=== PATIENT | female | born 1935 | race Caucasian/White ===

== ENCOUNTER → 2023-04-29 | Emergency (ER) | payer OTHER ==
[~2023-04-29] MED LIST: AMOX/K CLAV 875 MG TAB ONE; CEFTRIAXONE 1000 MG/VIAL ONE; HYDROCODONE/APAP 5/325 MG TAB ONE; MOXIFLOXACIN HCL 0.5% 3ML OPTH OPTH SCH
[2023-04-29 08:26] LABS: Absolute Lymphocytes (CBC) 1.2 K/uL (0.7-4.9); Hematocrit 37.4 % (36.0-45.0); Lymphocytes % 9.4 % (15.3-44.8); MCV 97.6 fL (80-100); Platelets 283 thou/uL (152-406); RBC Red Blood Cell Count 3.83 M/uL (3.86-4.86)
--- NOTE | 2023-04-29 08:45 | RAD REPORT ---
EXAM DESCRIPTION: CT - Head Brain Wo Cont - 04/29/2023 8:25 am CLINICAL HISTORY: Headache COMPARISON: None TECHNIQUE: Computed axial tomography of the head was obtained. IV contrast was not requested. All CT scans are performed using dose optimization technique as appropriate and may include automated exposure control or mA/KV adjustment according to patient size. FINDINGS: An intracranial bleed is not seen The ventricles are normal in caliber No extra-axial fluid collection is noted. Prominent cerebral atrophy Mild moderate low-density areas within periventricular, deep and subcortical white matter likely repr esent ischemic changes secondary to small vessel disease. Mild to moderate ethmoid sphenoid and frontal sinusitis. Small amount of fluid within the mastoids IMPRESSION: No acute intracranial abnormality is seen Mild to moderate ethmoid sphenoid and frontal sinusitis If patient's symptoms persist MRI of the brain would be recommended
[2023-04-29 08:48] LABS: Albumin 3.3 g/dL (3.4-5.0); Bilirubin Total 0.6 mg/dL (0.2-1.0); Potassium 3.8 mEq/L (3.5-5.1); Protein, Total 6.8 g/dL (6.4-8.2)
--- NOTE | 2023-04-29 08:53 | ER ---
Nurse's Notes [facility] Name: Rosita Mills Age: 87 yrs Sex: Female : 1935 Arrival Date: 04/29/2023 Time: 07:20 Bed 20 Private MD: Diagnosis: Acute serous otitis media, left ear;Other infective otitis externa, left ear;Acute sphenoidal sinusitis;Acute ethmoidal sinusitis;Elevated white blood cell count Presentation: 04/29 07:55 Chief complaint: Patient's son or daughter states: pt woke up in the middle of the kc6 night with severe sharp left ear pain. daughter states pt hit her head yesterday, denies LOC. Coronavirus screen: At this time, the client does not indicate any symptoms associated with coronavirus-19. Ebola Screen: No symptoms or risks identified at this time. Initial Sepsis Screen: Does the patient meet any 2 criteria? No. Patient's initial sepsis screen is negative. Does the patient have a suspected source of infection? No. Patient's initial sepsis screen is negative. Risk Assessment: Do you want to hurt yourself or someone else? Patient reports no desire to harm self or others. Onset of symptoms was April 29, 2023. 07:55 Method Of Arrival: Ambulatory [facility] 07:55 Acuity: SID 3 kc6 Triage Assessment: 07:56 General: Appears in no apparent distress. uncomfortable, well groomed, well developed, kc6 Behavior is calm, cooperative, appropriate for age. Pain: Complains of pain in left ear. EENT: Reports decreased hearing in right ear pain in left ear. Neuro: Level of Consciousness is awake, alert, obeys commands, Oriented to person, place, time, situation, Appropriate for age. Cardiovascular: Capillary refill < 3 seconds. Respiratory: Airway is patent Trachea midline Respiratory effort is even, unlabored, Respiratory pattern is regular, symmetrical. GI: No signs and/or symptoms were reported involving the gastrointestinal system. : No signs and/or symptoms were reported regarding the genitourinary system. Derm: No signs and/or symptoms reported regarding the dermatologic system. Skin is intact, is healthy with good turgor, Skin is pink, warm \T\ dry. Musculoskeletal: No signs and/or symptoms reported regarding the musculoskeletal system. Circulation, motion, and sensation intact. Capillary refill < 3 seconds, Range of motion: intact in all extremities. 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 - Social history:: Smoking status: Patient denies any tobacco usage or history of. Screenin:58 [facility] ED Fall Risk Assessment (Adult) History of falling in the last 3 months, kc6 including since admission Yes- single mechanical fall (1 pt) Confusion or Disorientation No (0 pts) Intoxicated or Sedated No (0 pts) Impaired Gait No (0 pts) Mobility Assist Device Used No (0 pt) Altered Elimination No (0 pt) Score/Fall Risk Level 0 - 2 = Low Risk. Abuse screen: Denies threats or abuse. Denies injuries from another. Nutritional screening: No deficits noted. Tuberculosis screening: No symptoms or risk factors identified. Assessment: 07:59 Reassessment: please see triage assessment. kc6 Vital Signs: 07:55 BP 147 / 91; Pulse 62; Resp 16 S; Temp 98(O); Pulse Ox 100% on R/A; Weight 45.36 kg kc6 (R); Height 4 ft. 8 in. (R); 07:55 Body Mass Index 22.42 (45.36 kg, 142.24 cm) kc6 [place] Coma Score: 08:04 Eye Response: spontaneous(4). Motor Response: obeys commands(6). Verbal Response: casandra oriented(5). Total: 15. ED Course: 07:25 Patient arrived in ED. ts1 07:26 Neftaly Moreira MD is Attending Physician. casandra 07:42 Syeda Rodríguez RN is Primary Nurse. kc6 07:56 Triage completed. kc6 07:56 Arm band placed on. kc6 07:58 Patient maintains SpO2 saturation greater than 95% on room air. kc6 07:59 Patient has correct armband on for positive identification. Bed in low position. Call [facility] light in reach. Side rails up X2. Adult w/ patient. Client placed on continuous cardiac and pulse oximetry monitoring. NIBP monitoring applied. 08:20 Inserted saline lock: 20 gauge in right antecubital area, using aseptic technique. kc6 Blood collected. 08:27 CT Head Brain wo Cont In Process Unspecified. EDWI 08:51 Amy Womack MD is Referral Physician. [facility] 09:04 No provider procedures requiring assistance completed. IV discontinued, intact, kc6 bleeding controlled, No redness/swelling at site. Pressure dressing applied. Administered Medications: 08:20 Drug: HYDROcodone-acetaminophen PO 5 mg-325 mg 1 tabs PO once Route: PO; kc6 09:04 Follow up: Response: No adverse reaction; Pain is decreased; RASS: Alert and Calm (0) kc6 08:20 Drug: Rocephin IV 1 grams IV at per protocol once; Given slow IV push per pharmacy kc6 instructions Route: IV; Rate: per protocol; Site: right antecubital; 09:04 Follow up: Response: No adverse reaction; IV Status: Completed infusion kc6 08:20 Drug: Amoxicillin-Clavulanate PO 875 mg PO once Route: PO; kc6 09:04 Follow up: Response: No adverse reaction [facility] 08:48 Drug: moxifloxacin Drops 0.5 % (Moxeza) 4 drops Ophthalmic once; to left ear {Note: kc6 left ear.} Route: Ophthalmic; Site: left eye; 09:04 Follow up: Response: No adverse reaction kc6 Medication: 09:04 VIS not applicable for this client. kc6 Outcome: 08:53 Discharge ordered by . [facility] 09:04 Discharged to home ambulatory, with family, kc6 09:04 Condition: improved 09:04 Discharge instructions given to patient, family, Instructed on discharge instructions, follow up and referral plans. medication usage, Demonstrated understanding of instructions, follow-up care, medications, Prescriptions given X 4, 09:05 Patient left the ED. kc6 Signatures: Dispatcher [employer] EDMS Neftaly Moreira MD MD cha Campbell, Kaitlyn, RN RN [id number] Jessica Archuleta PAS PAS ts1
--- NOTE | 2023-04-29 08:53 | EDPHYS ---
Physician Documentation [facility] Name: Rosita Mills Age: 87 yrs Sex: Female : 1935 Arrival Date: 04/29/2023 Time: 07:20 Bed 20 Private MD: MARCELINA Physician Neftaly Moreira HPI: 04/29 08:02 This 87 yrs old Female presents to ER via Ambulatory with complaints of Ear casandra Pain. 08:02 The patient presents with drainage, pain. The complaints affect the left ear. Onset: casandra The symptoms/episode began/occurred 2 day(s) ago. Modifying factors: The symptoms are alleviated by nothing, the symptoms are aggravated by nothing. Associated signs and symptoms: The patient has no apparent associated signs or symptoms. Severity of symptoms: At their worst the symptoms were moderate in the emergency department the symptoms are unchanged. The patient has not experienced similar symptoms in the past. 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 - Social history:: Smoking status: Patient denies any tobacco usage or history of. ROS: 08:03 Constitutional: Negative for fever, chills, and weight loss, Eyes: Negative for injury, casandra pain, redness, and discharge, Neck: Negative for injury, pain, and swelling, Cardiovascular: Negative for chest pain, palpitations, and edema, Respiratory: Negative for shortness of breath, cough, wheezing, and pleuritic chest pain, Abdomen/GI: Negative for abdominal pain, nausea, vomiting, diarrhea, and constipation, Back: Negative for injury and pain, : Negative for injury, bleeding, discharge, and swelling, MS/Extremity: Negative for injury and deformity, Skin: Negative for injury, rash, and discoloration, Neuro: Negative for headache, weakness, numbness, tingling, and seizure, Psych: Negative for depression, anxiety, suicide ideation, homicidal ideation, and hallucinations, Allergy/Immunology: Negative for hives, rash, and allergies, Endocrine: Negative for neck swelling, polydipsia, polyuria, polyphagia, and marked weight changes, Hematologic/Lymphatic: Negative for swollen nodes, abnormal bleeding, and unusual bruising, 08:03 ENT: Positive for ear pain, Exam: 08:03 Constitutional: This is a well developed, well nourished patient who is awake, alert, casandra and in no acute distress. Head/Face: Normocephalic, atraumatic. Eyes: Pupils equal round and reactive to light, extra-ocular motions intact. Lids and lashes normal. Conjunctiva and sclera are non-icteric and not injected. Cornea within normal limits. Periorbital areas with no swelling, redness, or edema. Neck: Trachea midline, no thyromegaly or masses palpated, and no cervical lymphadenopathy. Supple, full range of motion without nuchal rigidity, or vertebral point tenderness. No Meningismus. Chest/axilla: Normal chest wall appearance and motion. Nontender with no deformity. No lesions are appreciated. Cardiovascular: Regular rate and rhythm with a normal S1 and S2. No gallops, murmurs, or rubs. Normal PMI, no JVD. No pulse deficits. Respiratory: Lungs have equal breath sounds bilaterally, clear to auscultation and percussion. No rales, rhonchi or wheezes noted. No increased work of breathing, no retractions or nasal flaring. Abdomen/GI: Soft, non-tender, with normal bowel sounds. No distension or tympany. No guarding or rebound. No evidence of tenderness throughout. Back: No spinal tenderness. No costovertebral tenderness. Full range of motion. Female : Normal external genitalia. Skin: Warm, dry with normal turgor. Normal color with no rashes, no lesions, and no evidence of cellulitis. MS/ Extremity: Pulses equal, no cyanosis. Neurovascular intact. Full, normal range of motion. Neuro: Awake and alert, GCS 15, oriented to person, place, time, and situation. Cranial nerves II-XII grossly intact. Motor strength 5/5 in all extremities. Sensory grossly intact. Cerebellar exam normal. Normal gait. Psych: Awake, alert, with orientation to person, place and time. Behavior, mood, and affect are within normal limits. 08:03 ENT: Ear canal(s): erythema, that is minimal, of the left canal, TM's: dullness, Mouth: is normal, no acute changes, Posterior pharynx: is normal, no acute changes, Vital Signs: 07:55 BP 147 / 91; Pulse 62; Resp 16 S; Temp 98(O); Pulse Ox 100% on R/A; Weight 45.36 kg kc6 (R); Height 4 ft. 8 in. (R); 07:55 Body Mass Index 22.42 (45.36 kg, 142.24 cm) kc6 [place] Coma Score: 08:04 Eye Response: spontaneous(4). Motor Response: obeys commands(6). Verbal Response: casandra oriented(5). Total: 15. MDM: 07:26 Patient medically screened. [facility] 08:04 Differential diagnosis: otitis media, otitis externa, acute otalgia, cerumen impaction. [facility] Data reviewed: vital signs, nurses notes, lab test result(s), radiologic studies, CT scan. Consideration of Admission/Observation Escalation of care including admission/observation considered. I considered the following discharge prescriptions or medication management in the emergency department Medications were administered in the Emergency Department. See MAR. Test considered but Not performed: MRI: no mri brain. Care significantly affected by the following chronic conditions: deaf, cataract, carpal tunnel. 04/29 08:02 Order name: CBC with Diff; Complete Time: 08:36 [facility] 04/29 08:02 Order name: Comprehensive Metabolic Panel; Complete Time: 08:51 [facility] 04/29 08:02 Order name: CT Head Brain wo Cont; Complete Time: 08:51 [facility] 04/29 08:02 Order name: IV Start; Complete Time: 08:19 [facility] Administered Medications: 08:20 Drug: HYDROcodone-acetaminophen PO 5 mg-325 mg 1 tabs PO once Route: PO; 6 09:04 Follow up: Response: No adverse reaction; Pain is decreased; RASS: Alert and Calm (0) 6 08:20 Drug: Rocephin IV 1 grams IV at per protocol once; Given slow IV push per pharmacy kc6 instructions Route: IV; Rate: per protocol; Site: right antecubital; 09:04 Follow up: Response: No adverse reaction; IV Status: Completed infusion kc6 08:20 Drug: Amoxicillin-Clavulanate PO 875 mg PO once Route: PO; kc6 09:04 Follow up: Response: No adverse reaction [facility] 08:48 Drug: moxifloxacin Drops 0.5 % (Moxeza) 4 drops Ophthalmic once; to left ear {Note: kc6 left ear.} Route: Ophthalmic; Site: left eye; 09:04 Follow up: Response: No adverse reaction kc6 Disposition Summary: 04/29/23 08:53 Discharge Ordered Notes: Location: Home [facility] Problem: new casandra Symptoms: have improved casandra Condition: Stable casandra Diagnosis - Acute serous otitis media, left ear casandra - Other infective otitis externa, left ear casandra - Acute sphenoidal sinusitis casandra - Acute ethmoidal sinusitis casandra - Elevated white blood cell count casandra Followup: casandra - With: Private Physician - When: 2 - 3 days - Reason: Recheck today's complaints, Continuance of care, Re-evaluation by your physician Followup: casandra - With: Amy Womack MD - When: 2 - 3 days - Reason: Recheck today's complaints, Re-evaluation by your physician Discharge Instructions: - Discharge Summary Sheet casandra - Otitis Media, Adult casandra - Otitis Externa casandra - Sinusitis, Adult casandra - Otitis Externa, [id number] casandra - Sinusitis, Adult, [id number] casandra - Ear Drops, Adult, [id number] [facility] Forms: - Medication Reconciliation Form [facility] - Thank You Letter [facility] - Antibiotic Education [facility] - Prescription Opioid Use [facility] - Patient Portal Instructions [facility] - Leadership Thank You Letter [facility] Prescriptions: - acetaminophen-codeine 300-30 mg Oral tablet - take 1 tablet ORAL route every 6 hours; 20 tablet; Refills: 0, Product [facility] Selection Permitted - Augmentin 500-125 mg Oral Tablet - take 1 tablet ORAL route every 8 hours for 10 days; 30 tablet; Refills: 0, [facility] Product Selection Permitted - Ciprodex 0.3-0.1 % Otic drops, suspension - instill 4 drops OTIC route every 12 hours for 7 days , for ears ONLY; 10 casandra milliliter; Refills: 0, Product Selection Permitted Signatures: Dispatcher [employer] Neftaly Trujillo MD MD cha Campbell, Kaitlyn RN RN kc6
[2023-04-29 11:09] VITALS: BP 147/91; TEMP 98; O2SAT 100
== END ==
LOC: ER 07:20
DX: H65.02 Acute serous otitis media, left ear (principal); H60.392 Other infective otitis externa, left ear; J01.30 Acute sphenoidal sinusitis, unspecified; J01.20 Acute ethmoidal sinusitis, unspecified; D72.829 Elevated white blood cell count, unspecified
CPT/HCPCS: 96365; 85025; 36415; 80053; 70450; 99285; J0696

== ENCOUNTER → 2023-06-07 | Emergency (ER) | payer OTHER ==
[~2023-06-07] MED LIST changes: -AMOX/K CLAV 875 MG TAB ONE; -CEFTRIAXONE 1000 MG/VIAL ONE; +FENTANYL CITR 100 MCG/2 ML ONE; -HYDROCODONE/APAP 5/325 MG TAB ONE; -MOXIFLOXACIN HCL 0.5% 3ML OPTH OPTH SCH; +NA CHLORIDE 0.9% 500 ML ONE; +ONDANSETRON 4 MG/2 ML VIAL ONE; +propofoL 200 MG/20 ML VIAL IV ONE
--- NOTE | 2023-06-07 16:24 | RAD REPORT ---
EXAM DESCRIPTION: RAD - Forearm Right - 06/07/2023 3:45 pm CLINICAL HISTORY: PAIN COMPARISON: No comparisons TECHNIQUE: Right forearm, 2 views. FINDINGS: Mildly comminuted distal radial metaphyseal fracture with some posteriorly and laterally d isplaced distal fragments. Volar subluxation of the proximal aspect of the radius relative to the car pal bones, although the radiocarpal articulation appears grossly preserved. There is evidence periost eal reaction. No foreign body. Soft tissue swelling about the wrist. IMPRESSION: Mildly comminuted distal radial metaphyseal fracture with some posteriorly and laterally displaced distal fragments. Volar subluxation of the proximal aspect of the radius relative to the c arpal bones.
--- NOTE | 2023-06-07 16:33 | RAD REPORT ---
EXAM DESCRIPTION: RAD - Hand Right 3 View - 06/07/2023 3:45 pm CLINICAL HISTORY: PAIN COMPARISON: No comparisons TECHNIQUE: Right hand, 3 views. FINDINGS: Distal radius fracture better evaluated on the forearm radiographs. Volar subluxation of t he second and third metacarpophalangeal articulations. Scattered moderate to advanced degenerative changes There is no dislocation or periosteal reaction noted. No foreign body or other soft tissue abnormalit y. IMPRESSION: Distal radius fracture better evaluated on the forearm radiographs. Volar subluxation of the second and third metacarpophalangeal articulations.
--- NOTE | 2023-06-07 19:29 | EDPHYS ---
Physician Documentation [facility] Name: Rosita Mills Age: 87 yrs Sex: Female : 1935 Arrival Date: 06/07/2023 Time: 14:41 Bed 14 Private MD: ED Physician Dontae Cisse HPI: 06/07 15:30 This 87 yrs old Female presents to ER via Wheelchair with complaints of Wrist Injury, cp Wrist Pain, Fall Injury. 15:30 The patient or guardian reports decreased range of motion, deformity, injury, pain. The cp complaints affect the right wrist diffusely. Context: resulted from a fall, on an outstretched hand. Onset: The symptoms/episode began/occurred just prior to arrival. Associated signs and symptoms: The patient has no apparent associated signs or symptoms. Historical: - Allergies: 14:57 No Known Allergies; tl4 - Home Meds: 17:44 escitalopram oxalate 5 mg oral tablet 1 tab daily for anxiety with depression [Active]; tl4 pregabalin 100 mg Oral capsule 1 cap daily [Active]; donepezil 5 mg oral tablet 1 tab daily [Active]; Singulair 10 mg Oral tablet 1 tab daily [Active]; omeprazole 40 mg Oral capsule,delayed release (e.c.) 1 cap daily for gastroesophageal reflux disease [Active]; trazodone 100 mg Oral tablet 1 tab every day at bedtime [Active]; oxybutynin chloride 5 mg Oral tablet 1 tab 2 times per day [Active]; simvastatin 10 mg Oral tablet 1 tab daily [Active]; - PMHx: 14:57 carpal tunnel; Cataract; Deaf in right ear; tl4 - PSHx: 14:57 Craniotomy; Tonsillectomy; tl4 17:44 CATARACT; CARPAL TUNNEL; ROTATOR CUFF; tl4 - Immunization history:: Adult Immunizations unknown. - Social history:: Smoking status: Patient denies any tobacco usage or history of. ROS: 15:35 MS/extremity: Positive for injury or acute deformity, decreased range of motion, pain, cp swelling, tenderness, of the right wrist, Negative for paresthesias, 15:35 Eyes: Negative for injury, pain, redness, and discharge, cp 15:35 Constitutional: Negative for body aches, chills, fever, poor PO intake, 15:35 Neck: Negative for pain with movement, pain at rest, stiffness, tenderness, bony tenderness, 15:35 Cardiovascular: Negative for chest pain, 15:35 Respiratory: Negative for cough, shortness of breath, wheezing, 15:35 Back: Negative for pain at rest, pain with movement, 15:35 Neuro: Negative for altered mental status, dizziness, headache, loss of consciousness, numbness, syncope, weakness, 15:35 All other systems are negative, Exam: 15:45 Constitutional: The patient appears in no acute distress, alert, awake, cp non-diaphoretic, non-toxic, well developed, well nourished, obviously ill, uncomfortable, 15:45 Head/Face: Normocephalic, atraumatic. cp 15:45 Eyes: Periorbital structures: appear normal, Pupils: equal, round, and reactive to light and accomodation, Extraocular movements: intact throughout, Conjunctiva: normal, no exudate, no injection, Sclera: no appreciated abnormality, Lids and lashes: appear normal, 15:45 ENT: External ear(s): are unremarkable, Nose: is normal, Mouth: Lips: moist, Oral mucosa: pink and intact, moist, Posterior pharynx: Airway: no evidence of obstruction, patent, 15:45 Neck: C-spine: vertebral tenderness, is not appreciated, crepitus, is not appreciated, ROM/movement: pain, is not appreciated, limited range of motion, is not appreciated, 15:45 Chest/axilla: Inspection: normal, Palpation: crepitus, is not appreciated, tenderness, is not appreciated, 15:45 Cardiovascular: Rate: bradycardic, Rhythm: regular, Edema: is not appreciated, JVD: is not appreciated, 15:45 Respiratory: the patient does not display signs of respiratory distress, Respirations: normal, no use of accessory muscles, no retractions, labored breathing, is not present, Breath sounds: are clear throughout, no decreased breath sounds, no stridor, no wheezing, 15:45 Abdomen/GI: Inspection: abdomen appears normal, Palpation: abdomen is soft and non-tender, in all quadrants, 15:45 Musculoskeletal/extremity: Extremities: grossly normal except: noted in the right wrist: decreased ROM, deformity, pain, swelling, tenderness, ROM: limited active range of motion, in the right wrist, limited passive range of motion due to pain, in the right wrist, Pulses: noted to be 2+ in the right radial artery, the right wrist Severe pain noted. 15:45 Skin: skin tear noted dorsal side of right wrisyt. 15:45 Neuro: Orientation: no acute changes, per family, Mentation: no acute changes, per family, Vital Signs: 14:55 BP 160 / 78; Pulse 58; Resp 20; Temp 98.3(O); Pulse Ox 100% on R/A; Weight 45.36 kg; tl4 Height 4 ft. 8 in. ; Pain 10/10; 19:00 BP 167 / 84; Pulse 60; Resp 17 S; Pulse Ox 96% on R/A; ha1 20:04 BP 176 / 76; Pulse 56; Resp 17 S; Pulse Ox 98% on R/A; ha1 14:55 Body Mass Index 22.42 (45.36 kg, 142.24 cm) tl4 14:55 Pain Scale: Adult tl4 Procedures: 18:59 Reduction: of the right wrist, using traction, manipulation, Immobilized with wrist ec2 splint, Patient tolerated well. Post reduction film - reveals normal alignment. Joint Treatment: Moderate sedation: Pre-procedure assessment: ASA physical classification: I - healthy, no underlying organic disease, Airway assessment: able to hyperextend neck, able to maintain airway, can open mouth without difficulty, Mallampati classification of tongue size: I - faucial pillars, soft palate, and uvula can be fully visualized, Monitoring during procedure: furnace converter, continuous pulse oximetry, nurse at bedside at all times, Medications employed: Propofol, Post-procedure assessment: the patient is mildly sedated. MDM: 15:06 Patient medically screened. cp 06/07 15:13 Order name: XRAY Hand RIGHT 3 View; Complete Time: 19:30 cp 06/07 15:13 Order name: XRAY Forearm RIGHT; Complete Time: 19:30 cp 06/07 18:25 Order name: Forearm Right XRAY; Complete Time: 19:39 ec2 06/07 15:13 Order name: IV; Complete Time: 16:39 cp 06/07 16:37 Order name: Conscious Sedation; Complete Time: 19:15 cp 06/07 16:39 Order name: Splint - Sugar Tong - Forearm; Complete Time: 19:15 cp 06/07 19:50 Order name: Jason; Complete Time: 19:59 cp Administered Medications: 18:03 Drug: fentaNYL (PF) IVP 25 mcg IVP once Route: IVP; Site: left forearm; tl4 18:40 Follow up: Response: No adverse reaction; Pain is decreased nj1 18:03 Drug: NS 0.9% IV 500 ml IV at 75 ml/hr continuous Route: IV; Rate: 75 ml/hr; Site: left tl4 forearm; Delivery: Dial-a-flow; 20:06 Follow up: Response: No adverse reaction; IV Status: Completed infusion; IV Intake: ha1 500ml 18:40 Drug: Ondansetron IVP 4 mg IVP once; over 2 minutes Route: IVP; Site: left forearm; nj1 19:20 Follow up: Response: No adverse reaction nj1 18:54 Drug: Propofol IVP 20 mg IVP once; Document RASS score. {Note: Given in two doses by Dr day Cisse. 40 mg at 1845 and 20 mg at 1854.1854.} Route: IVP; Site: left forearm; 19:20 Follow up: Response: RASS: Drowsy (-1) nj1 19:18 Not Given (Duplicate Order): mg IVP once; Document RASS score. nj1 Disposition: 19:00 I agree with the assessment and plan of care. I reviewed the patient's care provided by 2 Advanced Practice Provider \T\ agree w/ the diagnosis \T\ care plan. I personally saw the pt \T\ performed a substantive portion of the visit, incldng all aspects of the (History/Exam/Medical Decision Making). I saw the patient with PA, patient with a displaced wrist fracture. I assisted with the procedural sedation and risk reduction. Repeat x-ray independently reviewed and interpreted by me, shows interval reduction of the distal bony fragment. Will have the patient follow-up outpatient with orthopedic surgery and with pain medications as needed.. Disposition Summary: 06/07/23 19:29 Discharge Ordered Notes: Location: Home ec2 Condition: Stable ec2 Diagnosis - Wrist Fracture ec2 Followup: ec2 - With: Benito Luna MD - When: - Reason: Recheck today's complaints Discharge Instructions: - Discharge Summary Sheet ec2 - Wrist Fracture Treated With Immobilization, [id number] ec2 Forms: - Medication Reconciliation Form ec2 - Thank You Letter ec2 - Antibiotic Education ec2 - Prescription Opioid Use ec2 - Patient Portal Instructions ec2 - Leadership Thank You Letter ec2 Prescriptions: - acetaminophen-codeine 300-15 mg Oral tablet - take 1 tablet ORAL route 2 times per day; 15 tablet; Refills: 0, Product ec2 Selection Permitted Addendum: 06/11/2023 00:59 I agree with the assessment and plan of care. e c2 Signatures: Dispatcher [employer] EDMT Neftaly Petersen PA PA cp Ina Shen, RN RN nj1 Dontae Cisse MD MD ec2 Arben Dailey RN RN tl4 Shana Mathis RN ha1
--- NOTE | 2023-06-07 19:29 | ER ---
Nurse's Notes [facility] Name: Rosita Mills Age: 87 yrs Sex: Female : 1935 Arrival Date: 06/07/2023 Time: 14:41 Bed 14 Private MD: Diagnosis: Wrist Fracture Presentation: 06/07 14:55 Chief complaint: Patient states: Pt fell onto her right arm on outstretched palm approx tl4 45 min ago. Pt has swelling and pain in the right wrist. +sensation. Coronavirus screen: At this time, the client does not indicate any symptoms associated with coronavirus-19. Ebola Screen: No symptoms or risks identified at this time. Initial Sepsis Screen: Does the patient meet any 2 criteria? No. Patient's initial sepsis screen is negative. Does the patient have a suspected source of infection? No. Patient's initial sepsis screen is negative. Risk Assessment: Do you want to hurt yourself or someone else? Patient reports no desire to harm self or others. Onset of symptoms was June 07, 2023 at 14:15. 14:55 Method Of Arrival: Wheelchair tl4 14:55 Acuity: SID 3 tl4 Triage Assessment: 14:57 General: Appears uncomfortable, Behavior is calm, cooperative. Pain: Complains of pain tl4 in right arm. EENT: No deficits noted. No signs and/or symptoms were reported regarding the EENT system. Neuro: No deficits noted. Cardiovascular: No deficits noted. Respiratory: No deficits noted. GI: No deficits noted. No signs and/or symptoms were reported involving the gastrointestinal system. : No deficits noted. No signs and/or symptoms were reported regarding the genitourinary system. Derm: No deficits noted. No signs and/or symptoms reported regarding the dermatologic system. Musculoskeletal: Reports pain in right arm swelling in right wrist. 19:00 Injury Description: Deformity sustained to right wrist and right arm is dislocated. ha1 Historical: - Allergies: 14:57 No Known Allergies; tl4 - Home Meds: 17:44 escitalopram oxalate 5 mg oral tablet 1 tab daily for anxiety with depression [Active]; tl4 pregabalin 100 mg Oral capsule 1 cap daily [Active]; donepezil 5 mg oral tablet 1 tab daily [Active]; Singulair 10 mg Oral tablet 1 tab daily [Active]; omeprazole 40 mg Oral capsule,delayed release (e.c.) 1 cap daily for gastroesophageal reflux disease [Active]; trazodone 100 mg Oral tablet 1 tab every day at bedtime [Active]; oxybutynin chloride 5 mg Oral tablet 1 tab 2 times per day [Active]; simvastatin 10 mg Oral tablet 1 tab daily [Active]; - PMHx: 14:57 carpal tunnel; Cataract; Deaf in right ear; tl4 - PSHx: 14:57 Craniotomy; Tonsillectomy; tl4 17:44 CATARACT; CARPAL TUNNEL; ROTATOR CUFF; tl4 - Immunization history:: Adult Immunizations unknown. - Social history:: Smoking status: Patient denies any tobacco usage or history of. Screenin:00 [facility] ED Fall Risk Assessment (Adult) History of falling in the last 3 months, ha1 including since admission Yes- single mechanical fall (1 pt) Confusion or Disorientation No (0 pts) Intoxicated or Sedated No (0 pts) Impaired Gait No (0 pts) Mobility Assist Device Used No (0 pt) Altered Elimination No (0 pt) Score/Fall Risk Level 3 or more points = High Risk Oriented to surroundings, Maintained a safe environment, Hourly rounding (assess needs \T\ fall precautionary measures) done. Abuse screen: Denies threats or abuse. Denies injuries from another. Nutritional screening: No deficits noted. Tuberculosis screening: No symptoms or risk factors identified. Assessment: 18:30 General: Appears in no apparent distress. uncomfortable, Behavior is calm, cooperative, nj1 appropriate for age. 18:30 Pain: Complains of pain in right wrist. Neuro: Level of Consciousness is awake, alert, nj1 obeys commands, Oriented to person, place, situation. Cardiovascular: Patient's skin is warm and dry. Cardiovascular: Patient's skin is warm and dry. Respiratory: Airway is patent Respiratory effort is even, unlabored. Musculoskeletal: Bony deformity noted of right wrist Reports pain in right wrist. 18:30 Reassessment: Patient states feeling better. nj1 19:00 General: Appears uncomfortable, Behavior is calm, cooperative. Pain: Complains of pain ha1 in right arm Pain does not radiate. Pain currently is 3 out of 10 on a pain scale. Neuro: Level of Consciousness is awake, alert, pt. is under medication of conscious sedation. Nurse ina in the room with patient . Cardiovascular: Capillary refill < 3 seconds Patient's skin is warm and dry. Respiratory: Airway is patent Respiratory effort is even, unlabored, Respiratory pattern is regular, symmetrical. Musculoskeletal: Circulation, motion, and sensation intact. Bony deformity noted of right arm Reports pain in right arm. 20:02 Reassessment: Patient and/or family updated on plan of care and expected duration. Pain ha1 level reassessed. Patient is alert, oriented x 3, equal unlabored respirations, skin warm/dry/pink. Patient states feeling better. Patient states symptoms have improved. Vital Signs: 14:55 BP 160 / 78; Pulse 58; Resp 20; Temp 98.3(O); Pulse Ox 100% on R/A; Weight 45.36 kg; tl4 Height 4 ft. 8 in. ; Pain 10/10; 19:00 BP 167 / 84; Pulse 60; Resp 17 S; Pulse Ox 96% on R/A; ha1 20:04 BP 176 / 76; Pulse 56; Resp 17 S; Pulse Ox 98% on R/A; ha1 14:55 Body Mass Index 22.42 (45.36 kg, 142.24 cm) tl4 14:55 Pain Scale: Adult tl4 ED Course: 14:45 Patient arrived in ED. kj1 14:57 Triage completed. tl4 14:58 Arm band placed on left wrist. tl4 15:04 Neftaly Petersen PA is PHCP. cp 15:04 Vance Marsh MD is Attending Physician. cp 15:46 XRAY Hand RIGHT 3 View In Process Unspecified. EDMS 15:46 XRAY Forearm RIGHT In Process Unspecified. EDMS 16:39 Missed attempt(s): 22 gauge in left antecubital area. bc6 16:39 Inserted saline lock: 24 gauge in left forearm, using aseptic technique. bc6 17:57 Dontae Cisse MD is Attending Physician. cp 18:17 Ina Shen, RN is Primary Nurse. nj1 18:45 Assist provider with reduction of right wrist using manipulation, Set up for procedure. nj1 Performed by Neftaly Cisse at bedside performing conscious sedation. 19:00 Patient has correct armband on for positive identification. Placed in gown. Bed in low ha1 position. Call light in reach. Side rails up X 1. Adult w/ patient. 19:03 Forearm Right XRAY In Process Unspecified. EDMS 19:29 Benito Luna MD is Referral Physician. ec2 20:01 Provided Education on: follow up with orthopedic . ha1 20:01 IV discontinued, intact, bleeding controlled, No redness/swelling at site. Pressure ha1 dressing applied. Administered Medications: 18:03 Drug: fentaNYL (PF) IVP 25 mcg IVP once Route: IVP; Site: left forearm; tl4 18:40 Follow up: Response: No adverse reaction; Pain is decreased nj1 18:03 Drug: NS 0.9% IV 500 ml IV at 75 ml/hr continuous Route: IV; Rate: 75 ml/hr; Site: left tl4 forearm; Delivery: Dial-a-flow; 20:06 Follow up: Response: No adverse reaction; IV Status: Completed infusion; IV Intake: ha1 500ml 18:40 Drug: Ondansetron IVP 4 mg IVP once; over 2 minutes Route: IVP; Site: left forearm; nj1 19:20 Follow up: Response: No adverse reaction nj1 18:54 Drug: Propofol IVP 20 mg IVP once; Document RASS score. {Note: Given in two doses by Dr day Cisse. 40 mg at 1845 and 20 mg at 1854.1854.} Route: IVP; Site: left forearm; 19:20 Follow up: Response: RASS: Drowsy (-1) nj1 19:18 Not Given (Duplicate Order): [id number] mg IVP once; Document RASS score. nj1 Medication: 20:01 VIS not applicable for this client. ha1 Intake: 20:06 IV: 500ml; Total: 500ml. ha1 Outcome: 19:29 Discharge ordered by . ec2 20:00 Discharged to home ambulatory, with family, ha1 20:00 Condition: stable 20:00 Discharge instructions given to patient, family, Instructed on discharge instructions, follow up and referral plans. medication usage, Demonstrated understanding of instructions, follow-up care, medications, Prescriptions given X 1, 20:07 Patient left the ED. ha1 Signatures: Dispatcher [employer] EDTX Neftaly Petersen PA PA cp Jackson, Kandis kj1 Shana Mathis RN RN ha1 Teresa Chery 6 Ina Shen RN RN nj1 Dontae Cisse MD MD ec2 Arben Dailey RN RN tl4 Corrections: (The following items were deleted from the chart) 19:24 18:45 Assist provider with reduction of right wrist using manipulation, Set up for nj1 procedure. Performed by Dontae Cisse MD nj1
--- NOTE | 2023-06-07 19:34 | RAD REPORT ---
EXAM DESCRIPTION: RAD - Forearm Right - 06/07/2023 7:01 pm CLINICAL HISTORY: post reduction COMPARISON: Forearm Right dated 06/07/2023 TECHNIQUE: Right forearm, 2 views. FINDINGS: Improved alignment of the radiocarpal articulation following closed reduction of the dista l radius fracture fragments. A degree of negative ulnar variance appears to be present. Fiberglass sp lint in place, obscuring fine bony and soft-tissue detail. There is no dislocation or periosteal reac tion noted. No foreign body or other soft tissue abnormality. IMPRESSION: Improved alignment of distal radius fractures following closed reduction.
[2023-06-07 20:33] VITALS: BP 176/76; TEMP 98.3; O2SAT 98
== END ==
LOC: ER 14:41
DX: S52.501A Unspecified fracture of the lower end of right radius, initial encounter for closed fracture (principal); W18.30XA Fall on same level, unspecified, initial encounter
CPT/HCPCS: 73130; 73090 ×2; 25605; J2704; J3010; J2405; J7040

== ENCOUNTER 2023-08-22 20:34 | Emergency (ER) | payer OTHER ==
--- NOTE | 2023-08-22 22:10 | RAD REPORT ---
EXAM DESCRIPTION: RAD - Chest Single View - 08/22/2023 10:03 pm CLINICAL HISTORY: CHEST PAIN Chest pain. COMPARISON: Thorax Wo Con dated 05/16/2023; Ct Skull/Thigh dated 05/31/2023 FINDINGS: Portable technique limits examination quality. Chronic elevation right hemidiaphragm is noted. The lungs are emphysematous. The heart is moderately enlarged in size. Calcified right chest wall lesion. IMPRESSION: No acute intrathoracic process suspected.
[2023-08-22] MEDS ORDERED: cloNIDine HCL 0.1 MG TAB ONE (22:23)
[2023-08-22] MEDS ORDERED: LOSARTAN POTASSIUM 50 MG TABLET ONE (22:23)
[2023-08-22 22:46] LABS: Absolute Basophils 0.1 K/uL (0-0.5); Absolute Eosinophils 0.3 K/uL (0-0.5); Absolute Lymphocytes (CBC) 2.1 K/uL (0.7-4.9); Absolute Monocytes 0.7 K/uL (0.1-1.3); Absolute Neutrophil 2.9 K/uL (1.8-8.0); Basophils % 1.2 % (0-1.3); Eosinophils % 4.5 % (0-4.4); Hematocrit 34.8 % (36.0-45.0); Hemoglobin 11.4 g/dL (12.0-15.0); Lymphocytes % 34.4 % (15.3-44.8); MCHC 32.8 g/dL (32.0-36.0); MCV 97.6 fL (80-100); Monocytes % 12.3 % (3.3-12.3); Neutrophils % 47.6 % (41.7-73.7); Nucleated Red Blood Cells % 0.1 % (0-0); PT Prothrombin Time 11.6 SECONDS (9.5-12.5); Platelets 199 thou/uL (152-406); Protime INR 1.06; RBC Red Blood Cell Count 3.56 M/uL (3.86-4.86); Red Cell Distribution Width 14.4 % (12.1-15.2)
[2023-08-22 23:01] LABS: ALT/SGPT 16 U/L (13-56); AST/SGOT 18 U/L (15-37); Albumin 3.4 g/dL (3.4-5.0); Alkaline Phosphatase 83 U/L (45-117); Anion Gap 8.9 mEq/L (5.0-15.0); BUN Blood Urea Nitrogen 21 mg/dL (7-18); Bicarbonate 28 mEq/L (21-32); Bilirubin Total 0.3 mg/dL (0.2-1.0); Globulin 3.5 g/dL (2.3-3.5); Glomerular Filtration Rate 51 ml/min (=/>90); Glucose Level 86 mg/dL (74-106); NT PRO-BNP 205 pg/mL (<450); Potassium 3.9 mEq/L (3.5-5.1); Protein, Total 6.9 g/dL (6.4-8.2); Sodium Level 139 mEq/L (136-145); Troponin High Sensitivity 15.2 pg/mL (<58.9)
[2023-08-22 23:08] LABS: Bilirubin Direct < 0.2 mg/dL (0-0.2); Bilirubin Indirect, Calculated 0.1 mg/dL (0.2-0.8)
--- NOTE | 2023-08-22 23:56 | EDPHYS ---
Physician Documentation [facility] Name: Rosita Mills Age: 88 yrs Sex: Female : 1935 Arrival Date: 08/22/2023 Time: 20:34 Bed 20 Private MD: Robyn Chan ED Physician Eliecer Aguilar HPI: 08/21 20:42 This 88 yrs old Female presents to ER via Unassigned with complaints of High sp4 Blood Pressure. 08/22 03:37 Very pleasant 88-year-old female presents with elevated blood pressure which was 209/96 sp4 at home. Denied any symptoms. 03:37 Patient's medications at home include escitalopram, Lyrica, donepezil, Singulair, sp4 omeprazole, calcium and D3, trazodone, Centrum Silver, Myrbetriq, tumeric, vitamin D, melatonin, vitamin C, probiotic, Motrin as needed, simvastatin. Also Zyrtec. Patient has history of Alzheimer's type dementia, depression, neuropathy, allergies, gastric reflux, osteoporosis, insomnia, overactive bladder, and GERD. Surgeries include tonsillectomy, carpal tunnel surgery, cataracts, rotator cuff repair, craniotomy, herniated disc, left foot, retina, RSD treatment.. Historical: - Allergies: 08/21 21:10 No Known Allergies; tl4 - PMHx: 21:10 carpal tunnel; Cataract; Deaf in right ear; tl4 - PSHx: 21:10 carpal tunnel; cataract; Craniotomy; rotator cuff; Tonsillectomy; tl4 - Immunization history:: Adult Immunizations unknown. - Infectious Disease History:: Denies. - Social history:: Smoking status: Patient/guardian denies using tobacco, the patient reports quitting approximately 40 years ago. - Family history:: not pertinent. ROS: 08/22 03:37 Constitutional: Negative for fever, chills, and weight loss, sp4 All other systems are negative, Exam: 03:37 Constitutional: This is a well developed, well nourished patient who is awake, alert, sp4 and in no acute distress. Head/Face: Normocephalic, atraumatic. Eyes: Pupils equal round and reactive to light, extra-ocular motions intact. Lids and lashes normal. Conjunctiva and sclera are not injected. Cornea within normal limits. Periorbital areas with no swelling, redness, or edema. ENT: Nares patent. No nasal discharge, no septal abnormalities noted. Tympanic membranes are normal and external auditory canals are clear. Oropharynx with no redness, swelling, or masses, exudates, or evidence of obstruction, uvula midline. Mucous membranes moist. Neck: Trachea midline, no thyromegaly or masses palpated, and no cervical lymphadenopathy. Supple, full range of motion without nuchal rigidity, or vertebral point tenderness. Chest/axilla: Normal chest wall appearance and motion. Nontender with no deformity. No lesions are appreciated. Cardiovascular: Regular rate and rhythm with a normal S1 and S2. No gallops, murmurs, or rubs. Normal PMI, no JVD. No pulse deficits. Respiratory: Lungs have equal breath sounds bilaterally, clear to auscultation and percussion. No rales, rhonchi or wheezes noted. No increased work of breathing, no retractions or nasal flaring. Abdomen/GI: Soft, with normal bowel sounds. No distension or tympany. No guarding or rebound. No evidence of tenderness throughout. Back: No spinal tenderness. No costovertebral tenderness. Skin: Warm, dry with normal turgor. Normal color with no rashes, no lesions, and no evidence of cellulitis. MS/ Extremity: Pulses equal, no cyanosis. Neurovascular intact. Full, normal range of motion. Neuro: Awake and alert, GCS 15, oriented to person, place, time, and situation. Cranial nerves II-XII grossly intact. Motor strength 5/5 in all extremities. Sensory grossly intact. Psych: Awake, alert, with orientation to person, place and time. Behavior, mood, and affect are within normal limits 03:37 ECG was reviewed by the Attending Physician. 2159 includes sinus rhythm with sinus arrhythmia, rate 66. Premature atrial contractions Vital Signs: 08/21 21:08 BP 199 / 85; Pulse 75; Resp 20; Temp 98.2(O); Pulse Ox 99% on R/A; Weight 47.63 kg; tl4 Height 4 ft. 8 in. ; Pain 0/10; 21:45 BP 191 / 77; Pulse 66; Resp 17 S; Pulse Ox 98% on R/A; ha1 22:15 BP 192 / 89; Pulse 68; Resp 16 S; Pulse Ox 97% on R/A; ha1 22:45 BP 163 / 76; Pulse 66; Resp 17 S; Pulse Ox 96% on R/A; ha1 23:10 BP 153 / 65; Pulse 61; Resp 16 S; Pulse Ox 96% on R/A; ha1 23:44 BP 130 / 56; Pulse 65; Resp 16 S; Pulse Ox 96% on R/A; ha1 21:08 Body Mass Index 23.54 (47.63 kg, 142.24 cm) tl4 21:08 Pain Scale: Adult tl4 MDM: 20:42 Patient medically screened. sp4 23:50 ED course: EXAM DESCRIPTION: RAD - Chest Single View - 08/22/2023 10:03 pm CLINICAL sp4 HISTORY: CHEST PAIN Chest pain. COMPARISON: Thorax Wo Con dated 05/16/2023; Ct Skull/Thigh dated 05/31/2023 FINDINGS: Portable technique limits examination quality. Chronic elevation right hemidiaphragm is noted. The lungs are emphysematous. The heart is moderately enlarged in size. Calcified right chest wall lesion. IMPRESSION: No acute intrathoracic process suspected.. 08/22 03:41 Differential diagnosis: hypertensive crisis, Malignant HTN, intracerebral hemorrhage. sp4 Data reviewed: vital signs, nurses notes, lab test result(s), EKG, radiologic studies, plain films. ED course: Patient's blood pressure has improved. We will start her on low-dose losartan 25 mg daily. Will advise follow-up with director of primary care for blood pressure control. . 08/21 20:42 Order name: Basic Metabolic Panel; Complete Time: 23:48 4 08/21 20:42 Order name: CBC with Diff; Complete Time: 23:48 sp4 08/21 20:42 Order name: LFT's; Complete Time: 23:48 4 08/21 20:42 Order name: Magnesium; Complete Time: 23:48 4 08/21 20:42 Order name: NT PRO-BNP; Complete Time: 23:48 4 08/21 20:42 Order name: PT-INR; Complete Time: 23:48 4 08/21 20:42 Order name: Troponin HS; Complete Time: 23:48 4 08/21 20:42 Order name: XRAY Chest (1 view); Complete Time: 23:48 sp4 08/21 20:42 Order name: Cardiac monitoring; Complete Time: 21:49 sp4 08/21 20:42 Order name: EKG - Nurse/Tech; Complete Time: 22:07 sp4 08/21 20:42 Order name: IV Saline Lock; Complete Time: 21:55 sp4 08/21 20:42 Order name: Labs collected and sent; Complete Time: 21:55 sp4 08/21 20:42 Order name: O2 Per Protocol; Complete Time: 21:49 sp4 08/21 20:42 Order name: O2 Sat Monitoring; Complete Time: 21:49 sp4 EC:37 Rate is 66 beats/min. Rhythm is regular, Sinus Rhythm with PACs. QRS [place] is Normal. SC sp4 interval is normal. QRS interval is normal. QT interval is normal. No Q waves. T waves are Normal. No ST changes noted. Clinical impression: No evidence of ischemia. Interpreted by me. Reviewed by me. Administered Medications: 08/21 22:29 Drug: cloNIDine PO 0.1 mg PO once Route: PO; ha1 22:45 Follow up: Response: No adverse reaction; Marked relief of symptoms; Blood pressure is ha1 lowered 22:29 Drug: Losartan PO 50 mg PO once Route: PO; ha1 22:45 Follow up: Response: No adverse reaction; Marked relief of symptoms; Blood pressure is ha1 lowered Disposition Summary: 08/22/23 23:56 Discharge Ordered Notes: Location: Home sp4 Problem: new sp4 Symptoms: have improved sp4 Condition: Stable sp4 Diagnosis - Essential (primary) hypertension sp4 - Hypertensive Urgency sp4 Followup: sp4 - With: Robyn Chan DO - When: 7 - 10 days - Reason: Recheck today's complaints Discharge Instructions: - Discharge Summary Sheet sp4 - Hypertension, Adult sp4 Forms: - Patient Portal Instructions sp4 Prescriptions: - losartan 25 mg Oral tablet - take 1 tablet ORAL route At bedtime for 30 days; 30 tablet; Refills: 0, Product sp4 Selection Permitted Signatures: Dispatcher [employer] Shana Thomson RN RN ha1 Eliecer Aguilar MD MD sp4 Logda, TARA Theodore RN tl4 Corrections: (The following items were deleted from the chart) 20:42 20:42 BASIC METABOLIC PANEL+C.LAB.BRZ ordered. EDMS EDMS 20:42 20:42 CBC+H.LAB.BRZ ordered. EDMS EDMS 20:42 20:42 HEPATIC FUNCTION+C.LAB.BRZ ordered. EDMS EDMS 20:42 20:42 MAGNESIUM+C.LAB.BRZ ordered. EDMS EDMS 20:42 20:42 PROBNP+C.LAB.BRZ ordered. EDMS EDMS 20:42 20:42 PROTIME (+INR)+COAG.LAB.BRZ ordered. EDMS EDMS 20:42 20:42 Troponin High Sensitivity+C.LAB.BRZ ordered. EDMS EDMS 20:42 20:42 Chest Single View+RAD.RAD.BRZ ordered. EDMS EDMS
--- NOTE | 2023-08-22 23:56 | ER ---
Nurse's Notes [facility] Name: Rosita Mills Age: 88 yrs Sex: Female : 1935 Arrival Date: 08/22/2023 Time: 20:34 Bed 20 Private MD: Robyn Chan Diagnosis: Essential (primary) hypertension;Hypertensive Urgency Presentation: 08/21 21:08 Chief complaint: Patient states: Pt states her BP at home was 203/92 per a home tl4 monitoring sxs that notified patient of event. Pt was advised her to be evaluated. Pt denies any [place], dizziness, or any other sxs. Coronavirus screen: At this time, the client does not indicate any symptoms associated with coronavirus-19. Ebola Screen: No symptoms or risks identified at this time. Initial Sepsis Screen: Does the patient meet any 2 criteria? No. Patient's initial sepsis screen is negative. Does the patient have a suspected source of infection? No. Patient's initial sepsis screen is negative. Risk Assessment: Do you want to hurt yourself or someone else? Patient reports no desire to harm self or others. Onset of symptoms was August 22, 2023. 21:08 Method Of Arrival: Ambulatory tl4 21:08 Acuity: SID 3 tl4 Triage Assessment: 21:11 General: Appears in no apparent distress. Behavior is calm, cooperative. Pain: Denies tl4 pain. EENT: No signs and/or symptoms were reported regarding the EENT system. Neuro: Level of Consciousness is awake, alert, obeys commands, Oriented to person, place, time, situation, Moves all extremities. Full function Gait is steady. Cardiovascular: Capillary refill < 3 seconds Patient's skin is warm and dry. Respiratory: Airway is patent Respiratory effort is even, unlabored, Respiratory pattern is regular, symmetrical. GI: No signs and/or symptoms were reported involving the gastrointestinal system. : No signs and/or symptoms were reported regarding the genitourinary system. Derm: No signs and/or symptoms reported regarding the dermatologic system. Musculoskeletal: No signs and/or symptoms reported regarding the musculoskeletal system. Historical: - Allergies: 21:10 No Known Allergies; tl4 - PMHx: 21:10 carpal tunnel; Cataract; Deaf in right ear; tl4 - PSHx: 21:10 carpal tunnel; cataract; Craniotomy; rotator cuff; Tonsillectomy; tl4 - Immunization history:: Adult Immunizations unknown. - Infectious Disease History:: Denies. - Social history:: Smoking status: Patient/guardian denies using tobacco, the patient reports quitting approximately 40 years ago. - Family history:: not pertinent. Screenin/09 00:07 [facility] ED Fall Risk Assessment (Adult) History of falling in the last 3 months, ha1 including since admission No falls in past 3 months (0 pts) Confusion or Disorientation No (0 pts) Intoxicated or Sedated No (0 pts) Impaired Gait No (0 pts) Mobility Assist Device Used No (0 pt) Altered Elimination No (0 pt) Score/Fall Risk Level 0 - 2 = Low Risk Oriented to surroundings, Maintained a safe environment, Educated pt \T\ family on fall prevention, incl call for assistance when getting out of bed, Hourly rounding (assess needs \T\ fall precautionary measures) done. Abuse screen: Denies threats or abuse. Denies injuries from another. Nutritional screening: No deficits noted. Tuberculosis screening: No symptoms or risk factors identified. Assessment: 08/21 21:12 General: Appears comfortable, Behavior is calm, cooperative. Pain: Denies pain. Neuro: ha1 Level of Consciousness is awake, alert, obeys commands, Oriented to person, place, time, situation. Neuro: Reports elevated blood pressure . Cardiovascular: Denies chest pain, Heart tones S1 S2 present Capillary refill < 3 seconds Patient's skin is warm and dry. Respiratory: Airway is patent Respiratory effort is even, unlabored, Respiratory pattern is regular, symmetrical. GI: No signs and/or symptoms were reported involving the gastrointestinal system. EENT: hard hearing . Derm: Skin is pink, warm \T\ dry. Musculoskeletal: Circulation, motion, and sensation intact. Range of motion: intact in all extremities. 22:10 Reassessment: Patient and/or family updated on plan of care and expected duration. Pain ha1 level reassessed. Patient is alert, oriented x 3, equal unlabored respirations, skin warm/dry/pink. Patient denies pain at this time. 23:00 Reassessment: Patient and/or family updated on plan of care and expected duration. Pain ha1 level reassessed. Patient is alert, oriented x 3, equal unlabored respirations, skin warm/dry/pink. Patient denies pain at this time. 23:45 Reassessment: Patient and/or family updated on plan of care and expected duration. Pain ha1 level reassessed. Patient is alert, oriented x 3, equal unlabored respirations, skin warm/dry/pink. Patient denies pain at this time. Vital Signs: 21:08 BP 199 / 85; Pulse 75; Resp 20; Temp 98.2(O); Pulse Ox 99% on R/A; Weight 47.63 kg; tl4 Height 4 ft. 8 in. ; Pain 0/10; 21:45 BP 191 / 77; Pulse 66; Resp 17 S; Pulse Ox 98% on R/A; ha1 22:15 BP 192 / 89; Pulse 68; Resp 16 S; Pulse Ox 97% on R/A; ha1 22:45 BP 163 / 76; Pulse 66; Resp 17 S; Pulse Ox 96% on R/A; ha1 23:10 BP 153 / 65; Pulse 61; Resp 16 S; Pulse Ox 96% on R/A; ha1 23:44 BP 130 / 56; Pulse 65; Resp 16 S; Pulse Ox 96% on R/A; ha1 21:08 Body Mass Index 23.54 (47.63 kg, 142.24 cm) tl4 21:08 Pain Scale: Adult tl4 ED Course: 20:37 Patient arrived in ED. mr 20:37 Robyn Chan DO is Private Physician. mr 20:42 Eliecer Aguilar MD is Attending Physician. sp4 21:10 Triage completed. tl4 21:12 Arm band placed on right wrist. tl4 21:12 Patient has correct armband on for positive identification. Placed in gown. Bed in low ha1 position. Call light in reach. Side rails up X 1. Adult w/ patient. 21:20 Missed attempt(s): 22 gauge in left antecubital area. Bleeding controlled, band aid ha1 applied, catheter tip intact. 21:40 Missed attempt(s): 22 gauge in right antecubital area. Bleeding controlled, band aid ha1 applied, catheter tip intact. 21:55 Shana Mathis RN is Primary Nurse. ha1 21:55 Basic Metabolic Panel Sent. ha1 21:55 CBC with Diff Sent. ha1 21:55 LFT's Sent. ha1 21:55 Magnesium Sent. ha1 21:55 NT PRO-BNP Sent. ha1 21:55 PT-INR Sent. ha1 21:55 Troponin HS Sent. ha1 21:55 No provider procedures requiring assistance completed. Inserted saline lock: 20 gauge ha1 in right antecubital area, using aseptic technique. insertion with ultrasound. 22:05 XRAY Chest (1 view) In Process Unspecified. EDMI 23:55 Robny Chan DO is Referral Physician. sp4 08/22 00:09 IV discontinued, intact, bleeding controlled, No redness/swelling at site. Pressure ha1 dressing applied. 00:10 Provided Education on: blood pressure management and medication administration . ha1 Administered Medications: 08/21 22:29 Drug: cloNIDine PO 0.1 mg PO once Route: PO; ha1 22:45 Follow up: Response: No adverse reaction; Marked relief of symptoms; Blood pressure is ha1 lowered 22:29 Drug: Losartan PO 50 mg PO once Route: PO; ha1 22:45 Follow up: Response: No adverse reaction; Marked relief of symptoms; Blood pressure is ha1 lowered Medication: 08/22 00:07 VIS not applicable for this client. ha1 Outcome: 08/21 23:56 Discharge ordered by . sp4 08/22 00:09 Discharged to home ambulatory, with family, [facility] Condition: stable Discharge instructions given to patient, family, Instructed on discharge instructions, follow up and referral plans. medication usage, Demonstrated understanding of instructions, follow-up care, medications, Prescriptions given X 1, 00:12 Patient left the ED. ha1 Signatures: Dispatcher [employer] [facility] BretMeena, Reg Reg mr Shana Mathis, RN RN ha1 Eliecer Aguilar MD MD sp4 Arben Dailey RN RN tl4
[2023-08-23 01:22] VITALS: BP 130/56; TEMP 98.2; O2SAT 96
--- NOTE | 2023-08-23 14:00 | EKG ---
Test Date: 2023-08-22 Test Time: 21:59:57 Soil Analyst: AMANDA MEASUREMENT RESULTS: Intervals: Rate: 66 [place]: 144 QRSD: 96 QT: 418 QTc: 438 [place]: P: 56 IL: 144 QRS: 37 T: 41 INTERPRETIVE STATEMENTS: Sinus rhythm with marked sinus arrhythmia Otherwise normal ECG No previous ECG available for comparison Electronically Signed On 08-23-23 13:59:10 CDT by Otto Welsh
== END 2023-08-23 00:12 | disposition home or self-care (01) ==
LOC: ER 20:34
DX: I16.0 Hypertensive urgency (principal); G30.9 Alzheimer's disease, unspecified; F02.80 Dementia in other diseases classified elsewhere, unspecified severity, without behavioral disturbance, psychotic disturbance, mood disturbance, and anxiety
CPT/HCPCS: 36415; 71045; 80048; 80076; 83735; 83880; 84484; 85025; 85610; 93005; 99284

== ENCOUNTER 2024-06-30 12:21 | Emergency (ER) | payer OTHER ==
--- NOTE | 2024-06-30 13:14 | RAD REPORT ---
EXAMINATION: ONE VIEW CHEST XR CLINICAL INDICATION: PAIN TECHNIQUE: Frontal chest projection is submitted. Examination is limited by patient positioning and t echnique. 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 Elevated right hemidiaphragm is present. The heart is upper limit of normal in size. Right-sided calcified chest wall lesion unchanged. No displaced fractures are present. IMPRESSION: No acute intrathoracic abnormalities.
--- NOTE | 2024-06-30 13:26 | RAD REPORT ---
EXAM: CT brain without contrast HISTORY: Pain;Trauma COMPARISON: None TECHNIQUE: Multiple contiguous axial images were obtained and a CT of the brain without contrast. Sag ittal and coronal reformats were performed. One or more of the following dose reduction techniques were used: Automated exposure control, adjust ment of the mA and/or kV according to patient size, and/or iterative reconstruction. FINDINGS: No evidence of hydrocephalus, intracranial hemorrhage, or extra-axial fluid collection. Mild brain atrophy with mild periventricular and deep white matter chronic microvascular ischemic ch anges present. No evidence of midline shift or areas of brain edema. The calvarium is intact. The visualized paranasal sinuses and mastoid air cells are essentially clear . IMPRESSION: No evidence of acute intracranial abnormality. EXAM: CT of the cervical spine without contrast HISTORY: Neck pain, injury Pain;Trauma TECHNIQUE: Multiple contiguous axial images were obtained in a CT of the cervical spine without contr ast. Sagittal and coronal reformats were performed. FINDINGS: Advanced osteopenia. There is a fracture somewhat obliquely oriented to the body of C2. Marsha dence of prior fusion C3-5.. Mild multilevel degenerative changes. [id number] prevertebral soft tissue swelling. The lung apices are unremarkable. IMPRESSION: Obliquely oriented minimally displaced fracture involving the C2 body. The findings were communicated with Dr. Mujica at 06/30/2024 1:23 PM by telephone.
[2024-06-30 13:57] LABS: Absolute Lymphocytes (CBC) 0.6 K/uL (0.7-4.9); Absolute Monocytes 0.4 K/uL (0.1-1.3); Basophils % 0.3 % (0-1.3); Eosinophils % 0.1 % (0-4.4); Hematocrit 34.9 % (36.0-45.0); Hemoglobin 11.7 g/dL (12.0-15.0); Lymphocytes % 4.4 % (15.3-44.8); MCH 32.1 pg (27.0-35.0); MCHC 33.5 g/dL (32.0-36.0); MCV 95.9 fL (80-100); MPV 8.7 fL (7.6-11.3); Monocytes % 3.3 % (3.3-12.3); Neutrophils % 91.9 % (41.7-73.7); Nucleated Red Blood Cells % 0.1 % (0-0); Platelets 195 thou/uL (152-406); RBC Red Blood Cell Count 3.65 M/uL (3.86-4.86); Red Cell Distribution Width 13.5 % (12.1-15.2)
[2024-06-30 14:13] LABS: Specific Gravity 1.016 (1.005-1.030); Sqamous Epithelial <5 /HPF (None Seen); Urine Bacteria None Seen /HPF (<20); Urine Bilirubin NEGATIVE (Negative); Urine Blood Trace (Negative); Urine Clarity Clear (Clear); Urine Color Light-Yellow (Yellow); Urine Culture Reflex Order NOT NEEDED; Urine Glucose NEGATIVE (Negative); Urine Ketones NEGATIVE (Negative); Urine Microscopic Reflex YN ORDER UMIC; Urine Mucus Slight /HPF (None Seen); Urine Nitrite NEGATIVE (Negative); Urine Protein TRACE (Negative); Urine RBC <5 /HPF (None Seen); Urine Urobilinogen Normal (Normal); Urine WBC <5 /HPF (<5); Urine pH 5.5 (5.0-7.0)
[2024-06-30 14:15] LABS: Anion Gap 11.4 mEq/L (5.0-15.0); Potassium 4.4 mEq/L (3.5-5.1); Troponin High Sensitivity 24.6 pg/mL (<58.9)
[2024-06-30 15:18] LABS: Blood Morphology Comment NOT SEEN (NOT SEEN); Platelet Estimate ADEQ; White Blood Cell Scan OK (OK)
--- NOTE | 2024-06-30 17:10 | EDPHYS ---
Physician Documentation [facility] Name: Rosita Mills Age: 89 yrs Sex: Female : 1935 Arrival Date: 06/30/2024 Time: 12:21 Bed 14 Private MD: ED Physician Ha Arvizu HPI: 06/30 16:17 This 89 yrs old Female presents to ER via Wheelchair with complaints of Fall dr5 Injury. 16:17 Details of fall: The patient fell from a height. Patient is an 89-year-old female with dr5 history of CHF, carpal tunnel and cataracts coming in with a fall that occurred last night at unknown time. Patient reports that she did not lose consciousness and has not had any nausea or vomiting. Patient reports that she was stepping up on a stool to get back in bed, slipped, and hit the back of her head.. Historical: - Allergies: 12:47 No Known Allergies; ll1 - PMHx: 12:47 carpal tunnel; Deaf in right ear; Cataract; ll1 - PSHx: 12:47 carpal tunnel; cataract; Craniotomy; rotator cuff; Tonsillectomy; ll1 - Immunization history:: Adult Immunizations up to date. - Infectious Disease History:: Denies. - Social history:: Smoking status: Patient/guardian denies using tobacco. ROS: 16:22 Constitutional: as per hpi dr5 Exam: 16:22 Constitutional: This is a well developed, well nourished patient who is awake, alert, dr5 and in no acute distress. 16:22 Eyes: Pupils equal round and reactive to light, extra-ocular motions intact. Lids and lashes normal. Conjunctiva and sclera are non-icteric and not injected. Cornea within normal limits. Periorbital areas with no swelling, redness, or edema. ENT: Nares patent. No nasal discharge, no septal abnormalities noted. Tympanic membranes are normal and external auditory canals are clear. Oropharynx with no redness, swelling, or masses, exudates, or evidence of obstruction, uvula midline. Mucous membranes moist. Neck: Trachea midline, no thyromegaly or masses palpated, and no cervical lymphadenopathy. Supple, full range of motion without nuchal rigidity, or vertebral point tenderness. No Meningismus. Chest/axilla: Normal chest wall appearance and motion. Nontender with no deformity. No lesions are appreciated. Respiratory: Lungs have equal breath sounds bilaterally, clear to auscultation. No rales, rhonchi or wheezes noted. No increased work of breathing, no retractions or nasal flaring. Back: No spinal tenderness. No costovertebral tenderness. Full range of motion. Skin: Warm, dry with normal turgor. Normal color with no rashes, no lesions, and no evidence of cellulitis. Neuro: Awake and alert, GCS 15, oriented to person, place, time, and situation. Cranial nerves II-XII grossly intact. Motor strength 5/5 in all extremities. Sensory grossly intact. Cerebellar exam normal. Normal gait. 16:22 Head/face: Noted is swelling, tenderness, that is mild, of the right occipital area, Vital Signs: 12:46 BP 127 / 94; Pulse 80; Resp 17; Temp 97.4; Pulse Ox 95% ; Weight 47.63 kg; Height 4 ft. ll1 8 in. ; Pain 6/10; 14:00 BP 136 / 62; Pulse 84; Resp 18; Pulse Ox 93% ; me1 15:00 BP 122 / 64; Pulse 77; Resp 18; Pulse Ox 93% on R/A; me1 16:00 BP 120 / 90; Pulse 78; Resp 19; Pulse Ox 92% ; me1 17:00 BP 138 / 63; Pulse 86; Resp 19; Pulse Ox 92% ; me1 18:00 BP 137 / 69; Pulse 81; Resp 21; Pulse Ox 94% ; me1 19:00 BP 117 / 67; Pulse 83; Resp 20; Pulse Ox 92% ; me1 19:42 Pain 3/10; me1 20:00 BP 118 / 58; Pulse 76; Resp 17; Temp 98.4; Pulse Ox 99% ; me1 12:46 Body Mass Index 23.54 (47.63 kg, 142.24 cm) ll1 12:46 Pain Scale: Adult ll1 19:42 Pain Scale: Adult me1 MDM: 12:26 Medical Screening Exam initiated dr5 16:22 Differential diagnosis: abrasion, closed head injury, contusion, fracture. Data dr5 reviewed: vital signs, nurses notes. Consideration of Admission/Observation Patient was admitted/placed on observation. Historians other than the Patient: Daughter in law. Care significantly affected by the following chronic conditions: Congestive Heart Failure. Care significantly affected by the following Social Determinants of Health: Poor access to healthcare and/or lack of insurance, Poor access to transportation, Problems related to employment. Counseling: I had a detailed discussion with the patient and/or guardian regarding the historical points, exam findings, and any diagnostic results supporting the discharge/admit diagnosis, the presence of at least one elevated blood pressure reading (>120/80) during this emergency department visit, radiology results, the need to transfer to another facility, for higher level of care, [facility] does not immediately have the required specialist, Trauma. 17:10 ED course: Patient placed in c-collar. Report given to [facility] and Dr. Beth excepted dr5 patient for transfer.. 06/30 12:51 Order name: Basic Metabolic Panel; Complete Time: 14:16 dr5 06/30 12:51 Order name: CBC with Diff; Complete Time: 15:51 [facility] 06/30 12:51 Order name: NT PRO-BNP; Complete Time: 14:16 06/30 12:51 Order name: Troponin HS; Complete Time: 14:16 dr5 06/30 12:51 Order name: Urinalysis w/ reflexes; Complete Time: 14:15 06/30 15:18 Order name: CBC Smear Scan; Complete Time: 15:51 [facility] 06/30 12:51 Order name: XRAY Chest (1 view); Complete Time: 13:16 dr5 06/30 12:51 Order name: CT Head C Spine; Complete Time: 13:34 dr5 06/30 12:51 Order name: Cardiac monitoring; Complete Time: 17:06 06/30 12:51 Order name: EKG - Nurse/Tech; Complete Time: 17:06 dr5 06/30 12:51 Order name: IV Saline Lock; Complete Time: 13:43 dr5 06/30 12:51 Order name: Labs collected and sent; Complete Time: 13:43 06/30 12:51 Order name: O2 Per Protocol; Complete Time: 13:43 [facility] 06/30 12:51 Order name: O2 Sat Monitoring; Complete Time: 13:43 [facility] 06/30 14:10 Order name: C-Collar; Complete Time: 17:06 dr5 EC:13 Rate is 81 beats/min. Rhythm is regular. QRS [place] is Normal. [place] interval is normal at dr5 156 msec. QRS interval is normal at 90 msec. QT interval is normal at 396 msec. Administered Medications: 19:12 Drug: Ondansetron IVP 4 mg IVP once; over 2 minutes Route: IVP; Site: left antecubital; me1 19:42 Follow up: Response: No adverse reaction; Nausea is decreased me1 19:12 Drug: morphine IVP or IV 2 mg IVP once over 4 mins Route: IVP; Infused Over: 4 mins; me1 Site: left antecubital; 19:42 Follow up: Pain 3/10 Adult; Response: No adverse reaction; Pain is decreased me1 Disposition: 17:35 I was immediately available on-site in the Emergency Department for consultation in the ms3 care of the patient. Disposition Summary: 06/30/24 17:09 Transfer Ordered Notes: Transfer Location: [facility] dr5 Reason: Higher level of care dr5 Condition: Stable dr5 Problem: new dr5 Symptoms: are unchanged dr5 Accepting Physician: Dr. Beth(06/30/24 20:23) me1 Diagnosis - Other displaced fracture of second cervical vertebra, initial encounter for closed dr5 fracture Forms: - Medication Reconciliation Form dr5 - SBAR form dr5 Signatures: Dispatcher [employer] EDMS Rajendra Mahoney RN RN ll1 Ha Arvizu DO DO ms3 Halie Hagan RN RN me1 Davonte Alan FNP-C KINESIOLOGY PROFESSOR-Cdr5 Corrections: (The following items were deleted from the chart) 12:51 12:51 BASIC METABOLIC PANEL+C.LAB.BRZ ordered. EDMS EDMS 12:51 12:51 CBC+H.LAB.BRZ ordered. EDMS EDMS 12:51 12:51 PROBNP+C.LAB.BRZ ordered. EDMS EDMS 12:51 12:51 Troponin High Sensitivity+C.LAB.BRZ ordered. EDMS EDMS 12:51 12:51 Urinalysis+U.LAB.BRZ ordered. EDMS EDMS 12:51 12:51 Chest Single View+RAD.RAD.BRZ ordered. EDMS EDMS 12:52 12:52 Head C Spine MPR Wo Con+CT.RAD.BRZ ordered. EDMS EDMS 16:22 16:17 Patient is an 89-year-old female with history of carpal tunnel and cataracts dr5 coming in with a fall that occurred last night at unknown time. Patient reports that she did not lose consciousness and has not had any nausea or vomiting. Patient reports that she was stepping up on a stool to get back in bed, slipped, and hit the back of her head.. dr5 20:23 17:09 Dr. Beth dr5 me1
--- NOTE | 2024-06-30 17:10 | ER ---
Nurse's Notes [facility] Name: Rosita Mills Age: 89 yrs Sex: Female : 1935 Arrival Date: 06/30/2024 Time: 12:21 Bed 14 Private MD: Diagnosis: Other displaced fracture of second cervical vertebra, initial encounter for closed fracture Presentation: 06/30 12:46 Chief complaint: Patient states: Fell last night on uneven surface. Head and neck pain ll1 since. Coronavirus screen: Client denies travel out of the [place] in the last 14 days. At this time, the client does not indicate any symptoms associated with coronavirus-19. Ebola Screen: Patient denies travel to an Ebola-affected area in the 21 days before illness onset. Initial Sepsis Screen: Does the patient meet any 2 criteria? No. Patient's initial sepsis screen is negative. Does the patient have a suspected source of infection? No. Patient's initial sepsis screen is negative. Risk Assessment: Do you want to hurt yourself or someone else? Patient reports no desire to harm self or others. Onset of symptoms was June 30, 2024. 12:46 Method Of Arrival: Wheelchair ll1 12:46 Acuity: SID 3 ll1 Triage Assessment: 12:48 General: Appears in no apparent distress. Behavior is calm, cooperative, appropriate ll1 for age. Pain: Complains of pain in head Pain radiates to neck. Neuro: Reports headache neck pain. Historical: - Allergies: 12:47 No Known Allergies; ll1 - PMHx: 12:47 carpal tunnel; Deaf in right ear; Cataract; ll1 - PSHx: 12:47 carpal tunnel; cataract; Craniotomy; rotator cuff; Tonsillectomy; ll1 - Immunization history:: Adult Immunizations up to date. - Infectious Disease History:: Denies. - Social history:: Smoking status: Patient/guardian denies using tobacco. Screenin:30 [facility] ED Fall Risk Assessment (Adult) History of falling in the last 3 months, me1 including since admission Yes- single mechanical fall (1 pt) Confusion or Disorientation No (0 pts) Intoxicated or Sedated No (0 pts) Impaired Gait Yes (1 pt) Mobility Assist Device Used Yes (1 pt) Altered Elimination No (0 pt) Score/Fall Risk Level 0 - 2 = Low Risk Maintained a safe environment, Provided non-skid footwear, Hourly rounding (assess needs \T\ fall precautionary measures) done. Abuse screen: Denies threats or abuse. Nutritional screening: No deficits noted. Tuberculosis screening: No symptoms or risk factors identified. Assessment: 13:30 General: Appears uncomfortable, slender, well groomed, well developed, well nourished, me1 Behavior is calm, cooperative, appropriate for age, Reports Fell last night on uneven surface. Head and neck pain since. Pain: Complains of pain in head and back of neck Pain does not radiate. Pain currently is 7 out of 10 on a pain scale. Quality of pain is described as sharp, Pain began suddenly, 1 day ago. Is continuous. Neuro: Level of Consciousness is awake, alert, obeys commands, Oriented to person, place, time, situation, Appropriate for age. Cardiovascular: Patient's skin is warm and dry. Respiratory: Airway is patent Respiratory effort is even, unlabored, Respiratory pattern is regular, symmetrical. GI: No signs and/or symptoms were reported involving the gastrointestinal system. : No signs and/or symptoms were reported regarding the genitourinary system. EENT: No signs and/or symptoms were reported regarding the EENT system. Derm: Skin is intact, is healthy with good turgor, Skin is pink, warm \T\ dry. Musculoskeletal: Reports pain in head and back of neck. Injury Description: Fell last night on uneven surface. Head and neck pain since. 17:58 General: Report called to [place] [facility] to T[facility] Corral. me1 Vital Signs: 12:46 BP 127 / 94; Pulse 80; Resp 17; Temp 97.4; Pulse Ox 95% ; Weight 47.63 kg; Height 4 ft. ll1 8 in. ; Pain 6/10; 14:00 BP 136 / 62; Pulse 84; Resp 18; Pulse Ox 93% ; me1 15:00 BP 122 / 64; Pulse 77; Resp 18; Pulse Ox 93% on R/A; me1 16:00 BP 120 / 90; Pulse 78; Resp 19; Pulse Ox 92% ; me1 17:00 BP 138 / 63; Pulse 86; Resp 19; Pulse Ox 92% ; me1 18:00 BP 137 / 69; Pulse 81; Resp 21; Pulse Ox 94% ; me1 19:00 BP 117 / 67; Pulse 83; Resp 20; Pulse Ox 92% ; me1 19:42 Pain 3/10; me1 20:00 BP 118 / 58; Pulse 76; Resp 17; Temp 98.4; Pulse Ox 99% ; me1 12:46 Body Mass Index 23.54 (47.63 kg, 142.24 cm) ll1 12:46 Pain Scale: Adult ll1 19:42 Pain Scale: Adult ut1 ED Course: 12:25 Patient arrived in ED. cj3 12:26 Davonte Alan FNP-C [facility]5 12:26 Ha Arvizu DO is Attending Physician. dr5 12:46 Arm band placed on. ll1 12:47 Triage completed. ll1 13:11 XRAY Chest (1 view) In Process Unspecified. EDMS 13:13 CT Head C Spine In Process Unspecified. EDMS 13:29 Halie Hagan, RN is Primary Nurse. me1 13:30 Patient has correct armband on for positive identification. Bed in low position. Call [facility] light in reach. Side rails up X 1. Provided Education on: POC. Verbalized understanding.. Client placed on continuous cardiac and pulse oximetry monitoring. NIBP monitoring applied. brush holder assembler on. Pulse ox on. NIBP on. 13:30 No provider procedures requiring assistance completed. ut1 13:43 Basic Metabolic Panel Sent. me1 13:43 CBC with Diff Sent. ut1 13:43 Troponin HS Sent. ut1 13:43 Initial lab(s) drawn, by ut, sent to lab. Inserted saline lock: 22 gauge in left [facility] antecubital area, using aseptic technique. 16:43 initiated transfer to [facility]. bd 16:53 pt accepted in transfer to [facility] ER by dr dubois admin approval given by maxine Zapata 17:06 EKG done, by ED staff, reviewed by Davonte NO. ut1 18:09 Patient transferred, IV remains in place. [facility] Administered Medications: 19:12 Drug: Ondansetron IVP 4 mg IVP once; over 2 minutes Route: IVP; Site: left antecubital; [facility] 19:42 Follow up: Response: No adverse reaction; Nausea is decreased [facility] 19:12 Drug: morphine IVP or IV 2 mg IVP once over 4 mins Route: IVP; Infused Over: 4 mins; me1 Site: left antecubital; 19:42 Follow up: Pain 3/10 Adult; Response: No adverse reaction; Pain is decreased me1 Medication: 13:30 VIS not applicable for this client. me1 Outcome: 17:09 ER care complete, transfer ordered by . dr5 18:09 Transferred by ground EMS to [facility], Note: report called to TARA Corral me1 18:09 Condition: stable 18:09 Instructed on the need for transfer, 20:23 Patient left the ED. me1 Signatures: Dispatcher [employer] EDMS Belkys Dejesus Lynsay, RN RN 1 Halie Hagan RN RN me1 Davonte Alan, NURSERY SCHOOL TEACHER-C NURSERY SCHOOL TEACHER-Cdr5 Angelica Min cj3 Corrections: (The following items were deleted from the chart) 13:29 12:46 Chief complaint: Patient states: Fell last night on uneven surface. Head and neck me1 pain since. 1
[2024-06-30] MEDS ORDERED: MORPHINE 2 MG/ML SYR ONE (19:02)
[2024-06-30] MEDS ORDERED: ONDANSETRON 4 MG/2 ML VIAL ONE (19:02)
[2024-06-30 20:36] VITALS: BP 118/58; TEMP 98.4; O2SAT 99
--- NOTE | 2024-07-02 12:36 | EKG ---
Test Date: 2024-06-30 Test Time: 14:13:53 Casting Finisher: ELLE MEASUREMENT RESULTS: Intervals: Rate: 81 PA: 156 QRSD: 90 QT: 396 QTc: 460 [place]: P: 59 PA: 156 QRS: 27 T: 44 INTERPRETIVE STATEMENTS: Normal sinus rhythm Normal ECG Compared to ECG 08/22/2023 21:59:57 Sinus arrhythmia no longer present Electronically Signed On 07-02-24 12:27:11 CDT by Jason Willard
== END 2024-06-30 20:23 | disposition short-term general hospital (02) ==
LOC: ER 12:21
DX: S12.190A Other displaced fracture of second cervical vertebra, initial encounter for closed fracture (principal); W18.30XA Fall on same level, unspecified, initial encounter
CPT/HCPCS: 93005; 85025; 81001; 80048; 36415; 84484; 83880; 70450; 72125; 71045; 96375; 96374; 99285; J2270; J2405

== ENCOUNTER 2024-09-05 13:18 | Observation (INO) | payer OTHER ==
--- OUTSIDE RECORDS SUMMARY | 2024-09-05 13:23 | XMS REPORT | Continuity of Care Document ---
Author Name Unknown Address [address] [facility] [place] [address] [facility] Address [address] [place] [address] Care Team Providers Care Video Editing Internship Name Role Phone DineroBonnieRobyn Primary Care Physician [phone] Kirit HAYES, Isaak Arias Attending Clinician [phone], Opid Mc Xr Attending Clinician Unavailable 1, Opid Mc Xr/Fl Attending Clinician Unavailable Laurie HAYES, Elsy Doss Attending Clinician [phone] Smooth HAYES, Candice Gross Attending Clinician [phone] Lian HAYES, Isaak Lawson Attending C linician Carlos HAYES, Yesica Garcia Attending Clinician + [phone] Stewart HAYES, Frankie Arellano Attending Clinician Sukumar HAYES, Missy Mccoy Attending Clinician [phone] Barry HAYES, Candice Walton Attending Clinician + [phone] Omega Kulkarni MD Attending Clinician [phone] Alex HAYES, Brady Zelaya Attending Clinician + [phone] Forrest Haro MD Attending Clinician YESICA GONZALEZ Attending Clinician Yesica Rios MD Admitting Clinician [phone] YESICA GONZALEZ Admitting Clinician Harman gatica Payers Payer Name Policy Type Policy Number Effective Date Expirati on Date Source MEDICARE PART A AND B Medicare [id number] 2024 00:00:00 FOR LIFE Other [id number] 2024 00:00:00 [employer] LIFE [id number] 2024 00:00:00 MEDICARE PART A AND B [id number] 2001 00:00:00 Problems Condition Name Condition Details Condition Category Status Onset Date Resolution Date Last Treatment Date Treating Clinician Comments Source Impaired cognition Impaired Cognition Problem Active 08-14 00:00: 00 [facility] Peripheral neuropathi c pain Peripheral Neuropathi c Pain Problem Active 08-01 00:00: 00 [facility] Anemia of chronic disease Anemia of Chronic Disease Problem Active 07-29 00:00: 00 [facility] Alzheimer' s disease Alzheimer' s Disease Problem Active 07-21 00:00: 00 [facility] Bilateral hearing loss Bilateral Hearing Loss Problem Active 07-21 00:00: 00 [facility] 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 Problem Active 07-21 00:00: 00 [facility] Cerebral atheroscle rosis Cerebral Atheroscle rosis Problem Active 07-21 00:00: 00 [facility] 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 Problem Active 07-21 00:00: 00 [facility] Incontinen ce Incontinen ce Problem Active 07-21 00:00: 00 [facility] Closed fracture of second cervical vertebra Closed Fracture of Second Cervical Vertebra Problem Active - 00:00: 00 [facility] Compressio n fracture of thoracic spine Compressio n Fracture of Thoracic Spine Problem Active 07-21 00:00: 00 [facility] Chronic kidney disease stage 3A Chronic Kidney Disease Stage 3a Problem Active 07-21 00:00: 00 [facility] Type III fracture of odontoid process of axis Type III Fracture of Odontoid Process of Artemus Problem Active 07-21 00:00: 00 [facility] Chronic kidney disease stage 3B Chronic Kidney Disease Stage 3B Problem Active 07-21 00:00: 00 [facility] 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 Problem Active 07-21 00:00: 00 [facility] Mixed hyperlipid emia Mixed Hyperlipid emia Problem Active 07-21 00:00: 00 [facility] Secondary immune deficiency disorder Secondary Immune Deficiency Disorder Problem Active 07-21 00:00: 00 [facility] Senile purpura Senile Purpura Problem Active 07-21 00:00: 00 [facility] Hypercoagu lability state Hypercoagu lability State Problem Active 07-21 00:00: 00 [facility] Itching Itching Disease Active 07-07 00:00: 00 [facility] Ground-lev el fall Ground-lev el fall Disease Active 07-02 00:00: 00 [facility] Alzheimer' s dementia Alzheimer' s dementia Disease Active 07-02 00:00: 00 Rodney Johnson Essential hypertensi on Essential hypertensi on Disease Active 07-02 00:00: 00 Rodney Johnson COPD (chronic obstructiv e pulmonary disease) COPD (chronic obstructiv e pulmonary disease) Disease Active 07-02 00:00: 00 Rodney Johnson Mixed hyperlipid emia Mixed hyperlipid emia Disease Active 07-02 00:00: 00 Rodney Johnson Compressio n fracture of T3 vertebra Compressio n fracture of T3 vertebra Disease Active 07-02 00:00: 00 [facility] Johnson Traumatic subdural hematoma Traumatic subdural hematoma Disease Active 07-01 00:00: 00 Rodney Johnson Type III fracture of odontoid process Type III fracture of odontoid process Disease Active 07-01 00:00: 00 [facility] Closed nondisplac ed fracture of second cervical vertebra, unspecifie d fracture morphology , initial encounter ([facility]) Closed nondisplac ed fracture of second cervical vertebra, unspecifie d fracture morphology , initial encounter ([facility]) Disease Active 07-01 00:00: 00 [facility] Social History Social Habit Start Date Stop Date Quantity Comments Source ASSERTION Possible [facility] Sexual orientation [facility] Gender identity [facility] Tobacco use and exposure 2024-08-28 00:00:00 2024-08-28 00:00:00 Smokeless tobacco non-user [facility] Alcoholic beverage intake 2024-08-28 00:00:00 2024-08-28 00:00:00 Lifetime non-drinker (finding) [facility] History of Social function 2024-07-04 00:00:00 2024-07-04 00:00:00 [facility] Sex 2024-06-30 16:54:16 2024-06-30 16:54:16 Female (finding) [facility] Sex assigned at 1935 00:00:00 1935 00:00:00 F [facility] Smoking Status Start Date Stop Date Source Never smoked tobacco [facility] th Medications Ordered Medication Name Filled Medication Name Start Date Stop Date Current Medication? Ordering Clinician Indication Dosage Frequency Signature (SIG) Comments Components Source Keppra 100 MG/ML solution 08-28 11:42: 43 Yes 5mL Q12H 5 mL every 12 (twelve) hours. [facility] oxyCODONE (Roxicodone ) 5 MG immediate release tablet 08-28 11:42: 43 Yes Q6H every 6 (six) hours. [facility] traZODone (Desyrel) 100 MG tablet 08-28 11:42: 43 Yes 100mg Take 100 mg by mouth. [facility] acetaminoph en (Tylenol) 325 MG tablet 07-13 00:00: 00 Yes Q8H Take by mouth every 8 (eight) hours. [facility] levETIRAcet am 500 MG/5ML solution 07-12 00:00: 00 Yes Q12H Take by mouth every 12 (twelve) hours. [facility] escitalopra m (Lexapro) 10 MG tablet 07-09 00:00: 00 Yes Take by mouth 1 (one) time each day at the same time. [facility] Cozaar 50 MG tablet 07-09 00:00: 00 Yes Take by mouth 1 (one) time each day at the same time. [facility] Namzaric 7-10 MG capsule sustained-r elease 24 hr 07-09 00:00: 00 Yes Namzaric 7 mg-10 mg capsule sprinkle,e xtended release Take 1 capsule by oral route for 14 days. [facility] montelukast (Singulair) 10 MG tablet 07-09 00:00: 00 Yes Take by mouth. [facility] omeprazole (PriLOSEC) [address] capsule 07-09 00:00: 00 Yes Take by mouth 1 (one) time each day at the same time. [facility] pregabalin (Lyrica) 100 MG capsule 07-09 00:00: 00 Yes pregabalin 100 mg capsule Take 1 capsule every day by oral route at bedtime for 14 days. [facility] simvastatin (Zocor) 10 MG tablet 07-09 00:00: 00 Yes Take by mouth. [facility] Memantine HCl-Donepez il HCl 7-10 MG capsule sustained-r elease 24 hr Memantine HCl-Donepez il HCl 7-10 MG capsule sustained-r elease 24 hr 07-09 00:00: 00 08-08 23:59 :00 Yes 1273 1{capsu le} QD Take 1 capsule by mouth 1 time each day. Do not start before July 09, 2024. Rodney Mckeon Epic lidocaine 4 % patch patch lidocaine 4 % patch patch 07-09 00:00: 00 08-08 23:59 :00 No 1{patch } QD Apply 1 patch over 12 hours topically 1 time each day. [facility]ney Ramonann Epic polyethylen e glycol, PEG, 3350 (Miralax) 17 g packet polyethylen e glycol, PEG, 3350 (Miralax) 17 g packet 07-09 00:00: 00 07-12 23:59 :00 No 17g QD Take 17 g by mouth 1 time each day for 3 days. Rodney Johnson traZODone (Desyrel) 100 MG tablet traZODone (Desyrel) 100 MG tablet 07-08 15:53: 53 07-08 00:00 :00 No 100mg Take 100 mg by mouth at bedtime. [facility]ney Johnson amLODIPine- olmesartan (Shaneka) 5-20 MG tablet amLODIPine- olmesartan (Shaneka) 5-20 MG tablet 07-08 15:53: 53 07-08 00:00 :00 No 87 1{tbl} QD Take 1 tablet by mouth 1 time each day. 10/ 40 mg Rodney Johnson simvastatin (Zocor) 10 MG tablet simvastatin (Zocor) 10 MG tablet 07-08 15:53: 51 Yes 10mg Take 10 mg by mouth at bedtime. Rodney Johnson omeprazole (PriLOSEC) [address] capsule omeprazole (PriLOSEC) [address] capsule 07-08 15:53: 51 Yes 40mg Take 40 mg by mouth in the morning. Take before meals. Do not crush or chew. Rodney Johnson cetirizine (ZyrTEC) 10 MG tablet cetirizine (ZyrTEC) 10 MG tablet 07-08 15:53: 51 Yes 10mg Take 10 mg by mouth if needed for allergies. Rodney Johnson cetirizine (ZyrTEC) 10 MG tablet 07-08 00:00: 00 Yes QD 1 (one) time each day. [facility] pregabalin (Lyrica) 100 MG capsule pregabalin (Lyrica) 100 MG capsule 07-08 00:00: 00 08-07 23:59 :00 Yes 64100 100mg QD Take 1 capsule by mouth 1 time each day. Rodney Jonhson acetaminoph en (Tylenol) 500 MG tablet acetaminoph en (Tylenol) 500 MG tablet 07-08 00:00: 00 07-18 23:59 :00 No 1000mg Q8H Take 2 tablets by mouth every 8 hours if needed for mild pain (1-3) for up to 10 days. Rodney Johnson oxyCODONE (Roxicodone ) 5 MG immediate release tablet oxyCODONE (Roxicodone ) 5 MG immediate release tablet 07-08 00:00: 00 07-15 23:59 :00 No 2318 5mg Q4H Take 1 tablet by mouth every 4 hours if needed for severe pain (7-10) (Pain score 7-10) for up to 7 days. Rodney Johnson levETIRAcet am (Keppra) 500 MG tablet levETIRAcet am (Keppra) 500 MG tablet 07-08 00:00: 00 07-09 23:59 :00 Yes 9 500mg Q.5D Take 1 tablet by mouth in the morning and 1 tablet before bedtime. Do all this for 1 dose. Rodney Johnson calamine-zi nc oxide lotion calamine-zi nc oxide lotion 07-07 11:06: 02 Yes Q.5D Topical, 2 times daily PRN, irritation , itching, Starting on Sun07/07/24 at 1106, to affected area around the neck brace Rodney Johnson levETIRAcet am (Keppra) tablet 500 mg levETIRAcet am (Keppra) tablet 500 mg 07-04 21:00: 00 07-09 08:59 :00 No 500mg Q.5D 500 mg, Oral, Every 12 hours scheduled, First dose (after last modificati on) on Sun07/04/24 at 2100, For 9 doses Rodney Johnson Ensure Enlive liquid 1 Container Ensure Enlive liquid 1 Container 07-04 13:00: 00 Yes 1{conta iner} 1 Container, Oral, 3 times daily with meals, First dose on Sun07/04/24 at 1300, Chocolate flavor only Rodney Johnson Memantine HCl-Donepez il HCl 7-10 MG capsule sustained-r elease 24 hr 1 capsule Memantine HCl-Donepez il HCl 7-10 MG capsule sustained-r elease 24 hr 1 capsule 07-03 07:00: 00 Yes 1{capsu le} QD 1 capsule, Oral, Daily, First dose (after last reorder) on Sun07/03/24 at 0700, Patient Own Medication Rodney Johnson oxyCODONE (Roxicodone ) immediate release tablet 5 mg oxyCODONE (Roxicodone ) immediate release tablet 5 mg 07-02 20:40: 00 07-02 21:40 :00 No 5mg 5 mg, Oral, Once, On Sun07/02/24 at 2040, For 1 dose Rodney Johnson ipratropium -albuterol (Duo-Neb) 0.5-2.5 mg/3 mL nebulizer solution 3 mL ipratropium -albuterol (Duo-Neb) 0.5-2.5 mg/3 mL nebulizer solution 3 mL 07-02 10:10: 39 Yes 3mL Q6H 3 mL, Nebulizati on, Every 6 hours PRN, wheezing, shortness of breath, Starting on Sun07/02/24 at 1010 Rodney Johnson oxyCODONE (Roxicodone ) immediate release tablet 5 mg oxyCODONE (Roxicodone ) immediate release tablet 5 mg 07-02 09:50: 06 Yes 5mg Q4H 5 mg, Oral, Every 4 hours PRN, severe pain (7-10), Pain score 7-10, Starting on Sun07/02/24 at 0950, Hold for sedation and call MD. Rodney Johnson oxyCODONE (Roxicodone ) solution 2.5 mg oxyCODONE (Roxicodone ) solution 2.5 mg 07-02 09:49: 57 Yes 2.5mg Q4H 2.5 mg, Oral, Every 4 hours PRN, moderate pain (4-6), Pain Score 4-6, Starting on Sun07/02/24 at 0949, Hold for sedation and call MD. Rodney Johnson escitalopra m (Lexapro) 10 MG tablet escitalopra m (Lexapro) 10 MG tablet 07-02 09:00: 00 Yes 10mg QD Take 10 mg by mouth 1 time each day. Rodney Johnson losartan (Cozaar) 50 MG tablet losartan (Cozaar) 50 MG tablet 07-02 09:00: 00 Yes 50mg QD Take 50 mg by mouth 1 time each day. Rodney Johnson polyethylen e glycol (PEG) 3350 (Miralax) packet 17 g polyethylen e glycol (PEG) 3350 (Miralax) packet 17 g 07-02 09:00: 00 Yes 17g QD 17 g, Oral, Daily, First dose on Sun07/02/24 at 0900, 17 grams of powder dissolved in 4 - 8 ounces of beverage. Hold for more than 1 loose stool in 24 hrs. Dissolve 17 g in 120 to 240 mL (4 to 8 ounces) of beverage. Rodney Johnson lidocaine 4 % patch 1 patch lidocaine 4 % patch 1 patch 07-02 09:00: 00 Yes 1{patch } QD 1 patch, Apply externally , Administer over 12 Hours, Daily, First dose on Sun07/02/24 at 0900, Apply to most painful incision. Apply for 12 hrs on, then 12 hrs off. Rodney Johnson montelukast (Singulair) 10 MG tablet montelukast (Singulair) 10 MG tablet 07-02 02:55: 00 Yes 10mg Take 10 mg by mouth at bedtime. Rodney Johnson simvastatin (Zocor) tablet 10 mg simvastatin (Zocor) tablet 10 mg 07-02 02:55: 00 Yes 10mg 10 mg, Oral, Nightly, First dose on Sun07/02/24 at 0255 Rodney Johnson mirabegron ER (Myrbetriq) 24 hr tablet 50 mg mirabegron ER (Myrbetriq) 24 hr tablet 50 mg 07-02 02:55: 00 07-08 00:00 :00 Yes 50mg 50 mg, Oral, Nightly, First dose on Sun07/02/24 at 0255, Patient Own Medication Do not crush, chew, or split., On hold since Sun07/04/2024 at 2123 until manually unheld Rodney Johnson ondansetron (Zofran) injection 4 mg ondansetron (Zofran) injection 4 mg 07-02 01:56: 37 Yes 4mg Q6H 4 mg, Intravenou s, Every 6 hours PRN, nausea, vomiting, Starting on Sun07/02/24 at 0156, Contact MD prior to administra tion if QTc > 450 Rodney Johnson oxyCODONE (Roxicodone ) immediate release tablet 5 mg oxyCODONE (Roxicodone ) immediate release tablet 5 mg 07-02 01:56: 29 07-02 09:50 :24 No 5mg Q8H 5 mg, Oral, Every 8 hours PRN, severe pain (7-10), Pain score 7-10, Starting on Sun07/02/24 at 015, Hold for sedation and call MD. Rodney Johnson acetaminoph en (Tylenol) tablet 1,000 mg acetaminoph en (Tylenol) tablet 1,000 mg 07-02 01:56: 01 Yes 1000mg Q8H 1,000 mg, Oral, Every 8 hours PRN, mild pain (1-3), Starting on Sun07/02/24 at 0156, Max acetaminop hen from all sources (geriatric ) = 3,250 mg in 24 hrs. Rodney Johnson naloxone (Narcan) injection 0.04 mg naloxone (Narcan) injection 0.04 mg 07-02 01:55: 43 Yes .04mg 0.04 mg, Intravenou s, As needed, opioid reversal, every 2 mins PRN for Narcotic Reversal, Starting on Sun07/02/24 at 0155, For 8 doses, Give up to 8 doses of 0.04 mg as needed to reverse over sedation. Keep available for immediate use. Call ordering physician STAT. (Dilute 0.4 mg/mL in 9 mL of saline) Rodney Mckoen Epic sodium chloride (NS) 0.9 % flush 10 mL sodium chloride (NS) 0.9 % flush 10 mL 07-02 01:55: 00 Yes 10mL Q.5D 10 mL, Intravenou s, Every 12 hours scheduled, First dose on Sun07/02/24 at 0155, Administer at least once every 12 hours Rodney Mckeon Epic sodium chloride (NS) 0.9 % flush 10 mL sodium chloride (NS) 0.9 % flush 10 mL 07-02 01:51: 39 Yes 10mL 10 mL, Intravenou s, As needed, line care, Line Flush, Starting on Sun07/02/24 at 0151 Rodney Mckeon Epic levETIRAcet am (Keppra) tablet 500 mg levETIRAcet am (Keppra) tablet 500 mg 07-02 01:30: 00 07-04 15:24 :09 No 500mg Q.5D 500 mg, Oral, 2 times daily, First dose on Sun07/02/24 at 0130 Rodney Mckeon Epic furosemide (Lasix) injection 20 mg furosemide (Lasix) injection 20 mg 07-01 17:10: 00 07-01 17:22 :00 No 20mg 20 mg, Intravenou s, Once, On Sun07/01/24 at 1710, For 1 dose Rodney Mckeon Epic sulfur hexafluorid e lipid-type A microsphere s (Lumason) 60.7-25 MG Injectable suspension 2 mL sulfur hexafluorid e lipid-type A microsphere s (Lumason) 60.7-25 MG Injectable suspension 2 mL 07-01 13:45: 03 07-01 13:34 :00 No 2mL 2 mL, Intravenou s, Once in imaging, Starting on Sun07/01/24 at 1345, For 1 dose, Reconstitu te with 5 mL of PF NS only using provided Mini-Rivas ; shake vigorously for 20 sec until a homogenous white milky suspension forms. Use immediatel y. May repeat once during procedure. Rodney Mckeon Epic levETIRAcet am (Keppra) injection 1,000 mg levETIRAcet am (Keppra) injection 1,000 mg 07-01 13:30: 00 Yes 1000mg 1,000 mg, Intravenou s, Once, On Sun07/01/24 at 1330, For 1 dose, Administer over 3 minutes IV push for doses less than 1500 mg. Rodney Mckeon Epic electrolyte solution pH 7.4 (Plasma-lyt e/Normosol/ Isolyte) infusion electrolyte solution pH 7.4 (Plasma-lyt e/Normosol/ Isolyte) infusion 07-01 08:45: 00 07-02 04:11 :46 No 50mL/h 50 mL/hr, Intravenou s, Continuous , Starting on Sun07/01/24 at 0845 Rodney Mckeon Epic ondansetron (Zofran) injection 4 mg ondansetron (Zofran) injection 4 mg 07-01 08:40: 00 07-01 08:56 :00 No 4mg 4 mg, Intravenou s, Once, On Sun07/01/24 at 0840, For 1 dose Rodney Mckeon Epic morphine PF injection 1 mg morphine PF injection 1 mg 07-01 08:40: 00 07-01 08:56 :00 No 1mg 1 mg, Intravenou s, Once, On Sun07/01/24 at 0840, For 1 dose, Administer IVP. Rodney Mckeon Epic acetaminoph en (Tylenol) tablet 1,000 mg acetaminoph en (Tylenol) tablet 1,000 mg 07-01 08:20: 00 07-01 08:27 :00 No 1000mg 1,000 mg, Oral, Once, On Sun07/01/24 at 0820, For 1 dose, Max acetaminop hen = 4000mg/day (4gm/day) Rodney Mckeon Epic iohexol (OMNIPaque) 350 MG/ML injection 85 mL iohexol (OMNIPaque) 350 MG/ML injection 85 mL 07-01 02:48: 47 07-01 02:48 :00 No 85mL 85 mL, Intravenou s, Once in imaging, Starting on Sun07/01/24 at 0248, For 1 dose Rodney Mckeon Epic acetaminoph en (Ofirmev) injection 650 mg acetaminoph en (Ofirmev) injection 650 mg 07-01 00:35: 00 07-01 02:19 :00 No 650mg 650 mg, Intravenou s, at 260 mL/hr, Administer over 15 Minutes, Once, On 3/18/25 at 0035, For 1 dose Memboo l Lilly [facility] amLODIPine (Norvasc) 5 MG tablet 09-06 00:00: 00 Yes 5mg QD Take 5 mg by mouth 1 (one) time each day. [facility] losartan 50 mg tablet Take 1 tablet every day by oral route. losartan 50 mg tablet Take 1 tablet every day by oral route. No 1 Q1D losartan 50 mg tablet Take 1 tablet every day by oral route. [facility] Medical Immunizations Ordered Immunization Name Filled Immunization Name Date Status Comments Source Influenza, injectable, quadrivalent 2024-04-02 00:00:00 Completed Vital Signs Vital Name Observation Time Observation Value Comments [facility] Systolic blood pressure 2024-08-28 16:43:00 101 mm[Hg] [facility] Diastolic blood pressure 2024-08-28 16:43:00 69 mm[Hg] [facility] Body height 2024-08-28 16:43:00 [facility] Body weight 2024-08-28 16:43:00 [facility] BMI 2024-08-28 16:43:00 18.29 kg[facility]m2 [facility] BMI (Body Mass Index) 2024-08-13 00:00:00 18[facility]6 [facility] 2024-08-13 00:00:00 135 mm[Hg] [facility] BP Diastolic 2024-08-13 00:00:00 66 mm[Hg] [facility] Height 2024-08-13 00:00:00 62 [in_i] [facility] Body Weight 2024-08-13 00:00:00 1623 [oz_av] [facility] BP Systolic 2024-08-08 00:00:00 130 mm[Hg] [facility] Body Weight 2024-08-08 00:00:00 1620 [oz_av] [facility] BMI (Body Mass Index) 2024-08-08 00:00:00 18.5 kg/m2 [facility] 2024-08-08 00:00:00 62 [in_i] [facility] BP Diastolic 2024-08-08 00:00:00 69 mm[Hg] [facility] Body Weight 2024-07-28 00:00:00 1616 [oz_av] [facility] Height 2024-07-28 00:00:00 62 [in_i] [facility] BP Systolic 2024-07-28 00:00:00 125 mm[Hg] [facility] BP Diastolic 2024-07-28 00:00:00 74 mm[Hg] [facility] BMI (Body Mass Index) 2024-07-28 00:00:00 18.5 kg/m2 [facility] BMI (Body Mass Index) 2024-07-24 00:00:00 18.4 kg/m2 [facility] Height 2024-07-24 00:00:00 62 [in_i] [facility] Body Weight 2024-07-24 00:00:00 1609.6 [oz_av] [facility] BP Diastolic 2024-07-24 00:00:00 79 mm[Hg] [facility] BP Systolic 2024-07-24 00:00:00 136 mm[Hg] [facility] Height 2024-07-22 00:00:00 62 [in_i] [facility] BP Diastolic 2024-07-22 00:00:00 68 mm[Hg] [facility] BMI (Body Mass Index) 2024-07-22 00:00:00 18.4 kg/m2 [facility] Body Weight 2024-07-22 00:00:00 1606 [oz_av] [facility] BP Systolic 2024-07-22 00:00:00 125 mm[Hg] [facility] Body Weight 2024-07-14 00:00:00 1600 [oz_av] [facility] BP Diastolic 2024-07-14 00:00:00 61 mm[Hg] [facility] BP Systolic 2024-07-14 00:00:00 133 mm[Hg] [facility] Body Weight 2024-07-09 00:00:00 1600 [oz_av] [facility] BMI (Body Mass Index) 2024-07-09 00:00:00 18.3 kg/m2 [facility] BP Diastolic 2024-07-09 00:00:00 70 mm[Hg] [facility] BP Systolic 2024-07-09 00:00:00 132 mm[Hg] [facility] Height 2024-07-09 00:00:00 62 [in_i] [facility] Heart rate 2024-07-08 11:12:19 81 /min [facility] Respiratory rate 2024-07-08 11:12:19 16 /min [facility] Oxygen saturation in Arterial blood by Pulse oximetry 2024-07-08 11:12:19 93 /min [facility] Systolic blood pressure 2024-07-08 11:11:53 105 mm[Hg] [facility] Diastolic blood pressure 2024-07-08 11:11:53 61 mm[Hg] [facility] Body temperature 2024-07-08 11:11:28 36.67 [facility] Body height 2024-07-01 12:59:00 160 cm [facility] Body weight 2024-07-01 12:59:00 45.4 kg [facility] BMI 2024-07-01 12:59:00 17.73 kg/m2 [facility] Heart rate 2024-07-08 11:12:19 81 /min [facility] Res[facility] 2024-07-08 11:12:19 16 /min [facility] Oxygen saturation in Arterial blood by Pulse oximetry 2024-07-08 11:12:19 93 /min [facility] Systolic blood pressure 2024-07-08 11:11:53 105 mm[Hg] [facility] Diastolic blood pressure 2024-07-08 11:11:53 61 mm[Hg] [facility] Body temperature 2024-07-08 11:11:28 36.67 [facility] Body height 2024-07-01 12:59:00 160 cm [facility] Body weight 2024-07-01 12:59:00 45.4 kg [facility] BMI 2024-07-01 12:59:00 17.73 kg/m2 [facility] Procedures Procedure Date / Time Performed Performing Clinician Source [place] ESOPHAGUS BARIUM SWALLOW WITH VIDEO AND SPEECH 2024-08-28 14:24:33 Isaak Manning [facility] CT brain wo IV contrast 2024-08-01 00:00:00 [facility] MAGNESIUM LEVEL 2024-07-08 10:44:00 Escobar Osborn [facility] FL ESOPHAGUS BARIUM SWALLOW WITH VIDEO AND SPEECH 2024-07-02 14:00:00 CarlosYesicana [facility] CT BRAIN WO IV CONTRAST 2024-07-02 10:35:00 Mukesh Gonzalez Radha [facility] BASIC METABOLIC PANEL 2024-07-02 03:20:00 Karrie Rausch [facility] COMPLETE BLOOD COUNT W/DIFF AND PLATELET 2024-07-02 03:20:00 Karrie Rausch [facility] COMPLETE BLOOD COUNT 2024-07-02 03:20:00 Karrie Rausch [facility] AUTOMATED DIFFERENTIAL 2024-07-02 03:20:00 Shalom Am y S [facility] B-TYPE NATRIURETIC PEPTIDE 2024-07-01 18:30:00 W job-Isaak Ballard [facility] TROPONIN I HIGH SENSITIVITY (SINGLE ORDER) 2024-07-01 18:30:00 [facility] [facility] CT BRAIN WO IV CONTRAST 2024-07-01 15:15:00 Grim, Herberth son Adela [facility] TRANSTHORACIC ECHO (TTE) COMPLETE W/ CONTRAST AND STRAIN 2024-07-01 13:37:00 Amish Whitt [facility] POCUS LIMITED BEDSIDE ULTRASOUND 2024-07-01 05:30:40 Elsy Sullivan [facility] UA WITH MICROSCOPIC NO CULTURE 2024-07-01 05:26:00 Amish Whitt [facility] MRI CERVICAL SPINE WO IV CONTRAST 2024-07-01 04:44:21 Radha Cheng [facility] CT ANGIOGRAM NECK 2024-07-01 03:00:10 Herlinda Whitt [facility] CT CHEST ABDOMEN PELVIS W IV CONTRAST 2024-07-01 03:00:10 Amish Whitt [facility] ECG 12-LEAD 2024-07-01 01:54:37 Amish Whitt [facility] BASIC METABOLIC PANEL 2024-07-01 00:01:00 Amish Whitt [facility] HEPATIC FUNCTION PANEL 2024-07-01 00:01:00 Amish Sloan [facility] ETHANOL LEVEL 2024-07-01 00:01:00 Amish Whitt [facility] CREATINE KINASE (CK TOTAL) 2024-07-01 00:01:00 G enkeya, Amish Hunt [facility] BLOOD GAS, VENOUS 2024-07-01 00:01:00 Jose Eduardo Herlinda Hunt [facility] MAGNESIUM LEVEL 2024-07-01 00:01:00 Elsy Sullivan [facility] TYPE AND SCREEN 2024-07-01 00:01:00 Jose Eduardo, Amish Hunt [facility] COMPLETE BLOOD COUNT W/DIFF AND PLATELET 2024-07-01 00:01:00 Jose Eduardo, Amish Hunt [facility] THROMBOELASTOGRAPH RAPID 2024-07-01 00:01:00 Gen keya, Amish Hunt [facility] LACTIC ACID WITH 2 HOUR REFLEX 2024-07-01 00:01:00 Jose Eduardo, Amish Hunt [facility] COMPLETE BLOOD COUNT 2024-07-01 00:01:00 Jose Eduardo, Amish Hunt [facility] AUTOMATED DIFFERENTIAL 2024-07-01 00:01:00 Del demarco Amish Hunt [facility] CT Angiography of Head and Neck with Contrast 2024-07-01 00:00:00 [facility] XR CHEST 1 VIEW 2024-06-30 23:41:09 Jose Eduardo Amish Hunt [facility] CT EXTERNAL HEAD 2024-06-30 00:00:00 Elsy Sullivan [facility] Extracapsular Cataract Extraction and Insertion of Intraocular Lens [facility] Lobectomy of Thyroid Gland [facility] XR lumbar spine 2-3 views [facility] Plan of Care Planned Activity Planned Date Details Comments Source Procedure 2024-09-28 00:00:00 XR cervical spine complete 4-5 views [facility] Encounters Start Date/Time End Date/Time Encounter Type Admission Type Attending Clinicians Care Facility Care Department Encounter ID Source 2024-09-28 00:00:00 2024-09-28 00:00:00 Orders Only Isaak Manning [facility] [id number] Rodney linn [facility] 2024-08-28 12:54:45 2024-08-28 15:49:17 Outpatient Elective MHEOUT MHEOUT [id number] [facility] 2024-08-28 12:59:17 2024-08-28 15:49:03 Outpatient Elective MHEOUT MHEOUT [id number] [facility] 2024-08-28 15:15:00 2024-08-28 15:30:00 Ancillary Procedure 1, Opid Xr [facility] [id number] [facility] 2024-08-28 12:59:21 2024-08-28 15:09:45 Outpatient Elective MHEOUT MHEOUT [id number] [facility] 2024-08-28 13:00:00 2024-08-28 15:07:58 Ancillary Procedure 1, Opid Xr/Fl [facility] [id number] Rodney [facility] 2024-08-28 12:54:03 2024-08-28 15:07:58 Outpatient Elective MHEOUT MHEOUT [id number] [facility] 2024-08-28 13:40:00 2024-08-28 13:40:00 Outpatient [facility] [id number] [facility] 2024-08-28 11:40:00 2024-08-28 11:40:00 Office Visit ISAAK MANNING [facility] [id number] [facility] 2024-08-18 14:00:00 2024-08-18 14:00:00 Outpatient ISAAK MANNING [facility] [id number] [facility] 2024-08-13 00:00:00 2024-08-13 00:00:00 MIGUEL ANGEL Augustine: [address] [place] [phone] , Ph. [facility]ly [facility] [id number] [facility] 2024-08-08 00:00:00 2024-08-08 00:00:00 MIGUEL ANGEL Augustine: [address] [place] [phone] , Ph. [facility] [id number] [facility] 2024-08-01 00:00:00 2024-08-01 12:35:49 Orders Only Isaak Manning [facility] [id number] [id number] Arnavboo kaveh [facility] 2024-08-01 00:00:00 2024-08-01 00:00:00 Outpatient [facility] [id number] [facility] 2024-07-28 00:00:00 2024-07-28 00:00:00 MIGUEL ANGEL Augustine: [address] [place], [place] [phone] , Ph. [facility] [id number] [facility] 2024-07-24 00:00:00 2024-07-24 00:00:00 Musa Brown MD: [address] [place] [phone] , Ph. [phone] [place] [address] [facility] [id number] [facility] 2024-07-22 00:00:00 2024-07-22 00:00:00 MIGUEL ANGEL Augustine: [address] [place] [phone] , Ph. [facility] [id number] [facility] 2024-07-14 00:00:00 2024-07-14 00:00:00 MIGUEL ANGEL Augustine: [address] [place] [address] , Ph. [facility] [id number] [facility] 2024-07-09 00:00:00 2024-07-09 00:00:00 Betty Marshall PA: [address] [place] [address] , Ph. [facility] [id number] [facility] 2024-06-30 21:48:00 2024-07-08 15:53:00 Hospital Encounter Laurie, Elsy Rebollar, Candice vázquez, Isaak Gonzalez, Yesica William, Frankie Patino, Missy Reddy, Candice Kulkarni, Omega Johnson, Brady Haro, Forrest Beard [facility] [id number] [id number] [facility] 2024-06-30 21:48:00 2024-07-08 15:53:00 Inpatient Trauma Center [facility] Trauma [id number] [facility] 2024-06-30 23:54:24 2024-07-01 23:59:00 Outpatient [facility] [id number] [facility] 2024-06-30 23:53:04 2024-07-01 23:59:00 Outpatient [facility] [id number] [facility] 2024-07-01 00:42:49 2024-06-30 23:59:00 Outpatient [facility] [id number] [facility] 2024-07-01 00:42:49 2024-06-30 23:59:00 Outpatient [facility] [id number] [facility] 2024-07-01 00:38:05 2024-06-30 23:59:00 Outpatient [facility] [id number] [facility] Results Test Description Test Time Test Comments Results Result Co mments Source [facility] [id number] 14:13:00* Test Item Value Reference Range Interpretation Comme nts BSA (test code = 7012921119) 1.42 m2 LV est EF (test code = 8333073748) 68 % LV stroke vol (test code = 1167622045) 68 ml LVIDd (test code = 5679404962) 47 mm LVIDs (test code = 7135576612) 29 mm LV ESV 2D (test code = 5040403) 32.8 mL LV EDV 2D (test code = 1955098) 103 mL IVSd (test code = 5036724443) 9 mm LVPWd (test code = 2358484054) 8 mm LVOT diam (test code = 2919112578) 19 mm LVOT area (test code = 1953910421) 2.84 cm2 Fractional Shortening 2D (te st code = 3627382221) 38 % MV E pk salvador (test code = 0310367486) 1.04 m/s MV A pk salvador (test code = 1509331664) 1.28 m/s MV E/A ratio (test code = 0536951721) MV e' lateral salvador (test code = 7275332682) 13.1 cm/s MV DT (test code = 2765293096) 188 ms MV e' septal salvador (test code = 3954573) 6.2 cm/s MV E/e' lateral (test code = 8996192) MV E/e' septal (test code = 9686562982) LVOT pk salvador (test code = 6692417556) 1.09 m/s LVOT mn grad (test code = 8493074110) mmHg LVOT Vmean (test code = 4572869653) 0.76 m/s LVOT VTI (test code = 7133826347) 24.1 cm LA size (test code = 0899613281) 32 mm RVOT VTI (test code = 5546913290) 9.4 cm RVOT pk salvador (test code = 0416016272) 0.65 m/s TAPSE (test code = 9263345304) 19 mm RVOT Vmean (test code = 4927327306) 0.48 m/s AV PHT (test code = 2236660763) 366 ms AV mn grad (test code = 3164279735) mmHg AV pk grad (test code = 4778864299) mmHg AV mn salvador (test code = 5519348137) 1.48 m/s AV pk salvador (test code = 6292028470) 2.13 m/s AV VTI (test code = 9843071028) 50.4 cm LVOT pk grad (test code = 0860071046) mmHg AV area cont VTI (test code = 6755828025) 1.36 cm2 AV area pk salvador (test code = 9462057502) 1.45 cm2 LVOT Vmax/AV Vmax (test code = 9800321340) 0.51 {ratio} MV PHT (test code = 8067362138) 55 ms MV area PHT (test code = 8950349462) 4 cm2 TR pk salvador (test code = 0245635664) 2.87 m/s TR pk grad (test code = 0940183179) mmHg PV mn grad (test code = 3882870927) mmHg PV pk salvador (test code = 3661410379) 0.64 m/s PV pk grad (test code = 3890447957) mmHg PV VTI (test code = 4875581) 11.1 cm RVOT mn grad (test code = 8980376393) mmHg RVOT pk grad (test code = 2988535163) mmHg PV mn salvador (test code = 9952796679) 0.5 m/s Ascending aorta (test code = 0140900081) [address] junction (test code = 7444036367) 21 mm Ao Root diam diastole (test code = 5604058485) 28 mm AR max salvador PISA (test code = 0981702778) 4.49 m/s IVSd 2D (test code = 1873358) 9.06 cm RVSP (test code = 3157382) mmHg RAP (test code = 6053391105) mmHg Sinus of Valsalva (test code = 0517400422) 31 mm Radiology Study observation (narrative) (test code = 16994-8) GIOVANI (test code = GIOVANI) [facility] Consult Notes Date/Time Note Provider Source 2024-07-04 12:51:41 Associated Order(s): IP SCREENING REFERRAL TO NUTRITION SERVICES NUTRITION ASSESSMENT - ADULT Unit: TIM[facility] Reason for RD Encounter: Screening Referral Screening Reason : BMI <20 Findings Nutrition Diagnosis: Nutrition Diagnosis: Inadequate oral intake related to decreased ability to consume sufficient energy as evidenced by caregiver report, unintentional weight loss, and estimated intake less than estimated needs. * Interventions and Recommendation: Diet per ORDER PROCESSING SPECIALIST Ensure Enlive TID - chocolate flavor only NUTRITION RISK: Moderate, in 5-7 days Next Date for Nutrition Services Follow Up: 07/04/24 Communication : [facility] Current Nutrition: Dietary Orders (From admission, onward) Start Ordered 07/03/24 1535 Adult Diet Dysphagia; 0 - Thin Liquids; 5 - Minced & Moist (Dysphagia Ground) Diet effective now Question Answer Comment Diet type Dysphagia Liquid Consistency or Liquid Type: 0 - Thin Liquids Modify Texture or Food Level (Dysphagia): 5 - Minced & Moist (Dysphagia Ground) 07/03/24 1534 Orderered Tube Feeds and Supplements Medication Dose Route Frequency Provider Last Rate Last Admin None PO/EN/PN Intakes: No data found. Nutrition Visit Information: 07/04: Pt evaluated by ORDER PROCESSING SPECIALIST - at risk for aspiration but family opting for PO diet w/ known risk for aspiration. Per daughter at bedside, pt has had decreased PO intake the past couple of weeks. UBW ~105 lbs. Current wt is ~100 lbs which would indicate 5 lb wt loss (~5%) but unclear time frame. Has not tried any ONS but willing to try during this admission. Does not take any vitamins/supplements regularly. NKFA. Family requesting for automatic trays for patient - modified in [employer]. Anthropometrics: Height: 160 cm (5' 2.99") Height Method: Estimated Weight: 45.4 kg Weight Method: Estimated Body mass index is 17.73 kg/m?. [place] body weight: 55.6 kg (122 lb 9 oz) Wt Readings from Last 10 Encounters: 07/01/24 45.4 kg (100 lb 1.4 oz) 06/30/24 47.6 kg (105 lb 0.1 oz) Estimated Nutrition Needs: Calculated Energy Needs Using Equations Height: 1.6 m (5' 2.99") Weight Used for Equation Calculations: 45.4 kg (100 lb) Energy Equation Used: Rule of thumb (kcal/kg) Energy Lower Range: 30 (kcal/kg) Energy Upper Range: 35 (kcal/day) Energy Needs Lower Range: 1361 kcal/day (kcal/day) Energy Needs Upper Range: 1588 kcal/day Temp: 36.8 ?C (98.2 ?F) Estimated Protein Needs (g/kg) Protein Lower Range: 1.2 (g/kg) Protein Upper Range: 1.5 (g/day) Protein Lower Range: 54 g/day (g/day) Protein Upper Range: 68 g/day Fluid Needs Fluid Needs Method: mL/kg/day (mL/kg) Fluid Needs: 25 (mL/day) Fluid Needs (Calculated): 1134 mL/day Nutrition Physical Findings per lead advisor: Orientation Level: Disoriented to place; Disoriented to time; Disoriented to situation O2 Delivery Method: Nasal cannula Gastrointestinal (WDL): X Abdomen Inspection: Soft Abdominal Tenderness: Soft Bowel Sounds: All quadrants LUE: Limited movement RUE: Limited movement LLE: Limited movement RLE: Limited movement Nutrition Focused Physical Exam - Muscles and Fat: Assessment of Muscle Status Date Assessed: 07/04/24 Spiritism Region: Higd-zi-nqvqxvwm deficit: Slight depression Clavicle Bone Region: Dvyo-zj-rfvhoacv deficit: More prominent clavicle bone, less prominent muscle when palpated Clavicle Acromion Bone Region: Lddj-mt-dsucooey deficit: Acromion process may slightly protrude Dorsal Hands Region: Djoa-cx-xecltvhf deficit: Slight depression between dorsal bones Anterior Thigh Region: No deficits noted Patellar Region: No deficits noted Calves-Posterior Region: No deficits noted Assessment of Fat Status Date Assessed: 07/04/24 Orbital Region: Ibeu-cx-vtujczmo deficit: Somewhat hollow look, slightly dark circles Cheek Region (Buccal Fat Pads): Wfeg-wo-makceoam deficit: Slight depression, somewhat sunken appearance, flat cheeks / Decrease in bounce back of fat pads Upper Arm Region: Ovpj-bk-tptoedtw deficit: Some depth pinch, not ample Basic Information: Admitting diagnosis: Subdural hematoma (HCC) [S06.5XAA] Closed nondisplaced fracture of second cervical vertebra, unspecified fracture morphology, initial encounter ([facility]/HCC) (HCC) [S12.101A] Compression fracture of thoracic vertebra, unspecified thoracic vertebral level, initial encounter ([facility]) [S22.000A] Clinical course: 89 yo h/o HTN, HLD, mild dementia s/p unwitnessed GLF -- found this AM by family. Xferred d/t C2 fx. Medications: escitalopram, 10 mg, Oral, Daily levETIRAcetam, 500 mg, Oral, BID lidocaine, 1 patch, Apply externally, Daily [Held by provider] losartan, 50 mg, Oral, Daily Memantine HCl-Donepezil HCl, 1 capsule, Oral, Daily mirabegron ER, 50 mg, Oral, Nightly montelukast, 10 mg, Oral, Nightly polyethylene glycol (PEG) 3350, 17 g, Oral, Daily pregabalin, 100 mg, Oral, Daily simvastatin, 10 mg, Oral, Nightly sodium chloride, 10 mL, Intravenous, q12h ISATU PRN medications: acetaminophen, ipratropium-albuterol, naloxone, ondansetron, oxyCODONE, oxyCODONE, sodium chloride Labs: Pertinent Labs : Labs in chart were reviewed. No results found for: "HGBA1C" Review / Management: I/O 24 HRS: Intake/Output Summary (Last 24 hours) at 07/04/2024 1251 Last data filed at 07/04/2024 0600 Gross per 24 hour Intake -- Output 400 ml Net -400 ml Monitoring and Evaluation: MONITORING AND EVALUATION: Muscle wasting, Fat wasting, Skin, Digestive/abdominal assessment, Goals of care, Nutrition Intake : PO intake and tolerance, and Labs: nutrition-related GOAL: >75% of estimated needs met: Registered Dietitian: Dixie Cutler RD, LD, [facility] Wknd/on-call pager: [phone] Nutrition [facility] 2024-07-01 00:26:19 NEUROSURGERY Consult Date: 07/01/24 Patients Name: Rosita Ramirez Admit Date: 06/30/2024 Admitting Provider: Elsy Sullivan MD : [id number] Service: Neurosurgery Spine Trauma Age/Sex: 89 y.o. female CHIEF COMPLAINT: - Chief Complaint: Unwitnessed fall C2 fracture - Consult Time: 12:26 AM - Evaluation Time: 12:35 AM HISTORY AND PHYSICAL: Rosita Ramirez is a 89 y.o. female was transferred to [facility] for the finding of C2 fracture after unwitnessed fall for neurosurgical evaluation. Past medical history includes hypertension, dementia, COPD. Patient denies any focal numbness or tingling. Has been able to answer questions and walk in the ED. REVIEW OF SYSTEMS: Unable to perform 14 point review of systems secondary to patients altered mental status and no family at bedside MEDICAL HISTORY: PAST MEDICAL HISTORY: Medical History[1] PAST SURGICAL HISTORY: Surgical History[2] PRE-ADMISSION MEDICATIONS: Prescriptions Prior to Admission[3] ALLERGIES: Allergies[4] SOCIAL HISTORY: - Hand dominance: right Social History[5] FAMILY HISTORY: Family history is non-contributory to current disease process Family History[6] VITAL SIGNS: Vitals: 06/30/24 2124 BP: 118/63 Pulse: 80 Resp: 16 Temp: 37.4 ?C (99.3 ?F) SpO2: 99% PHYSICAL EXAM: Awake and alert with iniezxno-mi-fct at bedside. 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 R/L Deltoids (C5): 4+/4+ Biceps (C6): 4+/4+ Triceps (C7): 4+/4+ Sustainable Landscape Architect (C8): 4+/4+ Finger abduction (T1): 4+/4+ Hoffmans -/- Ileopsoas (L2-L3): 5/5 Quadriceps (L4): 5/5 Dorsiflexion (L4): 5/5 Extensor halicus longus (L5): 5/5 Plantar flexion (S1): 5/5 Sensation intact to light touch throughout Reflexes 2+ throughout No clonus Babinski down/down LABS: Results from last 7 days Lab Units 07/01/24 0001 WBC 10*3/uL 9.84 HEMOGLOBIN g/dL 11.2 HEMATOCRIT % 32.6* PLATELETS 10*3/uL 193 LYMPHOCYTES % 12.0* MONOCYTES % 6.0 No lab exists for component: "LABALBU" No results found for: "PT", "INR", "PTT" No results found for: "ACTIVATEDCL" IMAGING: XR chest 1 view Final Result Trauma CT CHEST ABDOMEN PELVIS W IV CONTRAST (Results Pending) Trauma CT ANGIOGRAM NECK (Results Pending) NEURO ASSESSMENT/PLAN: Assessment: 89 y.o. female presented after an unwitnessed fall and found to have Impression: - type III dens fx Plan: -CT chest abdomen pelvis pending read -CTA neck pending read -MRI cervical spine and craniocervical junction without contrast ordered -[place] J ordered -Further neurosurgical recommendations pending MRI - Please call [facility] [place] [phone] if Tu-Fri from 6a-4p. If outside these hours then please page [phone]. [1] No past medical history on file. [2] No past surgical history on file. [3] (Not in a hospital admission) [4] No Known Allergies [5] [6] No family history on file. Cosigned by Isaak Manning MD at 07/01/2024 7:03 AM CDT Associated attestation - Isaak Manning MD - 07/01/2024 7:03 AM CDT I have reviewed the documented history, ROS, physical exam, and decision making and agree. Fracture through body of C2 with reasonable bony apposition. Patient appears to be neurologically intact. We will plan on management with MJ collar with close follow up. Neurosurgery [facility] History and Physical Notes Date/Time Note Provider Source 2024-07-02 00:41:45 Chief Complaint Transferred from [facility] for displaced C2 fracture s/p fall History Of Present Illness Rosita Ramirez is a 89 y.o. female with PMH of HTN, Alzheimer dementia, COPD. The patient's daughter was at bedside and she agreed with HPI. Reportedly the patient went to bed on the night of 07/30 at a regular time (9 :30-10 p.m.), family were out for dinner during that time. The next morning the daughter prepared the coffee and noticed that the patient did not get out of bed on the usual time so she went to check on her. Reportedly the patient fell out of bed sometime during the night but she was able to get up back to bed. She reported back of the head and neck pain. The pain did not go away despite doing heat compresses which prompted them to go to the ER on the morning of 07/31. Workup in the other ER facility was significant for neck fracture (C2 fracture) for which a decision was made to transfer her to our facility for further evaluation and management. At the time of evaluation the patient denied any pain, SOB, chest pain, palpitation or any other complaint. Past Medical History She has no past medical history on file. Surgical History She has a past surgical history that includes CT angiogram neck (07/01/2024). Family History Family History[1] Social History She has no history on file for tobacco use, alcohol use, and drug use. Allergies Patient has no known allergies. Medications Prescriptions Prior to Admission[2] Review of Systems Unable to perform ROS: Dementia Last Recorded Vitals Blood pressure 149/65, pulse 78, temperature 36.7 ?C (98.1 ?F), temperature source Oral, resp. rate 18, height 1.6 m (5' 2.99"), weight 45.4 kg (100 lb 1.4 oz), SpO2 93%. Physical Exam: Vitals reviewed. Constitutional: General: She is not in acute distress. HENT: Head: Normocephalic and atraumatic. Right Ear: External ear normal. Left Ear: External ear normal. Nose: No congestion or rhinorrhea. Mouth/Throat: Mouth: Mucous membranes are dry. Pharynx: No oropharyngeal exudate or posterior oropharyngeal erythema. Eyes: Extraocular Movements: Extraocular movements intact. Conjunctiva/sclera: Conjunctivae normal. Pupils: Pupils are equal, round, and reactive to light. Neck: Comments: Cervical collar in place Cardiovascular: Rate and Rhythm: Normal rate and regular rhythm. Pulses: Normal pulses. Heart sounds: Normal heart sounds. No murmur heard. No friction rub. No gallop. Pulmonary: Effort: Pulmonary effort is normal. Breath sounds: Normal breath sounds. No wheezing, rhonchi or rales. Abdominal: General: There is no distension. Palpations: Abdomen is soft. Tenderness: There is no abdominal tenderness. Musculoskeletal: General: No tenderness or deformity. Cervical back: No rigidity. Right lower leg: No edema. Left lower leg: No edema. Lymphadenopathy: Cervical: No cervical adenopathy. Skin: Findings: No lesion or rash. Neurological: General: No focal deficit present. Mental Status: She is alert and oriented to person, place, and time. Cranial Nerves: No cranial nerve deficit. Sensory: No sensory deficit. Motor: No weakness. Relevant Results ECG 12 lead SINUS RHYTHM NORMAL ECG NO PREVIOUS ECGS AVAILABLE Confirmed by James Rojas ([id number]) on 07/01/2024 6:06:[address] BRAIN WO IV CONTRAST EXAM: CT BRAIN WITHOUT CONTRAST DATE: 07/01/2024 15:00 INDICATION: SDH stability scan COMPARISON: Comparison was performed with prior CT scan dated June 30, 2024. TECHNIQUE: Axial CT images of the brain were obtained. Sagittal and coronal reformats. IV contrast: None DLP: Refer to CT protocol form FINDINGS: CT scan examination shows stable small laminar subdural hematoma in the right cerebral convexity, measuring up to 3 mm in maximal thickness. Minimal amount of subarachnoid hemorrhage layering in the interpeduncular cistern (sequence 902, image 7), as well as tiny layering blood levels in the lateral ventricles (sequence 902, image 13). Redemonstration of diffuse cerebral volume loss and chronic microvascular ischemic changes in the supratentorial white matter. Otherwise, negative for intracranial midline shift hydrocephalus or brain herniation. Calcified atherosclerotic changes in the carotid siphons. Bilateral intraocular lens replacement. Mild mucosal thickening in the ethmoid air cells and sphenoid sinuses. Partially visualized nasal implant. Partial visualized C2 vertebral body fracture. IMPRESSION: * Stable small laminar subdural hematoma in the right cerebral convexity. * Minimal amount of subarachnoid hemorrhage layering in the interpeduncular cistern, and tiny layering blood levels in the lateral ventricles. * Unchanged other chronic findings. Report finalized by: Joe Jarrett MD 07/01/2024 15:30 Transthoracic echo (TTE) complete Left Ventricle: Left ventricle size is normal. Normal wall thickness in the left ventricle. Septal motion is consistent with bundle branch block. Normal systolic function with an estimated EF of 60 - 65%. LV est EF is 68%. Normal diastolic function of the left ventricle for age. Apical thrombus is not present verified by the use of contrast. Right Ventricle: Right ventricle size is normal. Normal systolic function in the right ventricle. Aortic Valve: Mild trileaflet aortic valve sclerosis is present. Mildly restricted motion. Mild aortic regurgitation present. Mild aortic stenosis present. AV mn grad is 10.00 mmHg. AV pk salvador is 2.13 m/s. AV area pk salvador is 1.45 cm2. FELA by 2D planimetry 1.6 cm2. Mitral Valve: Mild posterior mitral annular calcification. Mild mitral regurgitation present. Tricuspid Valve: Mild pulmonary hypertension present. RVSP is 38.00 mmHg. Aorta: Mildly dilated aortic root for BSA. Sinus of Valsalva is 31 mm. Pericardium: No pericardial effusion present. Echo contrast used for endocardial border enhancement. MRI cervical spine wo IV contrast EXAM: MRI CERVICAL SPINE WITHOUT CONTRAST DATE: 07/01/2024 3:37 INDICATION: C2 type 3 fx . COMPARISON: CT cervical spine and angiogram neck dated 07/01/2024. TECHNIQUE: Multiplanar, multisequence, noncontrast MR imaging of the cervical spine. 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 Numbering: There are 6 cervical vertebrae with congenital fusion of C3, C4, and C5. The first rib bearing vertebra is referred to as T1 with the disc level above referred to as C6-T1. Alignment: No traumatic malalignment of the craniocervical junction or subaxial cervical spine. Bones: There is an acute type III odontoid fracture with slight anterior translation and slight posterior angulation of the dens relative to the lower C2 vertebral body, with the fracture plane extending through the lateral masses bilaterally and involving the C2 transverse processes bilaterally. There is an acute minimally compressed fracture of T3. There is bone marrow edema in the anterosuperior endplate of T1 without compression consistent with a nondisplaced fracture. There is congenital fusion of the vertebral bodies of C3, C4, and C5. Spinal Cord: There is mild spinal cord compression at C2-3 described below. No abnormal cord signal. Spinal Canal: No epidural or subdural hemorrhage. Ligaments: There is mild edema in the prevertebral space anterior to C2-3 likely representing ligamentous injury of the anterior longitudinal ligament. There is no definite evidence of posterior longitudinal ligament injury. Discs & Individual Levels: Disc osteophyte complex and ligamenta flava infolding result in moderate spinal canal narrowing with mild spinal cord compression. No abnormal cord signal. Disc osteophyte complex and left facet arthropathy results in severe left neural foraminal stenosis at C6 T1. Other: No paraspinous or paravertebral edema. The normal T2 hypointense flow voids of the larger arteries in the neck are maintained. IMPRESSION: Please pay attention that there are only 6 nonrib-bearing cervical vertebral bodies designated as C1-C6. The C3, C4 and C5 vertebral bodies are fused. 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 The first rib bearing vertebra is referred to as T1 with the disc level above referred to as C6-T1. * Acute minimally displaced and angulated type III odontoid fracture with fracture planes extending through the lateral masses and transverse processes. * Disc osteophyte complex at C2-C3 and ligamenta flava infolding resulting in moderate spinal canal narrowing and mild cord compression without abnormal cord signal. * Acute compression fracture of the superior endplate of of T1. Acute compression fracture of the T3.. This report was dictated by a Gas Engine Operator [employer]ressors/Fellow/DIANA: Preston Flores RES, MD 07/01/2024 8:49 This report was dictated by a Gas Engine Operator Compressors/Fellow/Physician Compliance Aide. I have personally reviewed the images as well as the interpretation and agree with the findings. Report finalized by: Jony Fuller MD 07/01/2024 12:[address] CHEST ABDOMEN PELVIS W IV CONTRAST EXAM: CT CHEST WITH CONTRAST EXAM: CT ABDOMEN AND PELVIS WITH CONTRAST DATE: 07/01/2024 2:40 INDICATION: High c Spine fx COMPARISON: None TECHNIQUE: Volumetric CT of the chest, abdomen and pelvis is acquired following intravenous administration of contrast. Axial, coronal and sagittal images are provided. FINDINGS: Digital Account Coordinator: Noncontributory. Lines and tubes: None. Lower Neck: Supraclavicular soft tissues are within normal limits. Patient status post right thyroid lobectomy. Thoracic Aorta and Mediastinum: No mediastinal hematoma or thoracic aortic injury. Normal heart and pericardium. There is calcification of aortic valve as well as mitral annulus Lungs, Pleura, Diaphragm: No pulmonary contusions. Minimal paraseptal emphysematous changes. Bilateral lower lung linear opacities may represent scarring atelectasis versus aspiration. Trace right pleural effusion with associated compressive atelectasis. No pneumothorax chronic appearing defect within left diaphragm associated with small volume of herniated fat (series 6 image19- 23, series /). Liver and biliary tree: No injury. Gallbladder: No injury. Pancreas: No injury. Spleen: No injury. Adrenals: No injury. Kidneys and ureters: No injury. Simple fluid attenuation left renal cyst. No hydronephrosis or nephrolithiasis bilateral nonspecific perinephric fat stranding is present. Bladder: No injury. Mild diffuse bladder wall thickening may be secondary to underdistention Reproductive organs: No injury. Gastrointestinal tract: No injury. Diverticulosis without diverticulitis. Peritoneum and retroperitoneum: No fluid collections or free air. Lymph nodes: Normal. Vasculature: No vascular injury. Spine/ Bones: No acute abnormality of the spine. No other bony injury. Chronic appearing wedge compression deformities with degenerative change are seen at T11-12. Chronic appearing partially calcified destructive, expansile lesion is seen arising from the lateral border of the right sixth rib of the sixth rib (series 2 image 57). No other suspicious osseous lesions. Soft tissues: Normal soft tissue contusion along the left hip IMPRESSION: 1. No acute traumatic abnormality within the abdomen or pelvis. 2. An expansile partially calcified lesion is present at the lateral border of the right sixth rib. Correlation with tissue analysis recommended. No other suspicious osseous lesions. 3. Diffuse bladder wall thickening may be secondary to under distention, correlate with urinalysis to rule out cystitis. 4. Bilateral nonspecific perinephric fat stranding is present which may indicate underlying medical renal disease. 5. Bibasilar atelectasis is present with trace right pleural effusion also seen. 6. Paraseptal emphysematous changes are present. 7. There is calcification of aortic valve and mitral annulus. 8. Colonic diverticulosis. 9. 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 10. 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 11. Other incidental findings as above. This report was dictated by a Gas Engine Operator Compressors/Fellow/DIANA: Yesenia Jane, RES 07/01/2024 6:02 This report was dictated by a Gas Engine Operator Compressors/Fellow/Physician Compliance Aide. I have personally reviewed the images as well as the interpretation and agree with the findings. Report finalized by: Desi Fox MD 07/01/2024 8:[address] ANGIOGRAM NECK EXAM: CTA NECK DATE: 07/01/2024 2:40 INDICATION: C2 fracture COMPARISON: None. TECHNIQUE: Rapid acquisition spiral CT images of the neck were obtained between the aortic arch and the skull base with intravenous contrast for the purposes of CT angiography. 3D angiographic postprocessing with MIP (maximum intensity projection) reformatted images were made at the scanner. IV contrast: Refer to MAR/cat scan technologist documentation DLP: Refer to CT protocol form FINDINGS: Aortic arch: Common origin of the innominate artery and left common carotid artery. No origin stenosis is identified. Carotid arteries: No evidence of vascular injury. Normal. Vertebral arteries: No evidence of vascular injury. Normal. Intracranial arteries: The visible intracranial vessels are unremarkable. Small posteriorly projecting saccular dilatation at the right supraclinoid ICA is seen probably representing infundibulum (series 901 image 80). Possible small laterally projecting aneurysm at the left MCA bifurcation (series 900 image 102 and series 5 image 22). Nonvascular: Minimal paraseptal emphysematous changes in the lung apices. Patient is status post right thyroid lobe resection. The left thyroid lobe is unremarkable. Partially visualized metallic hardware along the bilateral anterior maxillary sinuses. Redemonstrated type II fracture of the dens. IMPRESSION: * No arterial injury in the neck. 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 * Redemonstrated type II fracture of the dens. (All qualitative and quantitative assessments of carotid bifurcation and proximal internal carotid artery stenosis are made referencing the distal internal carotid artery, NASCET criteria.) This report was dictated by a Gas Engine Operator Compressors/Fellow/DIANA: Yesenia Jane, RES 07/01/2024 3:45 This report was dictated by a Gas Engine Operator Compressors/Fellow/Physician Compliance Aide. I have personally reviewed the images as well as the interpretation and agree with the findings. Report finalized by: Forrest Lee MD 07/01/2024 8:29 CT BRAIN WO IV CONTRAST EXAM: CT BRAIN WITHOUT CONTRAST - OUTSIDE CONSULT DATE: 06/30/2024 0:05 INDICATION: Fall, C2 fracture COMPARISON: None. TECHNIQUE: Outside hospital noncontrast head CT was submitted for second interpretation. The outside hospital radiologist's report was available. FINDINGS: Small subdural hemorrhage along the right cerebral convexity measuring 2.6 mm in thickness. Minimal mass effect upon the underlying brain parenchyma. No midline shift or downward herniations. No evidence of other acute intracranial hemorrhages. The ventricles and sulci are enlarged from chronic brain parenchymal volume loss. Periventricular white matter hypoattenuation is nonspecific but likely represents chronic microvascular ischemic changes. The skull base, calvarium, and included facial bones are unremarkable. The paranasal sinuses are predominantly clear. Partially visualized fracture of C2 as described in a separate cervical spine CT report. IMPRESSION: * Small subdural hemorrhage along the right cerebral convexity measuring up to 2.6 mm in thickness. Mild mass effect upon the right cerebral hemisphere. No midline shift or downward herniations * No other acute intracranial hemorrhages. * Generalized cerebral volume loss with chronic small vessel disease. Report finalized by: Forrest Lee MD 07/01/2024 6:15 CT CERVICAL SPINE WO IV CONTRAST EXAM: CT CERVICAL SPINE WITHOUT CONTRAST DATE: 06/30/2024 0:10 INDICATION: Status post fall. Trauma transfer for higher level of care. Request for outside film interpretation. COMPARISON: None TECHNIQUE: Noncontrast CT images of the cervical spine. Axial, sagittal and coronal images provided. FINDINGS/ IMPRESSION: 1. Agree with the following findings in the outside report: Acute type II fracture of the dens associated with approximately 45 degrees posterior angulation of the odontoid process fragment. 2. Additional and/or updated findings include: There is ankylosis of the C3-C6 vertebral bodies. There is slight retrolisthesis of C2 upon C3 and C6 upon C7 which appears compensatory for intervening fused levels. Degenerative disc disease is present at C2-3, and throughout the visualized spine from C7-T4 associated with multilevel cervical spondylosis.. There is generalized decreased bone mineral density. Chondrocalcinosis is present in transverse ligament posterior to the odontoid process Report finalized by: Desi Fox MD 07/01/2024 3:19 CT external head This order has been auto-finalized and does not contain a result. Pertinent Labs : Labs in chart were reviewed. Lab Results Component Value Date WBC 9.84 07/01/2024 Hgb 11.2 07/01/2024 Hct 32.6 (L) 07/01/2024 Plt Count 193 07/01/2024 Lab Results Component Value Date Sodium Lvl 143 07/01/2024 Potassium Lvl 4.5 07/01/2024 Chloride Lvl 109 (H) 07/01/2024 CO2 Lvl 27.4 07/01/2024 BUN 20 07/01/2024 Creatinine Lvl 1.16 (H) 07/01/2024 Glucose Lvl 99 07/01/2024 Lab Results Component Value Date Calcium Lvl 9.0 07/01/2024 Magnesium 1.89 07/01/2024 Lab Results Component Value Date AST 27 07/01/2024 ALT 10 07/01/2024 Alkaline Phosphatase 66 07/01/2024 No results found for: "PTT", "PT", "INR" Lab Results Component Value Date UA Color Yellow 07/01/2024 UA Spec Grav <=1.005 07/01/2024 UA pH 5.5 07/01/2024 UA Protein Negative 07/01/2024 UA Glucose Negative 07/01/2024 UA Ketones Negative 07/01/2024 UA Nitrite Negative 07/01/2024 UA Leuk Esterase Negative 07/01/2024 UA Bilirubin Negative 07/01/2024 UA Urobilinogen 0.2 07/01/2024 Lab Results Component Value Date HS Troponin I 21 07/01/2024 Natriuretic Peptide B 307 (H) 07/01/2024 Assessment & Plan Ground-level fall Trauma workup was significant for: Chest x-ray showing cardiomegaly with interstitial and alveolar pulmonary edema, scattered linear opacities consistent with atelectasis/parenchymal scarring, enlarged pulmonary artery, 4.25 cm ovoid calcific density over the inferior right lateral chest wall likely centered in chest wall or breast tissue CT cervical spine with acute type II fracture of the dens associated with approximately 45 degree posterior angulation of the odontoid process fragment 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, C4 and C5, acute minimally displaced and angulated type III odontoid fracture, acute compression fracture of the superior endplate of T1, acute compression fracture of T3 CT head with a small subdural hematoma along the right cerebral convexity measuring up to 2.6 mm with mild mass effect on the right cerebral hemisphere, no midline shift Workup is otherwise negative for any other acute changes Closed nondisplaced fracture of second cervical vertebra, unspecified fracture morphology, initial encounter (CMS/[facility]) ([facility]) Type III fracture of odontoid process ([facility]) CT and MRI findings as mentioned before Neurosurgery on board, , no plans for acute neurosurgical intervention, recommendations are to remain in [place] cervical collar at all times, follow-up in spine clinic in 2 weeks\\ MMPR Traumatic subdural hematoma (HCC) Repeat CT head showed a stable small laminar subdural hematoma in the right cerebral convexity with minimal amount of subarachnoid hemorrhage layering in the interpeduncular cistern No acute surgical intervention per neurosurgery Continue to monitor Compression fracture of T3 vertebra (HCC) Acute compression fractures of T1, T3 MMPR Alzheimer's dementia (HCC) Chronic, stable Resume home dose of memantine/donepezil, escitalopram, trazodone Essential hypertension Currently normotensive Hold losartan and continue to monitor COPD (chronic obstructive pulmonary disease) (HCC) Chronic, stable Resume montelukast Mixed hyperlipidemia Resume home dose simvastatin Current Diet: Adult Diet Regular VTE Prophylaxis SCD Hold chemical prophylaxis due to acute subdural hematoma Disposition Admit to med/surg floor [1] No family history on file. [2] (Not in a hospital admission) [facility] Notes Date/Time Note Provider Source Referral ID Status Reason Start Date Expiration Date Visits Requested Visits Authorized [id number] Authorized Perform Procedure 08/28/2024 02/24/2025 1 1 [id number] 16:47:47* Shelby Manuel CCC-ORDER PROCESSING SPECIALIST - 08/28/2024 1:00 PM CDT [place] DELIA PACHECO/: Isaak Manning MD MODIFIED BARIUM SWALLOW STUDY:-Pt was positioned upright in fluoro-chair to 90 degrees and viewed in the lateral projection. -Boluses: Thin liquid and mildly thick liquids via cup , tsp of puree, and 1/4 barium coated cookie were administered. Sequential swallows of all liquids elicited. -Oral phase: Lip closure for intraoral bolus containment resulted in no labial escape. Bolus preparation and mastication was slow prolonged due to ill fitting dentures. Bolus transport/lingual motion was slow with some tongue pumping due to ill fitting dentures. Complete oral clearance. Initiation of the pharyngeal swallow occurred as the bolus head reached the pyriform sinus for thin and mildly thick liquids and valleculae for pureed and regular consistencies. base of tongue. -Pharyngeal phase: Soft palate elevation allowed no bolus between soft palate and pharyngeal wall. Laryngeal elevation was adequate. Anterior hyoid excursion was complete anterior movement. Epiglottic movement resulted in complete inversion. Laryngeal vestibule closure was complete with no air/contrast in laryngeal vestibule. Pharyngeal stripping wave was present and complete. Pharyngoesphageal segment opening demonstrated no obstruction of flow. Tongue base retraction allowed narrow contrast between tongue base and posterior pharyngeal wall. Only minimal valleculae residue after the swallow with regular consistency which cleared with additional sip of thin liquid. Complete pharyngeal clearance. -Penetration/aspiration:No aspiration or laryngeal penetration with any of the presented consistencies. -SUMMARY:Oral and pharyngeal stages of swallowing are within functional limits. NOTE: Significant improvement since previous MBS study 07-02-2024 -Recommendations:1.Regular consistency diet, thin liquids. Dietary supplements 2. Follow written swallow precautions which were explained, demonstrated, and given to pt and daughter Christina. These include: sit upright, small bites/sips slowly alternating each. 3. Proper oral hygiene [id number] 16:47:47Upcoming Encounters Health Maintenance Due Date Last Done Comments Bone Density Scan 1935 Lipid Panel 1935 Medicare Annual Wellness (AWV) 1935 DTaP/Tdap/Td Vaccines (1 - Tdap) 06/30/1955 Pneumococcal Vaccine: 50+ Ye ars (1 of 2 - PCV) 06/30/1955 Zoster Vaccines (1 of 2) 1986 Respiratory Syncytial Virus (RSV) Adult Series (1 - 1-dose 75+ series) 06/30/2011 Influenza Vaccine Completed 04/02/2024 HIB Vaccines Aged Out No longer eligi ble based on patient's age to complete this topic HPV Vaccines Aged Out No longer eligi ble based on patient's age to complete this topic Hepatitis A Vaccines Aged Out No long er eligible based on patient's age to complete this topic Hepatitis B Vaccines Aged Out No long er eligible based on patient's age to complete this topic IPV Vaccines Aged Out No longer eligi ble based on patient's age to complete this topic Meningococcal Vaccine Aged Out No suzanne ronni eligible based on patient's age to complete this topic Rotavirus Vaccines Aged Out No longer eligible based on patient's age to complete this topic [id number] 16:47:47 [facility]10 16:47:47 Diagnosis Nontraumatic subdural hemorr esperanza, unspecified (CMS/HCC) (HCC) Unspecified displaced fractu re of second cervical vertebra, subsequent encounter for fracture with routine healing Dysphagia, unspecified Nontraumatic subdural hemorr esperanza, unspecified (CMS/HCC) (HCC) Unspecified displaced fractu re of second cervical vertebra, subsequent encounter for fracture with routine healing Dysphagia, unspecified [facility] [id number] 16:47:47 [facility]Kthsmbz9527-07-41 15:28:11* DIANA BillsORDER PROCESSING SPECIALIST - 08/28/2024 3:15 PM CDT BERTHAN RN/MD: MODIFIED BARIUM SWALLOW STUDY: -Pt was positioned upright in fluoro-chair to 90 degrees and viewed in the lateral projection. -Boluses: Thin liquid and mildly thick liquids via cup , tsp of puree, and 1/4 barium coated cookie were administered. Sequential swallows of all liquids elicited. -Oral phase: Lip closure for intraoral bolus containment resulted in no labial escape. Bolus preparation and mastication was timely and efficient. Bolus transport/lingual motion was brisk. Complete oral clearance. Initiation of the pharyngeal swallow occurred as the bolus head reached the base of tongue. Piecemeal deglutition observed. -Pharyngeal phase: Soft palate elevation allowed no bolus between soft palate and pharyngeal wall. Laryngeal elevation was adequate. Anterior hyoid excursion was complete anterior movement. Epiglottic movement resulted in complete inversion. Laryngeal vestibule closure was complete with no air/contrast in laryngeal vestibule. Pharyngeal stripping wave was present and complete. Pharyngoesphageal segment opening demonstrated no obstruction of flow. Tongue base retraction allowed narrow contrast between tongue base and posterior pharyngeal wall. Complete pharyngeal clearance. -Penetration/aspiration:No aspiration or laryngeal penetration with any of the presented consistencies. -SUMMARY:Oral and pharyngeal stages of swallowing are within functional limits. -Recommendations:1. [id number] 15:28:11Upcoming Encounters Pending Results Name Type Priority Associated Diagnoses Date /Time XR lumbar spine 2-3 views Imaging Routine Nontraumatic subdura l hemorrhage, unspecified (CMS/HCC) (HCC) 08/28/2024 1:39 PM CDT Health Maintenance Due Date Last Done Comments Bone Density Scan 1935 Lipid Panel 1936 Medicare Annual Wellness (AWV) 1935 DTaP/Tdap/Td Vaccines (1 - Tdap) 06/30/1955 Pneumococcal Vaccine: 50+ Ye ars (1 of 2 - PCV) 06/30/1955 Zoster Vaccines (1 of 2) 1986 Respiratory Syncytial Virus (RSV) Adult Series (1 - 1-dose 75+ series) 06/30/2011 Influenza Vaccine Completed 04/02/2024 HIB Vaccines Aged Out No longer eligi ble based on patient's age to complete this topic HPV Vaccines Aged Out No longer eligi ble based on patient's age to complete this topic Hepatitis A Vaccines Aged Out No long er eligible based on patient's age to complete this topic Hepatitis B Vaccines Aged Out No long er eligible based on patient's age to complete this topic IPV Vaccines Aged Out No longer eligi ble based on patient's age to complete this topic Meningococcal Vaccine Aged Out No suzanne ronni eligible based on patient's age to complete this topic Rotavirus Vaccines Aged Out No longer eligible based on patient's age to complete this topic [id number] 15:28:11 [facility]Fgyckzi4717-79-01 15:28:11 Diagnosis Nontraumatic subdural hemorr esperanza, unspecified (CMS/HCC) (HCC) Nontraumatic subdural hemorr esperanza, unspecified (CMS/HCC) (HCC) Unspecified displaced fractu re of second cervical vertebra, subsequent encounter for fracture with routine healing Dysphagia, unspecified [facility] [id number] 15:28:11 [facility] [id number] 12:23:37Scheduled Orders Health Maintenance Due Date Last Done Comments Bone Density Scan 1936 Lipid Panel 1936 Medicare Annual Wellness (AWV) 1936 DTaP/Tdap/Td Vaccines (1 - Tdap) 06/30/1955 Pneumococcal Vaccine: 50+ Ye ars (1 of 2 - PCV) 06/30/1955 Zoster Vaccines (1 of 2) 1986 Respiratory Syncytial Virus (RSV) Adult Series (1 - 1-dose 75+ series) 06/30/2011 Influenza Vaccine (Season Ended) 2024 HIB Vaccines Aged Out No longer eligi ble based on patient's age to complete this topic HPV Vaccines Aged Out No longer eligi ble based on patient's age to complete this topic Hepatitis A Vaccines Aged Out No long er eligible based on patient's age to complete this topic Hepatitis B Vaccines Aged Out No long er eligible based on patient's age to complete this topic IPV Vaccines Aged Out No longer eligi ble based on patient's age to complete this topic Meningococcal Vaccine Aged Out No suzanne ronni eligible based on patient's age to complete this topic Rotavirus Vaccines Aged Out No longer eligible based on patient's age to complete this topic [id number] 12:23:37 [facility]Rttudxh3205-98-92 12:23:37 Diagnosis Nontraumatic subdural hemorr esperanza, unspecified (CMS/HCC) (HCC) Unspecified displaced fractu re of second cervical vertebra, subsequent encounter for fracture with routine healing Dysphagia, unspecified [id number] 12:23:37 [facility]Pdsbnhr7223-62-33 12:35:59* Imaging (Routine) - Authorized Specialty Diagnoses / Procedures Referred By Contac t Referred To Contact Radiology Diagnoses Unspecified nondisplaced fracture of second cervical vertebra, initial encounter for closed fracture (CMS/HCC) (HCC) Traumatic subdural hemorrhage with loss of consciousness of unspecified duration, initial encounter (CMS/HCC) (HCC) Procedures CT brain wo IV contrast Isaak Manning MD [address] [address] Phone: tel: fax: Referral ID Status Reason Start Date Expiration Date V isits Requested Visits Authorized [id number] Authorized 08/01/2024 01/28/2025 1 1 [facility]Movsxnp4025-83-34 12:35:59Scheduled Orders Health Maintenance Due Date Last Done Comments Bone Density Scan 1935 Lipid Panel 1935 Medicare Annual Wellness (AWV) 1935 DTaP/Tdap/Td Vaccines (1 - Tdap) 06/30/1955 Pneumococcal Vaccine: 50+ Ye ars (1 of 2 - PCV) 06/30/1955 Zoster Vaccines (1 of 2) 1986 Respiratory Syncytial Virus (RSV) Adult Series (1 - 1-dose 75+ series) 06/30/2011 Influenza Vaccine (Season Ended) 2024 HIB Vaccines Aged Out No longer eligi ble based on patient's age to complete this topic HPV Vaccines Aged Out No longer eligi ble based on patient's age to complete this topic Hepatitis A Vaccines Aged Out No long er eligible based on patient's age to complete this topic Hepatitis B Vaccines Aged Out No long er eligible based on patient's age to complete this topic IPV Vaccines Aged Out No longer eligi ble based on patient's age to complete this topic Meningococcal Vaccine Aged Out No suzanne ronni eligible based on patient's age to complete this topic Rotavirus Vaccines Aged Out No longer eligible based on patient's age to complete this topic [facility] [id number] 12:35:59 [place] [id number] 12:35:59 Diagnosis Unspecified nondisplaced fra cture of second cervical vertebra, initial encounter for closed fracture ([facility]) ([facility]) Traumatic subdural hemorrhag e with loss of consciousness of unspecified duration, initial encounter ([facility]) ([facility]) [facility] [id number] 12:35:59 [place] [id number] 15:53:57* Home Health (Routine) - Authorized Specialty Diagnoses / Procedures Referred By Sallie t Referred To Contact Home Health Services Diagnoses Closed nondisplaced fracture of second cervical vertebra, unspecified fracture morphology, initial encounter ([facility]) ([facility]) Compression fracture of thoracic vertebra, unspecified thoracic vertebral level, initial encounter ([facility]) Yesica Gonzalez MD [address] [facility] [id number] [place] [address] Phone: tel: fax: Referral ID Status Reason Start Date Expiration Date Visits Requested Visits Authorized [id number] Authorized Specialty Services Required 07/03/2024 09/01/2024 999 999 * Consultation (Routine) - Authorized Specialty Diagnoses / Procedures Referred By Contac t Referred To Contact Neurosurgery Diagnoses Closed nondisplaced fracture of second cervical vertebra, unspecified fracture morphology, initial encounter ([facility]) (HCC) Subdural hematoma (HCC) Yesica Gonzalez MD [address] [place] [address] Phone: tel: fax: Too Hurley MD [address] [facility] [address] [place] [address] Phone: tel: fax: Referral ID Status Reason Start Date Expiration Date Visits Requested Visits Authorized [id number] Authorized Specialty Services Required 07/02/2024 12/29/2024 1 1 [facility] HospitalUcwijwv0027-03-89 15:53:57* * Auth/Cert (Routine) Specialty Diagnoses / Procedures Referred By Contac t Referred To Contact Diagnoses Closed nondisplaced fracture of second cervical vertebra, unspecified fracture morphology, initial encounter ([facility]) (HCC) Displaced C2 Fxr Procedures [facility] IP/OBS CARE SF/LOW MDM 40 MINUTES Yesica Gonzalez MD [address] [place] [address] Phone: tel: fax: [facility] (Emergency) [address] [place] [id number] Phone: tel: Referral ID Status Reason Start Date Expiration Date Visits Re quested Visits Authorized [id number] 1 1 [facility]Kawxkcm4729-59-98 15:53:57* Audit-C Score Answer Date of Assessment Author 0 07/03/2024 11:12 PM CYNTHIAT Dejah Craft i, RN * Intimate Partner Violence Question Answer Date of Assessment Author Within the last year, have y ou been humiliated or emotionally abused in other ways by your partner or ex-partner? No 07/03/2024 11:12 PM CDT Estefania Rodriguez RN Within the last year, have y ou been afraid of your partner or ex-partner? No 07/03/2024 11:12 PM CYNTHIAT Estefania Rodriguez RN Within the last year, have y ou been raped or forced to have any kind of sexual activity by your partner or ex-partner? No 07/03/2024 11:12 PM Estefania Alegria RN Within the last year, have y ou been kicked, hit, slapped, or otherwise physically hurt by your partner or ex-partner? No 07/03/2024 11:12 PM CYNTHIAT Estefania Rodriguez RN * * Over the past 2 weeks, how often have you been bothered by any of the following problems? Question Answer Date of Assessment Author Little interest or pleasure in doing things Several days 07/03/2024 9:45 PM Dejah Alegria RN Feeling down, depressed, or hopeless Not at all 07/03/2024 9:45 PM Dejah Alegria RN Patient Health Questionnaire-2 Score 1 07/03/2024 9:45 PM CYNTHIAT Oneida Rodriguez am, RN * Calculated C-SSRS Risk Score (Lifetime/Recent) Answer Date of Assessment Author No Risk Indicated 07/01/2024 9:08 PM Hawk Kolb RN * In the past month, have you... Question Answer Date of Assessment Author Had nightmares about the ronald nts or thought about the events when you did not want to? No 07/03/2024 9:45 PM Dejah Alegria RN Tried hard not to think abou t the events or went out of your way to avoid situations that reminded you of the events? No 07/03/2024 9:45 PM Dejah Alegria RN Been constantly on guard, watchful, or easily startled? No 07/03/2024 9:45 PM Dejah Holliday RN [place] numb or detached from people, activities, or your surroundings? No 07/03/2024 9:45 PM Dejah Alegria RN [place] guilty or unable to sto p blaming yourself or others for the events or any problems the events may have caused? No 07/03/2024 9:45 PM CDT Dejah Rodriguez RN * [place] Suicide Severity Rating Scale (Screener/Recent Self-Report) Question Answer Date of Assessment Author 1. Wish to be (Past 1 Month) No 025 9:08 PM CYNTHIAT Hawk Ruvalcaba RN 2. Non-Specific Active Suici fany Thoughts (Past 1 Month) No 07/01/2024 9:08 PM CDT Tremaine Ruvalcaba RN 6. Suicidal Behavior (Lifetime) No 9:08 PM CDT Hawk Ruvalcaba RN * Primary Care PTSD Score Question Answer Date of Assessment Author Primary Care PTSD Total Score 1 07/03/2024 9:45 PM CDT Dejah Rodriguez RN [facility]Mnurauf3489-77-11 15:53:57* Yesica Gonzalez MD - 07/08/2024 1:15 PM CDT Date of admission 06/30/2024 Date of Discharge No discharge date for patient encounter. Discharge Diagnosis Principal Problem: Closed nondisplaced fracture of second cervical vertebra, unspecified fracture morphology, initial encounter ([facility]) ([facility]) Active Problems: Traumatic subdural hematoma ([facility]) Type III fracture of odontoid process ([facility]) Ground-level fall Alzheimer's dementia ([facility]) Essential hypertension COPD (chronic obstructive pulmonary disease) ([facility]) Mixed hyperlipidemia Compression fracture of T3 vertebra ([facility]) Itching Resolved Problems: * No resolved hospital problems. * [facility] woman with Alzheimer's dementia and COPD fell and sustained an acute compression fractures of T1 and T3, acute C2 fracture (type III) complicated by subdural hemorrhage measuring 2.6 mm in thickness. Neurosurgery has recommended no surgical intervention, a [place] J collar at all times with close clinic follow up. Repeat CT brain is negative. Speech swallowing evaluation was done due to concerns of aspiration, Family declined FEES and preferred MBSS. Daughter verbalized patient to eat and drink despite risk for aspiration. With the closed cervical fracture, she is to follow up Neuro surgery and Neuro Trauma as indicated. WBC is slight ly elevated on 07/02. Patient remains afebrile. No source of infection, most likely reactive leukocytosis. Patient had optimized acute care medical therapy. She is ready for discharge to [facility] facility. Discharge recommendations were reviewed at length with the patient and family members, who verbalizes understanding, and agrees with current discharge plan. The patient's questions were answered to their satisfaction, and they will dcto SNF in stable condition. Pertinent Physical Exam At Time of Discharge Physical Exam: General: No acute distressHENT: Normocephalic; [place] J collar in place; negative rash Eyes: EOMI; no scleral icterus Cardiovascular: S1 and S2 distinct; no murmurs or rubs Pulmonary: Normal respiratory effort; LCTAB; no crackles, no wheezes, no rhonchi Abdominal: Soft and non-distended; non-tender to palpation; normoactive bowel sounds PV: 2+ DP pulses bilaterally; non-edematous BLE Skin: Warm and dry Neurological: CNII - CNXII grossly intact; follows commands Patient Condition at Discharge: Stable Discharge MedicationsNew acetaminophen (Tylenol) 500 MG tablet - 1,000 mg Every 8 hours PRN levETIRAcetam (Keppra) 500 MG tablet - 500 mg Every 12 hours scheduled lidocaine 4 % patch patch - 1 patch Daily oxyCODONE (Roxicodone) 5 MG immediate release tablet - 5 mg Every 4 hours PRN polyethylene glycol, PEG, 3350 (Miralax) 17 g packet - 17 g Daily ChangedMemantine HCl-Donepezil HCl 7-10 MG capsule sustained-release 24 hr - 1 capsule Daily - Dose changed from "1 tablet" to "1 capsule". StoppedamLODIPine-olmesartan (Shaneka) 5-20 MG tablet - 1 tablet Daily mirabegron ER (Myrbetriq) 50 MG 24 hr tablet - 50 mg Nightly traZODone (Desyrel) 100 MG tablet - 100 mg Nightly Continuedcetirizine (ZyrTEC) 10 MG tablet - 10 mg As needed escitalopram (Lexapro) 10 MG tablet - 10 mg Daily losartan (Cozaar) 50 MG tablet - 50 mg Daily montelukast (Singulair) 10 MG tablet - 10 mg Nightly omeprazole (PriLOSEC) [address] capsule - 40 mg Daily before breakfast pregabalin (Lyrica) 100 MG capsule - 100 mg Daily simvastatin (Zocor) 10 MG tablet - 10 mg Nightly Issues Requiring Follow-Up See AVS Discharge InstructionsSee AVS Outpatient Follow-UpSee AVS DispositionSNF-External [3] Time Spent on Kiehrcvtw49 minutes [id number] 15:53:57* Kingsley Rodney - 07/08/2024 1:40 PM CDT Functional Maintenance Patient Name: Rosita Ramirez Today's Date: 07/08/2024 ADLs Range of Motion: Mobility: RN requested Lift Team assistance. Pt was assisted to transfer from bedside chair B2B via SPT. Pt was safely left under care of RN. Comfort and Environment Interventions: Miscellaneous Devices: Vital Signs Kingsley Rosaectronically signed by Kingsley Rodney at 07/08/2024 2:47 PM CDT * Rox Marsh, SHIRLEY - 07/08/2024 10:04 AM CDT Physical Therapy Treatment Session Note Patient Name: Rosita Ramirez Today's Date: 07/08/2024 Preferred Language: Dominican Assessment & Plan Assessment: Patient performed bed mobility with assistance ranging Max A to Max A x 2, transfers with Min A x 2 and RW, and ambulated 20' using RW and Min A x 2 with chair follow. Patient will benefit from continued skilled therapy in order to increase functional mobility, strength, and endurance. Plan: Subjective "Walk straight. Walk straight." Precautions:Medical Precautions: Spinal Precautions - C2 fx, R parietal SDB, COPD, Alzheimer's dementia Braces Applied: Nathanael LAZO Pain:Pain Assessment: DVPRS (07/08/2024 10:04 AM) Pain Score: 10 (07/08/2024 6:21 AM) Pain Location: Neck (07/08/2024 10:04 AM) Skin Screening Assessment: Health Conditions Objective General Visit Information: PT Last Visit PT Received On: 07/08/24 - RN approved therapy.- Patient received supine with HOB elevated with Nathanael mann and family member present. Family member left to take personal items to vehicle at start of session. Patient agreeable to therapy. Lucrecia Lancaster present for assistance. - Please see below for functional mobility performed and level of assistance required. - Patient left sitting reclined in chair with call light and phone within reach and lap belt in place. Nathanael mann and pillows placed for comfort. - RN informed of session. Lift Team requested to assist patient back to bed in 2 hours (1230). Activity Tolerance: Cognition Treatment Therapeutic exercise: Therapeutic Exercise Activity 1: Performed BLE exercises x 10 repetitions each with AAROM: ankle pumps, hip abd/add Position 1: Seated (reclined) Bed Mobility: Bed Mobility 1:Level of Assistance 1: Substantial/Max assistance Bed Mobility Comments 1: Max A for log rolling in each direction for hilaria care and placement of new brief Bed Mobility To/From: Roll lying to left/Return to back, Roll lying to right/Return to back Assistive Devices And Adaptive Equipments: Head of bed elevated, Bed rail - Patient was found to have had a BM at start of session. Informed RN that patient still needed a new Purewick. Bed Mobility 2:Level of Assistance 2: Dependent Bed Mobility Comments 2: Max A x 2 to sit R side of bed, use of large chux pad to pivot/scoot pelvis Bed Mobility To/From: Supine to sit on EOB Assistive Devices And Adaptive Equipments: Head of bed elevated Transfers: Transfers 1:Level of Assistance 1: Partial/Mod assistance Trials/Comments 1: Min A x 2 from bed, to chair; requires verbal and tactile cues to fully release RW when transferring to sitting Transfer To/From: Vsj-zd-Bqbnq/Lwwes-xh-Egs, Bed, Chair Assistive Devices And Adaptive Equipments: Walker, front-wheeled Gait training: Gait Training Activity 1: Distance (enter in feet): 20 Gait Training Activity 1: Indoor surface Assistive Devices And Adaptive Equipments: Walker, front-wheeled Level of Assistance 1: Partial/Mod assistance Gait Training Activity 1 Comment: Min A x 2; improvement in step length and merlyn this date, demonstrating longer step length and faster merlyn, presents with multiple pauses, requring verbal cues to "keep walking straight" AM-PAC Basic Mobility:AM-PAC Basic Mobility Inpatient Turning in bed without bedrails: A Lot Lying on back to sitting on edge of flat bed: Total Bed to chair: A Lot Standing up from chair: A Lot Walk in room: A Lot Climbing 3-5 stairs: Total Mobility Inpatient Raw Score: 10 -HLM Goal: 4 Mobility: Highest Level of Mobility Performed (JH-HLM)-HLM Goal: 4 Modified Dime Box Patient Education: Education Documentation Physical Therapy Plan of Care, taught by Rox Marsh PTA at 07/08/2024 11:31 AM. Learner: Patient Readiness: Acceptance Method: Explanation Response: Verbalizes Understanding Physical Therapy Plan of Care, taught by Rox Marsh PTA at 07/07/2024 2:46 PM. Learner: Family, Patient Readiness: Acceptance Method: Explanation Response: Verbalizes Understanding Education CommentsNo comments found. Goals:Encounter Goals Encounter Goals (Active) Patient will progress bed mobility to improve functional independence. Start: 07/03/24 Expected End: 07/17/24 Patient will progress level surface transfers using stand pivot transfer using Min assistance and Min verbal cues. Start: 07/03/24 Expected End: 07/17/24 Patient will progress to ambulate on even surface using RW (chose assistive devices) 50 ft with Wilbert. Start: 07/03/24 Expected End: 07/17/24 Supervising Physical Therapist: Todd Dawson PT Patient progress towards current goals and plan of care was discussed in person with supervising Physical Therapist. Treatment Note: If this is the last documented treatment, then it will signify discharge from acute care prior to discharge from the therapy service and will serve as the discharge summary. Rox Marsh PTA * MIGUEL ANGEL Broussard - 07/07/2024 3:34 PM CDT Subjective No acute overnight events. Per qelvawih-wl-atl at bedside, patient with decreased appetite this morning. States that patient is itching around chest and neck where brace is. Objective Last Recorded Vitals Blood pressure 143/68, pulse 81, temperature 36.4 ?C (97.6 ?F), resp. rate 16, height 1.6 m (5' 2.99"), weight 45.4 kg (100 lb 1.4 oz), SpO2 93%. Physical Exam: General: No acute distress HENT: Normocephalic; Pilot [place] J collar in place; negative rash Eyes: EOMI; no scleral icterus Cardiovascular: S1 and S2 distinct; no murmurs or rubs Pulmonary: Normal respiratory effort; LCTAB; no crackles, no wheezes, no rhonchi Abdominal: Soft and non-distended; non-tender to palpation; normoactive bowel sounds PV: 2+ DP pulses bilaterally; non-edematous BLE Skin: Warm and dry Neurological: CNII - CNXII grossly intact; follows commands Current Active Medications Ensure Enlive, 1 Container, Oral, TID with meals escitalopram, 10 mg, Oral, Daily levETIRAcetam, 500 mg, Oral, q12h ISATU lidocaine, 1 patch, Apply externally, Daily losartan, 50 mg, Oral, Daily Memantine HCl-Donepezil HCl, 1 capsule, Oral, Daily [Held by provider] mirabegron ER, 50 mg, Oral, Nightly montelukast, 10 mg, Oral, Nightly polyethylene glycol (PEG) 3350, 17 g, Oral, Daily pregabalin, 100 mg, Oral, Daily simvastatin, 10 mg, Oral, Nightly sodium chloride, 10 mL, Intravenous, q12h ISATU PRN medications: acetaminophen, calamine-zinc oxide, ipratropium-albuterol, naloxone, ondansetron, oxyCODONE, oxyCODONE, sodium chloride Lab ResultsResults from last 7 days Lab Units 07/02/24 0320 07/01/24 0001 WBC 10*3/uL 12.96* 9.84 HEMOGLOBIN g/dL 11.6 11.2 HEMATOCRIT % 34.4 32.6* PLATELETS 10*3/uL 208 193 Results from last 7 daysLab Units 07/02/24 0320 07/01/24 0001 SODIUM mEq/L 139 143 POTASSIUM mEq/L 4.1 4.5 CHLORIDE mEq/L 101 109* CO2 mEq/L 26.4 27.4 BUN mg/dL 23 20 CREATININE mg/dL 1.04* 1.16* GLUCOSE mg/dL 91 99 CALCIUM mg/dL 9.2 9.0 Hernandez Ramirez is a 89 yo woman with medical history significant for Alzheimer's dementia, COPD, and HTN that fell out of her bed and sustained acute compression fractures of T1 and T3, acute C2 fracture (type III) complicated by subdural hemorrhage measuring 2.6 mm in thickness. Neurosurgery has recommended a [place] J collar at all times with close clinic follow up. Repeat CT brain is stable. Daughter is at bedside and understands risk of aspiration as delineated by ORDER PROCESSING SPECIALIST. Patient remains admitted pending SNF choice and acceptance. Assessment & Plan Type III fracture of odontoid process (HCC) [place] J collar at all times Pleasure feeds MMPR Bowel Regimen PT/OT Traumatic subdural hematoma (HCC) Repeat CT brain stable Follow-up with Dr. Hurley in NSGY clinic in 2 weeks Compression fracture of T3 vertebra (HCC) Acute compression fractures of T1, T3 Follow up with Dr Isaak Manning in 2 weeks with upright AP and lateral radiographs of the cervical spine Alzheimer's dementia (HCC) Continue Memantine/donepezil, escitalopram Essential hypertension Continue home losartan Blood pressure trending roughly at goal Continue to monitor COPD (chronic obstructive pulmonary disease) (HCC) Continue montelukast PRN Duonebs Mixed hyperlipidemia Continue Simvastatin Itching Patient with itching around her neck brace No rashes or lesions appreciated Calamine lotion VTE prophylaxis: Chemical prophylaxis held due to SDH; SCDs Disposition: Pending SNF choice and acceptanceCosigned by Yesica Gonzalez MD at 07/07/2024 4:20 PM CDT * Yesica Gonzalez MD - 07/07/2024 1:54 PM CDT [facility] Query Clarification Progress Note As related to the inpatient hospital stay starting on 07/01/2024, 8:37 PM. Would you please document clinical indicators supporting the documented diagnosis of Diabetes mellitus in the ED note 06/30? PROVIDER RESPONSE TEXT: Diabetes mellitus ruled out after further study Query Created By : Theodora Stein, 07/07/2024, 1:37 PM * Yesica Gonzalez MD - 07/07/2024 1:53 PM CDT [facility] Query Clarification Progress Note As related to the inpatient hospital stay starting on 07/01/2024, 8:37 PM. Can you further specify the (acuity and/or etiology) of the pulmonary edema you are treating, monitoring, and/or evaluating? PROVIDER RESPONSE TEXT: Acute non-cardiogenic pulmonary edema was present at the time of admission Query Created By : Theodora Stein, 07/07/2024, 1:44 PM * Kingsley Rodney - 07/07/2024 12:10 PM CDT Functional Maintenance Patient Name: Rosita Ramirez Today's Date: 07/07/2024 ADLs Range of Motion: Mobility: RN requested Lift Team assistance. Pt was assisted to transfer from bedside chair B2B via SPT. Pt was safely left under care of RN. Comfort and Environment Interventions: Miscellaneous Devices: Vital Signs Kingsley Rosaectronically signed by Kingsley Rodney at 07/07/2024 4:19 PM CDT * Rox Marsh PTA - 07/07/2024 10:02 AM CDT Physical Therapy Treatment Session Note Patient Name: Rosita Ramirez Today's Date: 07/07/2024 Preferred Language: Dominican Assessment & Plan Assessment: Patient performed bed mobility with Mod A x 2, transfers with Min A x 2 and RW, and ambulated 10' using RW and Min A x 2 with chair follow. Patient will benefit from continued skilled therapy in order to increase functional mobility, strength, and endurance. 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 Patient slightly holding onto [place] J as if it is uncomfortable but donned correctly. Patient agreeable to therapy. Tech Beatriz present for assistance. - Please see below for functional mobility performed and level of assistance required. - Of note, family requested to keep the appropriate sized RW (youth) which was ordered and present in room (second ordered RW taken out of room, RN reported it will be credited back). - Patient left sitting reclined in chair with call light and phone within reach and lap belt in place. [place] J donned, and family member present. Pillows placed for comfort. - RN informed of session. Lift Team requested to assist patient back to bed around 1220 (2 hours). Activity Tolerance: Cognition Treatment Therapeutic Exercise: Performed BLE heel slide x 10 repetitions each with AAROM while supine with HOB elevated. Bed Mobility: Bed Mobility 1:Level of Assistance 1: Substantial/Max assistance Bed Mobility Comments 1: Mod A x 2 to sit R side of bed, use of chux pad to pivot/scoot pelvis Bed Mobility To/From: Supine to sit on EOB Assistive Devices And Adaptive Equipments: Head of bed elevated, Bed rail Transfers: Transfers 1:Level of Assistance 1: Partial/Mod assistance Trials/Comments 1: Min A x 2 from bed, to chair Transfer To/From: Bgd-ku-Kkjbw/Ehlkz-jj-Dur, Bed, Chair Assistive Devices And Adaptive Equipments: Walker, front-wheeled Gait training: Gait Training Activity 1: Distance (enter in feet): 10 Gait Training Activity 1: Indoor surface Assistive Devices And Adaptive Equipments: Walker, front-wheeled Level of Assistance 1: Partial/Mod assistance Gait Training Activity 1 Comment: Min A x 2; difficulty with sequencing initially requiring tactile and verbal cues for weight shifting, requires assist with RW management, shuffling steps to slight step-through gait AM-PAC Basic Mobility:AM-PAC Basic Mobility Inpatient Turning in bed without bedrails: A Lot Lying on back to sitting on edge of flat bed: Total Bed to chair: A Lot Standing up from chair: A Lot Walk in room: A Lot Climbing 3-5 stairs: Total Mobility Inpatient Raw Score: 10 JH-HLM Goal: 4 Mobility: Highest Level of Mobility Performed (JH-HLM)-HLM Goal: 4 Modified Dime Box Patient Education: Education Documentation Physical Therapy Plan of Care, taught by Rox Marsh PTA at 07/07/2024 2:46 PM. Learner: Family, Patient Readiness: Acceptance Method: Explanation Response: Verbalizes Understanding Education CommentsNo comments found. Goals:Encounter Goals Encounter Goals (Active) Patient will progress bed mobility to improve functional independence. Start: 07/03/24 Expected End: 07/17/24 Patient will progress level surface transfers using stand pivot transfer using Min assistance and Min verbal cues. Start: 07/03/24 Expected End: 07/17/24 Patient will progress to ambulate on even surface using RW (chose assistive devices) 50 ft with Wilbert. Start: 07/03/24 Expected End: 07/17/24 Supervising Physical Therapist: Todd Dawson PT Patient progress towards current goals and plan of care was discussed in person with supervising Physical Therapist. Treatment Note: If this is the last documented treatment, then it will signify discharge from acute care prior to discharge from the therapy service and will serve as the discharge summary. Rox Marsh PTA * MIGUEL ANGEL Broussard - 07/06/2024 3:56 PM CDT Subjective No acute overnight events. Patient denies chest pain, shortness of breath, abdominal pain, N/V today. Objective Last Recorded Vitals Blood pressure 128/77, pulse 79, temperature 36.7 ?C (98 ?F), resp. rate 18, height 1.6 m (5' 2.99"), weight 45.4 kg (100 lb 1.4 oz), SpO2 94%. Physical Exam: General: No acute distress HENT: Normocephalic; Pilot [place] J collar in place Eyes: EOMI; no scleral icterus Cardiovascular: RRR; S1 and S2 distinct Pulmonary: Normal respiratory effort; LCTAB; no crackles, no wheezes, no rhonchi Abdominal: Soft and non-distended; non-tender to palpation; normoactive bowel sounds PV: 2+ DP pulses bilaterally; non-edematous BLE Skin: Warm and dry Neurological: Alert, pleasantly demented; follows commands Current Active Medications Ensure Enlive, 1 Container, Oral, TID with meals escitalopram, 10 mg, Oral, Daily levETIRAcetam, 500 mg, Oral, q12h ISATU lidocaine, 1 patch, Apply externally, Daily losartan, 50 mg, Oral, Daily Memantine HCl-Donepezil HCl, 1 capsule, Oral, Daily [Held by provider] mirabegron ER, 50 mg, Oral, Nightly montelukast, 10 mg, Oral, Nightly polyethylene glycol (PEG) 3350, 17 g, Oral, Daily pregabalin, 100 mg, Oral, Daily simvastatin, 10 mg, Oral, Nightly sodium chloride, 10 mL, Intravenous, q12h ISATU PRN medications: acetaminophen, ipratropium-albuterol, naloxone, ondansetron, oxyCODONE, oxyCODONE, sodium chloride Lab ResultsResults from last 7 days Lab Units 07/02/24 0320 07/01/24 0001 WBC 10*3/uL 12.96* 9.84 HEMOGLOBIN g/dL 11.6 11.2 HEMATOCRIT % 34.4 32.6* PLATELETS 10*3/uL 208 193 Results from last 7 daysLab Units 07/02/24 0320 07/01/24 0001 SODIUM mEq/L 139 143 POTASSIUM mEq/L 4.1 4.5 CHLORIDE mEq/L 101 109* CO2 mEq/L 26.4 27.4 BUN mg/dL 23 20 CREATININE mg/dL 1.04* 1.16* GLUCOSE mg/dL 91 99 CALCIUM mg/dL 9.2 9.0 AssessmentDelviviane Ramirez is a 89 yo woman with Alzheimer's dementia and COPD fell out of her bed and sustained acute compression fractures of T1 and T3, acute C2 fracture (type III) complicated by subdural hemorrhage measuring 2.6 mm in thickness. Neurosurgery has recommended a [place] J collar at all times with close clinic follow up. Repeat CT brain is stable. Daughter is at bedside and understands risk of aspiration as delineated by ORDER PROCESSING SPECIALIST. Patient family electing for SNF placement. Have contacted on-call sw for snf choices and auth,. Assessment & Plan Type III fracture of odontoid process (HCC) [place] J collar at all times Pleasure feeds Traumatic subdural hematoma (HCC) Repeat CT brain stable Follow-up with Dr. Hurley in NSGY clinic in 2 weeks Compression fracture of T3 vertebra (HCC) Acute compression fractures of T1, T3 Follow up with Dr Isaak Manning in 2 weeks with upright AP and lateral radiographs of the cervical spine Alzheimer's dementia (HCC) Continue Memantine/donepezil, escitalopram Essential hypertension Continue home losartan Blood pressures trending roughly at goal Continue to monitor COPD (chronic obstructive pulmonary disease) (HCC) Continue montelukast PRN Duonebs Mixed hyperlipidemia Continue Simvastatin VTE prophylaxis: Chemical prophylaxis held to due to sdh; scds Disposition: Medically clear; family electing for SNF instead of HHHCosigned by Yesica Gonzalez MD at 07/06/2024 5:31 PM CDT * Arely Sandra LCSW - 07/06/2024 1:52 PM CDT 07/06/24 1300 Discharge Planning Patient expects to be discharged to: SNF Expected Discharge Disposition SNF Discharge Planning Comments Weekend SW informed by primary team daughter is now seeking SNF placement vs home with HH. SW spoke with daughter Christina to provide education and SNF list. Daughter is seeking SNF closes to [place], list emailed to [email or web address] and referrals sent. (Arely Sandra LCSW-[facility], [id number]) Discharge Planning Status In Progress * Mariaelena Mame, PT - 07/05/2024 4:22 PM CDT Treatment Session Note Patient Name: Rosita Ramirez Today's Date: 07/05/2024 Preferred Language: Dominican Assessment & Plan Assessment: Family training cont, pt's daughter requested additional PT session for family training Plan: Continue with plan of care / family training Subjective Current Problem: Impaired functional mobility, balance, endurance and gait Precautions: UE Weight Bearing Status: FWB LE Weight Bearing Status: FWB Medical Precautions: spinal, standard, fall Braces Applied: NATHANAEL Beard Pain: 07/24 Objective General Visit Information: PT Last Visit PT Received On: 07/05/24 General Family/Caregiver Present: Yes Others Present: daughter in law Activity Tolerance:Endurance: Tolerates 10 - 20 min exercise with multiple rests Sitting Balance: Supports self with more than 50% effort using upper extremity, requires therapist assistance CognitionOverall Cognitive Status: Impaired Behavior/Cognition: Cooperative (awake) Arousal/Alertness: Delayed responses to stimuli Orientation Level: Disoriented to situation, Disoriented to time, Disoriented to place Following Commands: Follows 1 step commands with repetition Treatment Chart review, RN ok'd PT sessionPt found supine in bed, on RA, MJ brace on, VSS, pt agreed to PT session, daughter in law present Supine / sitting B LE warm up ex Sitting balance activities SPT from bed to recliner chair Mod A SEWER PIPE SORTER via bear hug and daughter in law assistance Post PT session pt left sitting in recliner chair, B LE elevated, safety belt donned, all needs met no s/sx of distress, VSS, daughter in law in room RN updated on pt's functional level and PT recommendations, RN will call LT to assist pt with transfer BTB Therapeutic activity:Therapeutic Activity Therapeutic Activity Time Entry: 33 Bed Mobility: Bed Mobility 1:Level of Assistance 1: (Mod A and daughter in law assistance) Bed Mobility To/From: Supine to sit on EOB Transfers: Transfers 1: Level of Assistance 1: (Mod A) Transfer To/From: Pov-be-Ohaln/Dfeeb-yv-Kjs Assistive Devices And Adaptive Equipments: (SEWER PIPE SORTER via bear hug and daughter in law assistance) Transfers 2:Technique 2: Stand pivot Level of Assistance 2: (Mod A) Transfer To/From: Bed, Recliner Assistive Devices And Adaptive Equipments: (SEWER PIPE SORTER via bear hug and daughter in law assistance) Outcome Measures: AM-PAC Basic Mobility:AM-PAC Basic Mobility Inpatient Turning in bed without bedrails: A Lot Lying on back to sitting on edge of flat bed: A Lot Bed to chair: A Lot Standing up from chair: A Lot Walk in room: Total Climbing 3-5 stairs: Total Mobility Inpatient Raw Score: 10 -HLM Goal: 4 Mobility: Highest Level of Mobility Performed (-HLM)-HL Goal: 4 Patient Education:Education Documentation No documentation found. Education Comments No comments found. Goals:Encounter Goals Encounter Goals (Active) Patient will progress bed mobility to improve functional independence. Start: 07/03/24 Expected End: 07/17/24 Patient will progress level surface transfers using stand pivot transfer using Min assistance and Min verbal cues. Start: 07/03/24 Expected End: 07/17/24 Patient will progress to ambulate on even surface using RW (chose assistive devices) 50 ft with Wilbert. Start: 07/03/24 Expected End: 07/17/24 Treatment Note: If this is the last documented treatment, then it will signify discharge from acute care prior to discharge from the therapy service and will serve as the discharge summary. Mariaelena Vilchis PT, DPT, MS, CCS * MIGUEL ANGEL Broussard - 07/05/2024 11:49 AM CDT Subjective No acute overnight events. Family at bedside. Patient denies chest pain, shortness of breath, abdominal pain, N/V. Endorses head and neck pain. Objective Last Recorded Vitals Blood pressure (!) 167/95, pulse 73, temperature 37.5 ?C (99.5 ?F), resp. rate 18, height 1.6 m (5' 2.99"), weight 45.4 kg (100 lb 1.4 oz), SpO2 93%. Physical Exam: General: Patient hard of hearing; No acute distress HENT: Normocephalic; Pilot [place] J collar in place Eyes: EOMI; no scleral icterus Cardiovascular: S1 and S2 distinct; no murmurs or rubs Pulmonary: Normal respiratory effort; LCTAB; no crackles, no wheezes, no rhonchi Abdominal: Soft and non-distended; non-tender to palpation; normoactive bowel sounds PV: 2+ DP pulses bilaterally; non-edematous BLE Skin: Warm and dry Neurological: Alert; follows commands; CNII - CNXII grossly intact Psych: Normal mood and affect Current Active Medications Ensure Enlive, 1 Container, Oral, TID with meals escitalopram, 10 mg, Oral, Daily levETIRAcetam, 500 mg, Oral, q12h ISATU lidocaine, 1 patch, Apply externally, Daily losartan, 50 mg, Oral, Daily Memantine HCl-Donepezil HCl, 1 capsule, Oral, Daily [Held by provider] mirabegron ER, 50 mg, Oral, Nightly montelukast, 10 mg, Oral, Nightly polyethylene glycol (PEG) 3350, 17 g, Oral, Daily pregabalin, 100 mg, Oral, Daily simvastatin, 10 mg, Oral, Nightly sodium chloride, 10 mL, Intravenous, q12h ISATU PRN medications: acetaminophen, ipratropium-albuterol, naloxone, ondansetron, oxyCODONE, oxyCODONE, sodium chloride Lab ResultsResults from last 7 days Lab Units 07/02/24 0320 07/01/24 0001 WBC 10*3/uL 12.96* 9.84 HEMOGLOBIN g/dL 11.6 11.2 HEMATOCRIT % 34.4 32.6* PLATELETS 10*3/uL 208 193 Results from last 7 daysLab Units 07/02/24 0320 07/01/24 0001 SODIUM mEq/L 139 143 POTASSIUM mEq/L 4.1 4.5 CHLORIDE mEq/L 101 109* CO2 mEq/L 26.4 27.4 BUN mg/dL 23 20 CREATININE mg/dL 1.04* 1.16* GLUCOSE mg/dL 91 99 CALCIUM mg/dL 9.2 9.0 AssessmentDelia Block is a 89 yo woman with Alzheimer's dementia and COPD fell out of her bed and sustained acute compression fractures of T1 and T3, acute C2 fracture (type III) complicated by subdural hemorrhage measuring 2.6 mm in thickness. Neurosurgery has recommended a [place] J collar at all times with close clinic follow up. Repeat CT brain is stable. Daughter is at bedside and understands risk of aspiration as delineated by ORDER PROCESSING SPECIALIST. Patient remains admitted for continued PT/OT before discharging to home w/ . Assessment & Plan Type III fracture of odontoid process (HCC) [place] J collar at all times Pleasure feeds Traumatic subdural hematoma (HCC) Repeat CT brain stable Follow-up with Dr. Hurley in NSGY clinic in 2 weeks Compression fracture of T3 vertebra (HCC) Acute compression fractures of T1, T3 Follow up with Dr Isaak Manning in 2 weeks with upright AP and lateral radiographs of the cervical spine Alzheimer's dementia (HCC) Continue Memantine/donepezil, escitalopram Daughter at bedside today Essential hypertension Continue home losartan HTN possibly related to vascular stiffness, as BP reads taken while supine Continue to monitor COPD (chronic obstructive pulmonary disease) (HCC) Continue montelukast PRN Duonebs Mixed hyperlipidemia Continue Simvastatin VTE prophylaxis: Chemical Prophylaxis held due to subdural hematoma; SCDs Disposition: Continue PT/OT and likely discharge to w/ on Sunday or Sunday Cosigned by Yesica Gonzalez MD at 07/06/2024 11:01 AM CDT * Gama Alaniz - 07/04/2024 3:35 PM CDT Functional Maintenance Mobility: RN requested Lift Team assistance. Pt was assisted to transfer from bedsidechair B2B via SPT. Pt was safely left under care of RN. Gama Alexandralectronically signed by Gama Alaniz at 07/04/2024 6:21 PM CDT * Christy Costello PT - 07/04/2024 2:51 PM CDT Physical Therapy Treatment Session Note Patient Name: Rosita Ramirez Today's Date: 07/04/2024 Preferred Language: Dominican Assessment & Plan Min/CGA assist with OOB with able to take steps to recliner Pt will have son and DIL to assist on DC home, PT WILL NOT REQUIRE PT CLEARANCE FOR DC HOME WITH FAMILY TO ASSIST. PT will follow while inhouse to prevent debility DME: RW -PT placed order Assessment: Prognosis: Good Barriers to Discharge: Medical diagnosis Evaluation/Treatment Tolerance: Patient tolerated treatment well Medical Staff Made Aware: Yes Strengths: Ability to acquire knowledge Plan: Treatment Plan/Goals Established with Patient/Caregiver: Yes Treatment/Interventions: Bed mobility training, Caregiver training, Equipment training, Functional activities, Gait training, Pain management, Patient education, Posture/Body mechanics baring, Therapeutic exercises, Transfer training, Wheelchair assessment and management PT Plan: Skilled PT PT Frequency: PRN until discharge Equipment Recommended: Walker- rolling Subjective Let me do it" Current Problem: Patient Active Problem List Diagnosis Ground-level fall Alzheimer's dementia (HCC) Essential hypertension COPD (chronic obstructive pulmonary disease) ([facility]) Mixed hyperlipidemia Compression fracture of T3 vertebra ([facility]) Traumatic subdural hematoma ([facility]) Type III fracture of odontoid process ([facility]) Closed nondisplaced fracture of second cervical vertebra, unspecified fracture morphology, initial encounter (CMS/HCC) ([facility]) Precautions: UE Weight Bearing Status: FWB LE Weight Bearing Status: FWB Medical Precautions: spinal, standard, fall Braces Applied: NATHANAEL Beard Pain:06/23 ObjectiveGeneral Visit Information: Pt was seen supine in bed with DIL at bedside, pt was seen with min assist with bed mobility with caregiver, able to transfer to recliner, pt was left seated on recliner with KASSY LE in elevation, lap belt donned for positioning, NAD on PT exit DIL at bedside, CB and needs in reach RN to assist BTB in ~ 2 hours PT Last VisitPT Received On: 07/04/24 GeneralFamily/Caregiver Present: Yes Others Present: DIL Activity Tolerance:Endurance: Tolerates less than 10 min exercise, no significant change in vital signs Sitting Balance: Supports self with one upper extremity Early Mobility/Exercise Safety Screen: Proceed with mobilization - No exclusion criteria met CognitionOrientation Level: Oriented X4 TreatmentTherapeutic exercise: Therapeutic Exercise Activity 1: AROM for KASSY LE Position 1: Seated Therapeutic activity: Bed Mobility: Bed Mobility 1: Level of Assistance 1: Supervision/touching assistance, Partial/Mod assistance (DIL to assist, educated) Bed Mobility Comments 1: via log roll Bed Mobility To/From: Roll lying on back to right, Supine to sit on EOB Assistive Devices And Adaptive Equipments: No device Transfers: Transfers 1: Technique 1: Stand step Level of Assistance 1: Supervision/touching assistance (SEWER PIPE SORTER) Trials/Comments 1: DIL able t assist with mobility as needed Transfer To/From: Recliner, Vdo-zq-Gwdlk/Kybbc-ek-Neh Assistive Devices And Adaptive Equipments: No device (simulated RW for home) AM-PAC Basic Mobility:AM-PAC Basic Mobility Inpatient Turning in bed without bedrails: A Little Lying on back to sitting on edge of flat bed: A Little Bed to chair: None Standing up from chair: None Walk in room: A Little Climbing 3-5 stairs: A Little Mobility Inpatient Raw Score: 20 JH-HLM Goal: 6 Mobility: Highest Level of Mobility Performed (JH-HLM)JH-HLM Goal: 6 Highest Level of Mobility Performed (JH-HLM): Static standing (1 or more minutes) Patient Education:Education Documentation No documentation found. Education Comments No comments found. Goals:Encounter Goals Encounter Goals (Active) Patient will progress bed mobility to improve functional independence. Start: 07/03/24 Expected End: 07/17/24 Patient will progress level surface transfers using stand pivot transfer using Min assistance and Min verbal cues. Start: 07/03/24 Expected End: 07/17/24 Patient will progress to ambulate on even surface using RW (chose assistive devices) 50 ft with Wilbert. Start: 07/03/24 Expected End: 07/17/24 Treatment Note: If this is the last documented treatment, then it will signify discharge from acute care prior to discharge from the therapy service and will serve as the discharge summary. Christy Costello PT * Yesica Gonzalez MD - 07/04/2024 2:24 PM CDT Subjective Happy to be in a room. Denies dyspnea and cough. Objective Last Recorded Vitals Blood pressure 154/81, pulse 82, temperature 36.8 ?C (98.2 ?F), resp. rate 14, height 1.6 m (5' 2.99"), weight 45.4 kg (100 lb 1.4 oz), SpO2 91%. Intake/Output Summary (Last 24 hours) at 07/04/2024 1424 Last data filed at 07/04/2024 0600 Gross per 24 hour Intake -- Output 400 ml Net -400 ml Physical Exam: Constitutional: General: She is not in acute distress. Appearance: She is not ill-appearing. HENT: Head: Comments: Pilot [place] J collar on Cardiovascular: Rate and Rhythm: Normal rate. Pulses: Normal pulses. Heart sounds: Normal heart sounds. Pulmonary: Effort: Pulmonary effort is normal. Abdominal: General: Bowel sounds are normal. Palpations: Abdomen is soft. Skin: General: Skin is warm and dry. Neurological: Mental Status: She is alert and oriented to person, place, and time. Psychiatric: Mood and Affect: Mood normal. Current Active Medications Ensure Enlive, 1 Container, Oral, TID with meals escitalopram, 10 mg, Oral, Daily levETIRAcetam, 500 mg, Oral, BID lidocaine, 1 patch, Apply externally, Daily [Held by provider] losartan, 50 mg, Oral, Daily Memantine HCl-Donepezil HCl, 1 capsule, Oral, Daily mirabegron ER, 50 mg, Oral, Nightly montelukast, 10 mg, Oral, Nightly polyethylene glycol (PEG) 3350, 17 g, Oral, Daily pregabalin, 100 mg, Oral, Daily simvastatin, 10 mg, Oral, Nightly sodium chloride, 10 mL, Intravenous, q12h ISATU PRN medications: acetaminophen, ipratropium-albuterol, naloxone, ondansetron, oxyCODONE, oxyCODONE, sodium chloride Lab ResultsResults from last 7 days Lab Units 07/02/24 0320 07/01/24 0001 WBC 10*3/uL 12.96* 9.84 HEMOGLOBIN g/dL 11.6 11.2 HEMATOCRIT % 34.4 32.6* PLATELETS 10*3/uL 208 193 Results from last 7 daysLab Units 07/02/24 0320 07/01/24 0001 SODIUM mEq/L 139 143 POTASSIUM mEq/L 4.1 4.5 CHLORIDE mEq/L 101 109* CO2 mEq/L 26.4 27.4 BUN mg/dL 23 20 CREATININE mg/dL 1.04* 1.16* GLUCOSE mg/dL 91 99 CALCIUM mg/dL 9.2 9.0 [id number] yo woman with Alzheimer's dementia and COPD fell and sustained an acute compression fractures of T1 and T3, acute C2 fracture (type III) complicated by subdural hemorrhage measuring 2.6 mm in thickness. Neurosurgery has recommended a [place] J collar at all times with close clinic follow up. Repeat CT brain is pending to assess stability. Daughter is at bedside feeding patient; she understands risk of aspiration as delineated by ORDER PROCESSING SPECIALIST. Patient tolerated PT and will require more sessions before being cleared to discharge home. I have also asked therapy to detail list of appropriate DME. Assessment & PlanType III fracture of odontoid process (HCC) [place] J collar at all times Pleasure feeds Traumatic subdural hematoma (HCC) Repeat CT brain stable. Compression fracture of T3 vertebra (HCC) Acute compression fractures of T1, T3 Follow up with Dr Isaak Manning in 2 weeks with upright AP and lateral radiographs of the cervical spine Alzheimer's dementia (HCC) memantine/donepezil, escitalopram, trazodone Daughter at bedside Essential hypertension Resume home losartan COPD (chronic obstructive pulmonary disease) (HCC) Prn duroneb montelukast Mixed hyperlipidemia simvastatin VTE prophylaxis: This patient does not have an active medication from one ofthe medication groupers. Full CodeDisposition: Home with Home Health, likely Sunday or Sunday * LIO Ceballos-ORDER PROCESSING SPECIALIST - 07/03/2024 3:24 PM CDT Images from the original note were not included. [facility] [place] ORDER PROCESSING SPECIALIST DYSPHAGIA TREATMENT Patient Name: Rosita Ramirez Today's Date: 07/03/2024 Time In: 1503 Time Out: 1523 Room: [facility] IMPRESSIONS: Pt and dtr-in-law approached to discuss results from MBSS on 07/02. ST provided extensive education on swallow physiology, pathophysiologies per MBSS, aspiration pneumonia, and strategies for reducing risk (e.g., sitting upright, strict oral care, water only). Pt's dtr-in-law agreeable to education and verbalized desire for pt to eat and drink with known risk of developing aspiration pneumonia. Recommend minced/moist consistencies (baseline diet) and thin liquids w/ known risk for developing aspiration. Will f/u for dysphagia management. RECOMMENDATIONS: Diet Recommendations: Minced and moist and thin liquids w/ known risk for developing aspiration pneumonia. Medications: As tolerated [place] aspiration precautions Supervision Recommended: Close supervision Oral care: Regular toothbrush , Every 6 hours Will f/u for dysphagia management PROGNOSIS: Fair PLAN: Treatment/Interventions: Swallow function Frequency: 1-2 times per week GENERAL INFORMATION: Oxygenation: 2L of 02 via nasal cannula Behavior:Cooperative Level of Consciousness: Awake & alert Pain: Pain Assessment: 0-10 Pain Score: 0 Diet Prior to this Treatment: Level 0- Thin Liquids and Level 7- Regular diet Preferred Language: Dominican TREATMENT SUMMARY: Swallow Activities: Family Education OUTCOME MEASURES: International Dysphagia Diet Standardization Initiative - IDDSI Solids - 5 - Minced & Moist Liquids - 0 - Thin IDDSI Level - 6 GOALS: Encounter Goals Encounter Goals (Active) STG - Participate in an instrumental swallow study (Progressing) Start: 07/02/24 Expected End: 07/09/24 LTG - Caregiver will demonstrate understanding of safe feeding techniques Start: 07/03/24 Expected End: 07/10/24 LTG - Direct and/or complete oral care to reduce risk of pulmonary complications Start: 07/03/24 Expected End: 07/10/24 STG - Generalize eating skills to other environments Start: 07/03/24 Expected End: 07/10/24 Patient Education:Education Documentation Dietary Recommendations, taught by LIO Ceballos-LONI at 07/03/2024 2:34 PM. Learner: Family Readiness: Acceptance Method: Explanation Response: Verbalizes Understanding Swallowing Strategies, taught by EZ Ceballos at 07/03/2024 2:34 PM. Learner: Family Readiness: Acceptance Method: Explanation Response: Verbalizes Understanding Speech-Language/Pathology Treatment Plan, taught by EZ Ceballos at 07/03/2024 2:34 PM. Learner: Family Readiness: Acceptance Method: Explanation Response: Verbalizes Understanding Results of Exam, taught by EZ Ceballos at 07/03/2024 2:34 PM.Learner: Family Readiness: Acceptance Method: Explanation Response: Verbalizes Understanding Education CommentsNo comments found. If this is the last documented treatment, then it will signify discharge from acute care prior to discharge from the therapy service and will serve as the discharge summary. Therapy discharge recommendations are made by determining the patient's prior level of function, assessing current function level and establishing rehab potential. The overall discharge plan may be affected by input from Physicians, Care Coordination, medical condition/status, family support and insurance benefits. EZ Ceballos * Yesica Gonzalez MD - 07/03/2024 1:25 PM CDT Subjective Pain is controlled. Denies dyspnea. Daughter is feeding patient at bedside. Objective Last Recorded Vitals Blood pressure 140/86, pulse 78, temperature 36.9 ?C (98.4 ?F), temperature source Oral, resp. rate (!) 26, height 1.6 m (5' 2.99"), weight 45.4 kg (100 lb 1.4 oz), SpO2 96%. No intake or output data in the 24 hours ending 07/03/24 1325 Physical Exam: Constitutional: General: She is not in acute distress. Appearance: She is not ill-appearing. HENT: Head: Comments: [place] J collar on Cardiovascular: Rate and Rhythm: Normal rate. Pulses: Normal pulses. Heart sounds: Normal heart sounds. Pulmonary: Effort: Pulmonary effort is normal. Abdominal: General: Bowel sounds are normal. Palpations: Abdomen is soft. Skin: General: Skin is warm and dry. Neurological: Mental Status: She is alert and oriented to person, place, and time. Psychiatric: Mood and Affect: Mood normal. Current Active Medications escitalopram, 10 mg, Oral, Daily levETIRAcetam, 500 mg, Oral, BID lidocaine, 1 patch, Apply externally, Daily [Held by provider] losartan, 50 mg, Oral, Daily Memantine HCl-Donepezil HCl, 1 capsule, Oral, Daily mirabegron ER, 50 mg, Oral, Nightly montelukast, 10 mg, Oral, Nightly polyethylene glycol (PEG) 3350, 17 g, Oral, Daily pregabalin, 100 mg, Oral, Daily simvastatin, 10 mg, Oral, Nightly sodium chloride, 10 mL, Intravenous, q12h ISATU PRN medications: acetaminophen, ipratropium-albuterol, naloxone, ondansetron, oxyCODONE, oxyCODONE, sodium chloride Lab ResultsResults from last 7 days Lab Units 07/02/24 0320 07/01/24 0001 WBC 10*3/uL 12.96* 9.84 HEMOGLOBIN g/dL 11.6 11.2 HEMATOCRIT % 34.4 32.6* PLATELETS 10*3/uL 208 193 Results from last 7 daysLab Units 07/02/24 0320 07/01/24 0001 SODIUM mEq/L 139 143 POTASSIUM mEq/L 4.1 4.5 CHLORIDE mEq/L 101 109* CO2 mEq/L 26.4 27.4 BUN mg/dL 23 20 CREATININE mg/dL 1.04* 1.16* GLUCOSE mg/dL 91 99 CALCIUM mg/dL 9.2 9.0 Adlijiqekb2 yo woman with Alzheimer's dementia and COPD fell and sustained an acute compression fractures of T1 and T3, acute C2 fracture (type III) complicated by subdural hemorrhage measuring 2.6 mm in thickness. Neurosurgery has recommended a [place] J collar at all times with close clinic follow up. Repeat CT brain is pending to assess stability. Daughter is at bedside feeding patient; she understands risk of aspiration as delineated by ORDER PROCESSING SPECIALIST. Patient stood with PT today and will require 2-3 more sessions before discharge home with home health. Assessment & PlanType III fracture of odontoid process (HCC) [place] J collar at all times Pleasure feeds Traumatic subdural hematoma (HCC) I don't have formal report of original CT brain Repeat CT brain stable. Hold VTE prophylaxis for now Compression fracture of T3 vertebra (HCC) Acute compression fractures of T1, T3 Follow up with Dr Isaak Manning in 2 weeks with upright AP and lateral radiographs of the cervical spine Alzheimer's dementia ([facility]) memantine/donepezil, escitalopram, trazodone Daughter at bedside Essential hypertension Resume home losartan if elevated BP persists after pain control COPD (chronic obstructive pulmonary disease) (HCC) Prn duroneb montelukast Mixed hyperlipidemia simvastatin VTE prophylaxis: This patient does not have an active medication from one ofthe medication groupers. Full CodeDisposition: Home with Home Health in 2 days * Rayray Gonzalez, PT - 07/03/2024 10:15 AM CDT Physical Therapy Evaluation and Treatment Note Patient Name: Rosita Ramirez Today's Date: 07/03/2024 Preferred Language: Dominican Assessment & Plan Assessment: PT Assessment: Patient is progressing with PT services; PT will continue to follow and progress as tolerated. Prognosis: Fair Evaluation/Treatment Tolerance: Patient tolerated treatment well Strengths: Support of extended family/friends From functional standpoint, once medically cleared by MD, anticipate patient safe to return to prior living environment with continued assistance from family; she has great family support and is able to provide 24hr care. Home health PT recommended. While in acute setting, PT will continue to follow to prevent deconditioning; this will allow for a more functional discharge. Currently recommending she receives a WC w/ accessories in order to allow for a safe discharge; she was unable to complete household ambulation during PT visit. Plan: Treatment Plan/Goals Established with Patient/Caregiver: Yes Treatment/Interventions: Functional activities, Gait training, Therapeutic exercises PT Plan: Skilled PT PT Frequency: PRN until discharge Equipment Recommended: Wheelchair- accessories Subjective Patient agreed to visit. Current Problem: Per EMR 89 yo woman with Alzheimer's dementia and COPD fell and sustained an acute compression fractures of T1 and T3, acute C2 fracture (type III) complicated by subdural hemorrhage measuring 2.6 mm in thickness. Neurosurgery has recommended a [place] J collar at all times with close clinic follow up. Repeat CT brain is pending to assess stability. Speech therapy evaluation is ordered to assess for acute dysphagia with neck injury. Daughter is at bedside and has been updated in person. Pain: Cervical pain reported Vital Signs: Patient Vitals for the past 24 hrs: BP MAP (mmHg) Pulse Resp SpO2 07/03/24 0545 140/86 -- 78 (!) 26 96 % 07/02/24 2035 136/90 -- 72 20 98 % 07/02/24 1600 135/88 (!) 104 66 20 100 % Prior Level of Function: Level of [place]: Household ambulation Receives Help From: Family Objective General Visit Information: Precautions: Braces Applied: rigid cervical collar donned Cognition: Orientation Level: Oriented X4 General Assessments: Activity Tolerance Activity Tolerance Endurance: Tolerates 10 - 20 min exercise with multiple rests Sitting Balance: Supports self with one upper extremity Balance- Sitting Static Sitting-Balance Support: Right upper extremity supported, Left upper extremity supported Level of Assistance: Setup/clean up assistance Balance- Standing Static Standing-Balance Support: Left upper extremity supported, Right upper extremity supported Static Standing-Level of Assistance: Partial/Mod assistance Functional Assessments: Bed Mobility Bed Mobility 1: Level of Assistance 1: Partial/Mod assistance Bed Mobility To/From: Roll lying on back to left, Roll lying on back to right, Sitting EOB to supine, Supine to sit on EOB Assistive Devices And Adaptive Equipments: Bed rail Transfers Transfers 1:Level of Assistance 1: Partial/Mod assistance Transfer To/From: [id number]/[id number] Assistive Devices And Adaptive Equipments: Walker, front-wheeled Activity Tolerance:Endurance: Tolerates 10 - 20 min exercise with multiple rests Sitting Balance: Supports self with one upper extremity CognitionOrientation Level: Oriented X4 Treatment Therapeutic activity:Therapeutic Activity Therapeutic Activity Time Entry: 10 Therapeutic Activity 1: bed mobility Therapeutic Activity 2: transfer Therapeutic Activity 3: seated activities Therapeutic Activity 4: standing w/ RW Bed Mobility: Bed Mobility 1:Level of Assistance 1: Partial/Mod assistance Bed Mobility To/From: Roll lying on back to left, Roll lying on back to right, Sitting EOB to supine, Supine to sit on EOB Assistive Devices And Adaptive Equipments: Bed rail Transfers: Transfers 1:Level of Assistance 1: Partial/Mod assistance Transfer To/From: [id number]-Cxbwo/Uvtag-[id number]-Lzo Assistive Devices And Adaptive Equipments: Walker, front-wheeled AM-PAC Basic Mobility:Turning in bed without bedrails: A Lot Lying on back to sitting on edge of flat bed: A Lot Bed to chair: A Lot Standing up from chair: A Lot Walk in room: A Lot Climbing 3-5 stairs: Total Mobility Inpatient Raw Score: 11 -HLM Goal: 4 Patient Education: Education Documentation Physical Therapy Plan of Care, taught by Rayray Gonzalez PT at 07/03/2024 2:28 PM. Learner: Family, Patient Readiness: Eager Method: Explanation Response: Verbalizes Understanding Dietary Recommendations, taught by Rayray Gonzalez PT at 07/03/2024 2:28 PM. Learner: Family, Patient Readiness: Eager Method: Explanation Response: Verbalizes Understanding Swallowing Strategies, taught by Rayray Gonzalez PT at 07/03/2024 2:28 PM. Learner: Family, Patient Readiness: Eager Method: Explanation Response: Verbalizes Understanding Speech-Language/Pathology Treatment Plan, taught by Rayray Gonzalez PT at 07/03/2024 2:28 PM. Learner: Family, Patient Readiness: Eager Method: Explanation Response: Verbalizes Understanding Results of Exam, taught by Raryay Gonzalez PT at 07/03/2024 2:28 PM.Learner: Family, Patient Readiness: Eager Method: Explanation Response: Verbalizes Understanding Education CommentsNo comments found. Goal:Encounter Goals Encounter Goals (Active) Patient will progress bed mobility to improve functional independence. Start: 07/03/24 Expected End: 07/17/24 Patient will progress level surface transfers using stand pivot transfer using Min assistance and Min verbal cues. Start: 07/03/24 Expected End: 07/17/24 Patient will progress to ambulate on even surface using RW (chose assistive devices) 50 ft with [place]bert. Start: 07/03/24 Expected End: 07/17/24 Treatment Note: If this is the last documented treatment, then it will signify discharge from acute care prior to discharge from the therapy service and will serve as the discharge summary. Rayray Gonzalez PT * LIO Ceballos-ORDER PROCESSING SPECIALIST - 07/02/2024 1:43 PM CDT Images from the original note were not included. [facility] ORDER PROCESSING SPECIALIST MODIFIED BARIUM SWALLOW STUDY (MBSS) Patient Name: Rosita Ramirez Today's Date: 07/02/2024 Time In: 1313 Time Out: 1343 Room: 02/02 MBSS EVALUATION SUMMARY: Pt presents with moderate oropharyngeal dysphagia per MBSS. Etiology consistent with type II dens fracture. Prognosis is guarded given pt's advanced age and deconditioning and fraility. Recommend GOC discussion regarding intermediate card tender nutrition and hydration. If family chooses to initiate diet w/ known risk of aspiration, recommend baseline diet (e.g., minced and moist w/ thin liquids. Pt provided PO trials of thin liquids (via spoon, cup, and straw), mildly thick liquids (via straw), puree, minced and moist consistencies, and soft solids. Oral phase c/b reduced orolingual control resulting in prolonged A-P transit and reduced bolus cohesion. Pharyngeal phase c/b onset of the pharyngeal swallow at the pyriform sinuses, impaired anterior hyolaryngeal complex movement, poor laryngeal vestibule closure, reduced epiglottic deflection, & reduced upper esophageal sphincter opening. Additionally, pt w/ poor pharyngeal constriction resulting in prolonged transit of puree, minced and moist solids, and soft solids through hypopharynx. Collective these impairments resulted in consistent laryngeal penetration midway to the folds w/ all liquids. Intermittent penetration to the vocal folds with thin liquids (via spoon) and mildly thick liquids (via straw) x2, which would likely migrate to trachea over time. Additionally, pt w/ silent aspiration of thin liquids via straw x2. Moderate vallecula and pyriform sinus residue observed w/ trace thin liquid residue on arytenoid. Pt w/ x1 instance of penetration of pyriform sinus residue tto the vocal folds via arytenoid. No sensory response. RECOMMENDATIONS: Diet Recommendations: Recomment GOC discussion re: longterm souce of nutriton and hydration. If family chooses to initiate diet w/ known risk of aspiration, recommend baseline diet (e.g., minced and moist w/ thin liquids. Medications: As tolerated [place] aspiration precautions. Supervision Recommended: Close supervision Oral care: Regular toothbrush , Every 6 hours Will f/u for dysphagia management as indicated PROGNOSIS: Fair PLAN: Treatment/Interventions: Swallow function Frequency: 1-2 times per week GENERAL INFORMATION: Reason for Consult: Pt was referred for a MBSS evaluation in the setting of suspected pharyngeal dysphagia Oxygenation: 2L of 02 via nasal cannula Behavior:Cooperative Level of Consciousness: Awake & alert Pain: Pain Assessment: 0-10 Pain Score: 0 Diet Prior to this Evaluation: Level 0- Thin Liquids and Level 5- Dysphagia Minced and Moist Preferred Language: Dominican PRE-ASSESSMENT: ORDER PROCESSING SPECIALIST Pre-Assessment Current Method of Nutrition: Oral intake VIDEO FLUOROSCOPIC EXAM: Video Fluoroscopic Exam Patient Position: Neuro chair Viewing Plane: Lateral Feeding Assistance: Clinician provided bolus trials Follow Directions/Commands Given: Yes Respiratory Status: Nasal cannula IMPAIRMENT PROFILE: Impairment Profile Lip Closure: Within Functional Limits Tongue Control During Bolus Hold: Within Functional Limits Bolus Preparation for Mastication: Impaired Bolus Transport and Lingual Motion: Impaired Soft Palate Elevation: Within Functional Limits Tongue Base Retraction: Impaired Laryngeal Elevation: Within Functional Limits Anterior Hyoid Excursion: Impaired Epiglottic Movement: Impaired Laryngeal Vestibular Closure: Impaired Pharyngeal Stripping Wave: Impaired Pharyngoesophageal Segment Opening: Impaired MBSS BOLUS: Bolus 1: Clinical Measure 1 IDDSI Texture: 0- Thin Bolus Characteristics: spoon; cup; straw Bolus Hold: <50 Post loss Bolus Transport: Repetitive Initiation of Pharyngeal Swallow: Pyriform sinus Penetration-Aspiration Scale: 8: Material enters the airway, passes below the vocal folds, and no effort is made to eject. Timing of Aspiration: During the swallow, After the swallow Bolus 2: Clinical Measure 2 IDDSI Texture: 2- Mildly thick Bolus Characteristics: straw Bolus Hold: <50 Post loss Bolus Transport: Repetitive Initiation of Pharyngeal Swallow: Pyriform sinus Penetration-Aspiration Scale: 5: Material enters the airway, contacts the vocal folds, and is not ejected from the airway. Timing of Aspiration: During the swallow Bolus 3: Clinical Measure 3 IDDSI Texture: 4- Pureed Bolus Characteristics: spoon Bolus Hold: <50 Post loss Bolus Transport: Repetitive Initiation of Pharyngeal Swallow: Pyriform sinus Penetration-Aspiration Scale: 1: Material does not enter airway Bolus 4: Clinical Measure 4 IDDSI Texture: 5- Minced and moist Bolus Characteristics: spoon Bolus Hold: <50 Post loss Bolus Transport: Repetitive Initiation of Pharyngeal Swallow: Pyriform sinus Penetration-Aspiration Scale: 1: Material does not enter airway Bolus 5: Clinical Measure 5 IDDSI Texture: 6- Soft and Bite sized Bolus Hold: <50 Post loss Bolus Transport: Repetitive Initiation of Pharyngeal Swallow: Pyriform sinus Penetration-Aspiration Scale: 1: Material does not enter airway AMOUNT OF RESIDUE AND LOCATION: OUTCOME MEASURES: International Dysphagia Diet Standardization Initiative - IDDSI Solids - 5 - Minced & Moist Liquids - 0 - Thin IDDSI Level - 6 FUNCTIONAL ORAL INTAKE SCALE (FOIS), LESLEY ET AL., 2005:5- Total oral diet with multiple consistencies, but requiring special preparation or compensations DYSPHAGIA OUTCOME AND SEVERITY SCALE (RONALD), O'SIL ET AL., 1999:3 = Moderate dysphagia: Total assist, supervision, or strategies, two or more diet consistencies restricted. May exhibit one or more of the following: -Moderate retention in pharynx, cleared with cue. -Moderate retention in oral cavity, cleared with cue. -Airway penetration to the level of the vocal cords without cough with two or more consistencies. --Or aspiration with two consistencies, with weak or no reflexive cough. --Or aspiration with one consisteney, no cough and airway penetration to cords with one, no cough. GOALS:Encounter Goals Encounter Goals (Active) STG - Participate in an instrumental swallow study Start: 07/02/24 Expected End: 07/09/24 EDUCATION:Education Documentation Dietary Recommendations, taught by EZ Ceballos at 07/02/2024 11:28 AM. Learner: Family, Patient Readiness: Acceptance Method: Explanation Response: Verbalizes Understanding Swallowing Strategies, taught by EZ Ceballos at 07/02/2024 11:28 AM. Learner: Family, Patient Readiness: Acceptance Method: Explanation Response: Verbalizes Understanding Speech-Language/Pathology Treatment Plan, taught by EZ Ceballos at 07/02/2024 11:28 AM. Learner: Family, Patient Readiness: Acceptance Method: Explanation Response: Verbalizes Understanding Results of Exam, taught by EZ Ceballos at 07/02/2024 11:28 AM.Learner: Family, Patient Readiness: Acceptance Method: Explanation Response: Verbalizes Understanding Education CommentsNo comments found. If this is the last documented treatment, then it will signify discharge from acute care prior to discharge from the therapy service and will serve as the discharge summary. Therapy discharge recommendations are made by determining the patient's prior level of function, assessing current function level and establishing rehab potential. The overall discharge plan may be affected by input from Physicians, Care Coordination, medical condition/status, family support and insurance benefits. EZ Ceballos * EZ Ceballos - 07/02/2024 11:28 AM CDT Images from the original note were not included. [facility] ORDER PROCESSING SPECIALIST CLINICAL SWALLOWING EVALUATION (CSE) Patient Name: Rosita Ramirez Today's Date: 07/02/2024 Time In: 1119 Time Out: 1128 Room: [facility] CLINICAL SWALLOW EVALUATION SUMMARY: Orders for CSE received. Pt sitting upright in bed with breakfast food. 2L of 02 via nasal cannula. Dtr at bedside who reported pt has severe hearing loss and no hx of dysphagia. She further added that at baseline pt eats small portions of minced food at slow rate. OME revealed pt w/ upper and lower dentures. Limited PO trials of thin liquids (via straw) provided. Pt with adequate oral acceptance. Reflexive cough and throat clear observed w/ each trial, concerning for s/sx of laryngeal penetration/aspiration. Discussed options to assess swallow function re: NPO pending instrumental swallow evaluation vs eating/drinking w/ known risk until instrumental swallow evaluation is completed. Pt's dtr verbalized she wants pt to eat and drink despite risk for aspiration. She also stated preference for MBSS vs FEES given pt's hx of rhinoplasty. Recommend pt's diet downgraded to minced and moist consistencies & thin liquids w/ known risk of aspiration. Pt requires an MBSS to objectively evaluate swallow function. An MBSS is warranted given pt's w/ type II fracture of the dens. RECOMMENDATIONS: Diet Recommendations: Minced and moist consistencies and thin liquids w/ known risk of aspiration. Medications: As tolerated St[place] aspiration precautions Supervision Recommended: Close supervision Oral care: Regular toothbrush , As needed Will f/u for MBSS this PM PROGNOSIS: Fair PLAN: Treatment/Interventions: Instrumental Assessments Frequency: 1-2 times per week GENERAL INFORMATION: Reason for Consult: Pt was referred for a clinical swallow evaluation in the setting of suspected pharyngeal dysphagia Oxygenation: 2L of 02 via nasal cannula Behavior:Cooperative Level of Consciousness: Awake & alert Pain: Pain Assessment: 0-10 Pain Score: 0 Diet Prior to this Evaluation: Level 0- Thin Liquids and Level 7- Regular diet Preferred Language: Dominican ORAL MOTOR EXAM: Dentition: Dentures top, Dentures bottom CRANIAL NERVES FOR SPEECH, VOICE, AND SWALLOWING: SWALLOW ASSESSMENT: Consistencies Assessed Consistencies Assessed: Yes Swallowing Overview - Liquids0 - Thin Liquid: Impaired Clinical Swallow EvaluationPatient Positioning: Upright, In bed Previous History of Dysphagia?: No Inability to Follow One Step Directions?: No Tracheostomy Present: No Inability to Manage Their Secretions?: No Abnormal/Weak Volitional Cough?: Yes Cough/Throat Clear w/ Trial Consistency?: Yes Dysphonia (Quality and/or Pitch Change)?: No Motor Speech Disorder (Dysarthria/Apraxia)?: No Apraxia of the Swallow Suspected?: No Delayed Swallow Suspected?: Yes Multiple Swallows Per Bolus Suspected?: Yes Tongue Pumping Suspected?: No OUTCOME MEASURES:International Dysphagia Diet Standardization Initiative - IDDSI Solids - 5 - Minced & Moist Liquids - 0 - Thin IDDSI Level - 6 GOALS:Encounter Goals Encounter Goals (Active) STG - Participate in an instrumental swallow study Start: 07/02/24 Expected End: 07/09/24 EDUCATION:Education Documentation Dietary Recommendations, taught by EZ Ceballos at 07/02/2024 11:28 AM. Learner: Family, Patient Readiness: Acceptance Method: Explanation Response: Verbalizes Understanding Swallowing Strategies, taught by EZ Ceballos at 07/02/2024 11:28 AM. Learner: Family, Patient Readiness: Acceptance Method: Explanation Response: Verbalizes Understanding Speech-Language/Pathology Treatment Plan, taught by EZ Ceballos at 07/02/2024 11:28 AM. Learner: Family, Patient Readiness: Acceptance Method: Explanation Response: Verbalizes Understanding Results of Exam, taught by EZ Ceballos at 07/02/2024 11:28 AM.Learner: Family, Patient Readiness: Acceptance Method: Explanation Response: Verbalizes Understanding Education CommentsNo comments found. If this is the last documented treatment, then it will signify discharge from acute care prior to discharge from the therapy service and will serve as the discharge summary. Therapy discharge recommendations are made by determining the patient's prior level of function, assessing current function level and establishing rehab potential. The overall discharge plan may be affected by input from Physicians, Care Coordination, medical condition/status, family support and insurance benefits. EZ Ceballos * EZ Ceballos - 07/02/2024 10:34 AM CDT Speech-Language Pathology Encounter Note Patient Name: Rosita Ramirez Today's Date: 07/02/2024 Missed Treatment Time and Reason Orders for clinical swallow evaluation received. Pt not in room when approached. Reached out to RN via secure chat. Will f/u later this PM as time permits. [id number] EZ Ceballos * Yesica Gonzalez MD - 07/02/2024 10:05 AM CDT Subjective Neck hurts after bedding was changed. Not very hungry. Objective Last Recorded Vitals Blood pressure 159/72, pulse 77, temperature 36.2 ?C (97.2 ?F), temperature source Oral, resp. rate 16, height 1.6 m (5' 2.99"), weight 45.4 kg (100 lb 1.4 oz), SpO2 98%. No intake or output data in the 24 hours ending 07/02/24 1005 Physical Exam: Constitutional: General: She is not in acute distress. Appearance: She is not ill-appearing. Neck: Comments: [place] J collar on Cardiovascular: Rate and Rhythm: Normal rate. Pulses: Normal pulses. Heart sounds: Normal heart sounds. Pulmonary: Effort: Pulmonary effort is normal. Abdominal: General: Bowel sounds are normal. Palpations: Abdomen is soft. Skin: General: Skin is warm and dry. Neurological: Mental Status: She is alert. Mental status is at baseline. She is disoriented. Comments: Moving all extremities. 4/5 strength diffusely Psychiatric: Mood and Affect: Mood normal. Current Active Medications escitalopram, 10 mg, Oral, Daily levETIRAcetam, 500 mg, Oral, BID lidocaine, 1 patch, Apply externally, Daily [Held by provider] losartan, 50 mg, Oral, Daily Memantine HCl-Donepezil HCl, 1 tablet, Oral, Daily mirabegron ER, 50 mg, Oral, Nightly montelukast, 10 mg, Oral, Nightly polyethylene glycol (PEG) 3350, 17 g, Oral, Daily pregabalin, 100 mg, Oral, Daily simvastatin, 10 mg, Oral, Nightly sodium chloride, 10 mL, Intravenous, q12h ISATU PRN medications: acetaminophen, naloxone, ondansetron, oxyCODONE, oxyCODONE, sodium chloride Lab ResultsResults from last 7 days Lab Units 07/02/24 0320 07/01/24 0001 WBC 10*3/uL 12.96* 9.84 HEMOGLOBIN g/dL 11.6 11.2 HEMATOCRIT % 34.4 32.6* PLATELETS 10*3/uL 208 193 Results from last 7 daysLab Units 07/02/24 0320 07/01/24 0001 SODIUM mEq/L 139 143 POTASSIUM mEq/L 4.1 4.5 CHLORIDE mEq/L 101 109* CO2 mEq/L 26.4 27.4 BUN mg/dL 23 20 CREATININE mg/dL 1.04* 1.16* GLUCOSE mg/dL 91 99 CALCIUM mg/dL 9.2 9.0 [age]rruvk22 yo woman with Alzheimer's dementia and COPD fell and sustained an acute compression fractures of T1 and T3, acute C2 fracture (type III) complicated by subdural hemorrhage measuring 2.6 mm in thickness. Neurosurgery has recommended a [place] collar at all times with close clinic follow up. Repeat CT brain is pending to assess stability. Speech therapy evaluation is ordered to assess for acute dysphagia with neck injury. Daughter is at bedside and has been updated in person. Assessment & PlanType III fracture of odontoid process (HCC) [place] collar at all times Speech evaluation Traumatic subdural hematoma (HCC) I don't have formal report of original CT brain Repeat CT brain ordered. Referral to Dr Ellis completed in future orders Hold VTE prophylaxis for now Compression fracture of T3 vertebra (HCC) Acute compression fractures of T1, T3 Follow up with Dr Isaak Manning in 2 weeks with upright AP and lateral radiographs of the cervical spine Alzheimer's dementia ([facility]) memantine/donepezil, escitalopram, trazodone Daughter at bedside Essential hypertension Resume home losartan if elevated BP persists after pain control COPD (chronic obstructive pulmonary disease) ([facility]) Prn duroneb montelukast Mixed hyperlipidemia simvastatin VTE prophylaxis: This patient does not have an active medication from one ofthe medication groupers. Full CodeDisposition: Likely SNF * MIGUEL ANGEL Stewart - 07/01/2024 1:29 PM CDT NEUROSURGERY PROGRESS NOTE: Date: 07/01/24 Patients Name: Rosita Ramirez Admit Date: 06/30/2024 Admitting Provider: Candice Rebollar MD;Isaak Montes* : 1935 Service: Neurosurgery Trauma Team Age/Sex: 89 y.o. female SUBJECTIVE: Pt is an 89 y.o F with a unwitnessed fall and diagnosed with Type III dens fx,, she had an over read of CT brain that revealed right-sided acute parietal SDH. Pt denies ASA/blood thinners. Per family patient is at her neurological baseline. Pt complains of severe headache. She denies N/V, seizures, acute visual changes,, or acute weakness/numbness of extremities. OBJECTIVE: Vitals: Vitals: 07/01/24 1259 07/01/24 1300 07/01/24 1315 07/01/24 1400 BP: 138/66 153/72 139/65 Pulse: 77 75 76 74 Resp: 16 Temp: SpO2: 98% 94% 92% I/O: No intake or output data in the 24 hours ending 07/01/24 1451 PHYSICAL EXAM: GCS-14 [id number] A+Gz4Hhldqg 4 mm brisk, bilaterally MOTOR 5/5 bilaterally x 4 extremities SENSORY intact to light touch LABS/IMAGING:Labs: UA WBC Date Value Ref Range Status 07/01/2024 1 0 - 5 /HPF Final HgbDate Value Ref Range Status 07/01/2024 11.2 10.8 - 14.8 g/dL Final HctDate Value Ref Range Status 07/01/2024 32.6 (L) 33.9 - 45.4 % Final Plt CountDate Value Ref Range Status 07/01/2024 193 191 - 422 10*3/uL Final Sodium LvlDate Value Ref Range Status 07/01/2024 143 136 - 145 mEq/L Final Potassium LvlDate Value Ref Range Status 07/01/2024 4.5 3.4 - 4.5 mEq/L Final Creatinine LvlDate Value Ref Range Status 07/01/2024 1.16 (H) 0.55 - 1.02 mg/dL Final Activated Clotting Time (TEG) RapidDate Value Ref Range Status 07/01/2024 113 86 - 118 sec Final Radiology Imaging Reviewed: - I have personally reviewed all pertinent NSGY imaging studies and agree with the findings under "impression" ASSESSMENT AND PLAN:Active Problems: Problem List[1] Assessment:- Pt is an 89 y.o F with a unwitnessed fall and diagnosed with Type III dens fx,, she had an over read of CT brain that revealed right-sided acute parietal SDH. Pt denies ASA/blood thinners. Per family patient is at her neurological baseline. Impression:- Thin acute Right parietal SDH - Type III odontoid facture Plan:- Seizure prophylaxis - Keppra 1,000 mg IV loading bolus and maintenance of 500 mg PO q 12hr for 7 days - STAT repeat CT brain - No acute neurosurgical intervention is recommended at this time. If repeat CT brain is unchanged. Patient can be admitted under medicine. Pt can follow up with Too Ghosh in his neurosurgery trauma clinic in 2 weeks. Call for appointment at [phone]. Pt will need repeat CT brain at time of office visit. - Please call [phone] with GY questions or concerns GUCCI Stewart [facility] [place] [1]Patient Active Problem List Diagnosis Traumatic subdural hematoma (HCC) Type III fracture of odontoid process (HCC) Cosigned by Isaak Manning MD at 07/02/2024 7:41 AM CDT Associated attestation - Isaak Manning MD - 07/02/2024 7:41 AM CDT I have reviewed the documented history, ROS, physical exam, and decision making and agree. * Nereida Edwards MD - 07/01/2024 11:05 AM CDT Neurosurgery spine update Imaging reviewed with neurosurgery spine faculty. No indication for acute neurosurgical intervention. Patient to remain in [place] J cervical collar at all times. Patient to follow-up in spine clinic with Dr. Isaak Manning in 2 weeks with upright AP and lateral radiographs of the cervical spine. Please call [phone] to schedule appointment. Neurosurgery spine to remain available for questions or concerns at [phone] while patient remains in house. Cosigned by Isaak Manning MD at 07/01/2024 12:07 PM CDT [facility]21[facility] 15:53:57Scheduled Referrals Health Maintenance Due Date Last Done Comments Bone Density Scan 1935 Lipid Panel 1935 Medicare Annual Wellness (AWV) 1935 DTaP/Tdap/Td Vaccines (1 - Tdap) 06/30/1955 Pneumococcal Vaccine: 50+ Ye ars (1 of 2 - PCV) 06/30/1955 Zoster Vaccines (1 of 2) 1986 Respiratory Syncytial Virus (RSV) or >=60 (1 - 1-dose 75+ series) 06/30/2011 Influenza Vaccine (#1) 2023 HIB Vaccines Aged Out No longer eligi ble based on patient's age to complete this topic HPV Vaccines Aged Out No longer eligi ble based on patient's age to complete this topic Hepatitis A Vaccines Aged Out No long er eligible based on patient's age to complete this topic Hepatitis B Vaccines Aged Out No long er eligible based on patient's age to complete this topic IPV Vaccines Aged Out No longer eligi ble based on patient's age to complete this topic Meningococcal Vaccine Aged Out No suzanne ronni eligible based on patient's age to complete this topic Rotavirus Vaccines Aged Out No longer eligible based on patient's age to complete this topic [facility] HospitalAzzlryj0325-06-59 15:53:57 Diagnosis Closed nondisplaced fracture of second cervical vertebra, unspecified fracture morphology, initial encounter ([facility]) ([facility]) - Primary Closed nondisplaced fracture of second cervical vertebra, unspecified fracture morphology, initial encounter ([facility]) ([facility]) Compression fracture of thor acic vertebra, unspecified thoracic vertebral level, initial encounter ([facility]) Subdural hematoma ([facility]) Subdural hemorrhage Traumatic subdural hematoma ([facility]) Subdural hemorrhage following injury, without mention of open intracranial wound, unspecified state of consciousness Type III fracture of odontoi d process ([facility]) Ground-level fall Alzheimer's dementia ([facility]) Essential hypertension Unspecified essential hypertension COPD (chronic obstructive pulmonary disease) ([facility]) Chronic airway obstruction, not elsewhere classified Mixed hyperlipidemia Compression fracture of T3 v ertebra ([facility]) Itching Unspecified pruritic disorder [facility] HospitalShjsiyw8555-71-45 15:53:57 [place] [id number] 01:50:47 Problem: Pain - Adult Goal: Verbalizes/displays adequate comfort level or baseline comfort level Outcome: Ongoing Problem: Safety - Adult Goal: Free from fall injury Outcome: Ongoing Problem: Discharge Planning Goal: Discharge to home or other facility with appropriate resources Outcome: Ongoing Problem: Chronic Conditions and Co-morbidities Goal: Patient's chronic conditions and co-morbidity symptoms are monitored and maintained or improved Outcome: Ongoing The patient is Moderately Stable - Low risk of patient condition declining or worsening The patient's goals for the shift include pain control The clinical goals for the shift include qsafety [facility]2025-03-24 07:04:41 The patient is Moderately Stable - Low risk of patient condition declining or worsening The patient's goals for the shift include pain managment The clinical goals for the shift include safety and pain managment [facility]2025-03-24 00:06:52 Problem: Pain - Adult Goal: Verbalizes/displays adequate comfort level or baseline comfort level Outcome: Ongoing Problem: Safety - Adult Goal: Free from fall injury Outcome: Ongoing Problem: Discharge Planning Goal: Discharge to home or other facility with appropriate resources Outcome: Ongoing Problem: Chronic Conditions and Co-morbidities Goal: Patient's chronic conditions and co-morbidity symptoms are monitored and maintained or improved Outcome: Ongoing The patient is Moderately Stable - Low risk of patient condition declining or worsening The patient's goals for the shift include sleep The clinical goals for the shift include safety [place] [id number] 07:05:20 The patient is Moderately Stable - Low risk of patient condition declining or worsening The patient's goals for the shift include sleep The clinical goals for the shift include safety [place] [id number] 23:08:36 The patient is Moderately Stable - Low risk of patient condition declining or worsening The patient's goals for the shift include sleep The clinical goals for the shift include safety Over the shift, the patient did not make progress toward the following goals. Barriers to progression include pain. Recommendations to address these barriers include pain mgmt. [place] [id number] 07:16:44 The patient is Moderately Stable - Low risk of patient condition declining or worsening The patient's goals for the shift include Sleep The clinical goals for the shift include safety and comfort [place] [id number] 02:28:09 The patient is Moderately Stable - Low risk of patient condition declining or worsening The patient's goals for the shift include Sleep The clinical goals for the shift include safety and comfort Patient made progress towards the following goals during shift. [place] [id number] 17:13:41 Problem: Safety - Adult Goal: Free from fall injury Outcome: Ongoing The patient is Moderately Stable - Low risk of patient condition declining or worsening The patient's goals for the shift include safety The clinical goals for the shift include Safety, comfort and pain management [facility]2025-03-20 21:45:00 The patient is Moderately Unstable - Medium risk of patient condition declining or worsening The patient's goals for the shift include Unable to assess The clinical goals for the shift include Safety, comfort and pain management Over the shift, the patient did make progress toward the following goals. [facility] HospitalGehdzog9253-01-26 12:07:52 Final Recommendation(s): Secondary Review Review Type: Initial Initial Recommendation: Inpatient Secondary Review Status: Physician advisor review complete Inpatient Rationale for Recommendation(s): 89 yo with Alzheimer's dementia and COPD fell and sustained an acute compression fractures of T1 and T3, acute C2 fracture (type III) complicated by subdural hemorrhage measuring 2.6 mm in thickness. Medical necessity reasonable for 2mn crossed, initial in ER. Recommend we follow as inpatient. [facility] Family Medicine PhysicianHouston Methodist HospitalAlwudxn9399-95-97 23:00:00 Images from the original note were not included. ED attending note: 89 yo h/o HTN, HLD, mild dementia s/p unwitnessed GLF -- found this AM by family. Xferred d/t C2 fx. At baseline MS currently per family. On NC at OSH ED NAD Neck TTP No resp distress Abd benign Pulses+2 GCS 14 (Ox2 -- c/w baseline per family) A/P: C2 fx OSH imaging: CXR: 1. Cardiomegaly with interstitial and alveolar pulmonary edema. The presence of infection is not entirely excluded radiographically. 2. Scattered linear opacities adjacent to an asymmetrically elevated right diaphragm compared to the left are consistent with subsegmental atelectasis or parenchymal scarring. 3. Hazy opacities in the lung bases may be due singly or in combination to atelectasis, edema or pneumonia. 4. The thoracic aorta is tortuous and calcified. 5. The main pulmonary artery is enlarged. This can be associated with pulmonary arterial hypertension. 6. A 4.25 cm ovoid calcific density projects over the inferior right lateral chest wall at the level of the right sixth, seventh and eighth ribs. This is likely centered within chest wall or breast tissue. 7. There is generalized decreased bone mineral density. CTA pending CT C/A/P pending EKG ? U waves Sp (NS) consulted Summary: BS U/S by Dr Whitt I was present for the critical and escobedo portions of the procedure . Additionally, I was immediately available to furnish services during the entire procedure. CTA: No arterial injury in the neck. CT C/A/P interp pending MRI pending (ordered by NS) Signed out at 6a to Dr. Rebollar CRITICAL CARE NOTE I examined the patient: Rosita Ramirez, who at that time was critically ill and had a high probability of sudden significant deterioration in her condition as evident by CRITICALCAREPRESENTATION: trauma and required my constant medical attention and the highest level of preparedness to intervene urgently. I provided 30 minutes of aggregated critical care services to this patient while she was in critical condition including: direct patient care, documentation time, review of imaging studies, review of laboratory results, review of medications, allergies, and vital signs, review of nursing notes, and review of old medical records. The reported time excludes time spent on separately reportable procedures. Elsy Sullivan MD July 01, 2024 3:23 AM Home meds: Elsy Sullivan MD 07/01/24 0642 Elsy Sullivan MD 07/01/24 0711 Emergency Medicine PhysicianPamomonse MckeonDxpnecp7690-43-72 20:58:00 History of Present Illness: Chief Complaint: Patient presents with Fall Patient is an 89-year-old female. HTN, mild dementia, potential COPD who presents to ED as a transfer for evaluation of a C2 fracture. Patient had an unwitnessed fall sometime overnight. Patient's family reports that she was at her baseline yesterday evening. They found her this morning yelling for help and found her slumped against the side of the bed. Patient herself unable to member exact what happened. Patient is mildly confused at baseline, but is able to answer basic questions and walks. Denying any recent fevers, chills, nausea, vomiting. Does not use oxygen at home. Patient History Medical History[1] Surgical History[2] Family History[3] Social History: Tobacco Use Smoking status: Not on file Smokeless tobacco: Not on file Substance Use Topics Alcohol use: Not on file Drug use: Not on file Review of Systems: Review of Systems Constitutional: Negative for fever. Respiratory: Negative for shortness of breath. Cardiovascular: Negative for chest pain. Gastrointestinal: Negative for abdominal pain, nausea and vomiting. Genitourinary: Negative for dysuria. Neurological: Positive for headaches. Physical Exam: Constitutional: General: She is not in acute distress. HENT: Head: Normocephalic and atraumatic. Eyes: General: Right eye: No discharge. Left eye: No discharge. Extraocular Movements: Extraocular movements intact. Conjunctiva/sclera: Conjunctivae normal. Cardiovascular: Rate and Rhythm: Normal rate and regular rhythm. Pulses: Normal pulses. Heart sounds: Normal heart sounds. Pulmonary: Effort: Pulmonary effort is normal. No respiratory distress. Breath sounds: Normal breath sounds. No wheezing. Abdominal: General: Abdomen is flat. Palpations: Abdomen is soft. Tenderness: There is no abdominal tenderness. There is no guarding. Musculoskeletal: General: No swelling or deformity. Normal range of motion. Cervical back: Normal range of motion and neck supple. Tenderness present. Skin: General: Skin is warm and dry. Findings: No erythema. Neurological: General: No focal deficit present. Mental Status: She is alert. Mental status is at baseline. Motor: No weakness. Comments: AAOx2. 5 out of 5 strength in upper and lower extremities bilaterally. Psychiatric: Mood and Affect: Mood normal. Triage Vitals: BP: 118/63, Heart Rate: 80, Temp: 37.4 ?C (99.3 ?F), Resp: 16, SpO2: 99 %, Height: 160 cm (5' 3"), Weight: 45.4 kg (100 lb) Last Recorded Vitals: BP: 129/63, Heart Rate: 72, Temp: 36.6 ?C (97.8 ?F), Resp: 17, SpO2: 91 %, Height: 160 cm (5' 3"), Weight: 45.4 kg (100 lb) Procedures Performed: Procedures ED Course : ED Course: as of 07/01/24 0825 SunJul 01, 2024605 Patient signed out pending follow up with NSGY spine recs Hx htn dm dementia aaox2 Here for c2 fracture Unwitnessed fall at home down 6-8 hrs [RAMIRO] [address] CHEST ABDOMEN PELVIS W IV CONTRAST IMPRESSION: 1. No acute traumatic abnormality within the abdomen or pelvis. 2. Right sixth lateral rib soft tissue destructive lesion, correlation with tissue analysis recommended. No other suspicious osseous lesions. 3. Diffuse bladder wall thickening may be secondary to under distention, correlate with urinalysis to rule out cystitis. 4. Other incidental findings as above [AG] [address] ANGIOGRAM NECK IMPRESSION: * No arterial injury in the neck. [AG] 0731 I excepted care of this patient with the prior team. This is an 89-year-old female with past medical history of hypertension, diabetes, dementia baseline ANO x 2 currently at her baseline presenting for a C2 fracture. Patient was found down for 6 to 8 hours. Neurosurgery has been involved and we are pending final recommendations as well as MRI cervical spine read. [AG] ED Course: User Index [AG] Adriana Mitchell MD [RAMIRO] Candice Rebollar MD Diagnoses as of 07/01/24 0825 Closed nondisplaced fracture of second cervical vertebra, unspecified fracture morphology, initial encounter ([facility]) ([facility]) Disposition: Medical Decision Making Differential: ICH, C-spine injury, intra-abdominal injury, intrathoracic injury, spinal fracture, extremity fracture, cardiac arrhythmia, electrolyte abnormality, BCVI ED Course: Patient is an 89-year-old female who presents to ED for evaluation after a fall with resulting C2 fracture noted on outside imaging. On examination, patient is mildly confused, but reportedly at baseline mental status. Without any focal neurologic deficits on examination and able to follow all commands without difficulty. However, given spine injury, with concern for possible blunt cerebrovascular injury as well, and will obtain CT to further evaluate. Will additionally obtain CT of the torso to complete spinal imaging and will consult neurosurgery spine for further recommendations. Will otherwise obtain basic laboratory workup per institutional geriatric trauma guidelines to evaluate for any metabolic or infectious causes which may have incited fall. Update: CTA Negative. Patient signed out to oncoming team pending CT C/A/P, MRI C spine read; remains neurologically stable at this time. MEDICAL DECISION MAKING Complexity of Problems Addressed High: I am concerned about a severe complexity problem which was evidenced by the differential, and associated workup to rule out the severe problem: ICH which is an acute problem for this patient as evidenced by MDM paragraph above Complexity of Data Review Category 1: (# Of Data Points) Ordered the following tests: CBC, BMP, CXR, VBG, lactic, UA, MRI C-spine, CT C/A/P, CTA neck Category 3: (Ship Fastener) I consulted and spoke with NSGY about the patient and they stated information as provided in MDM paragraph above Risk of Management Pending further workup by oncoming team Amount and/or Complexity of Data Reviewed Labs: ordered. Radiology: ordered. Decision-making details documented in ED Course. ECG/medicine tests: ordered. Risk OTC drugs. Prescription drug management. Scoring Tools [1] No past medical history on file. [2] No past surgical history on file. [3] No family history on file. Amish Whitt MD Resident 07/01/24824 Cosigned by Elsy Sullivan MD at 07/05/2024 10:31 AM CDT Associated attestation - Elsy Sullivan MD - 07/05/2024 10:31 AM CDT Teaching Attending Attestation: The patient was seen and examined by me in the presence of, or jointly with, the resident, and I agree with the History/Exam/Medical Decision Making documented unless further documented -- Please see my separate note . Additionally, I was directly involved in the management of the patient. Impression: C2 fracture Elsy Sullivan MD [place] [id number] 20:58:00 Triage Vitals: BP: 118/63, Heart Rate: 80, Temp: 37.4 ?C (99.3 ?F), Resp: 16, SpO2: 99 %, Height: 160 cm (5' 3"), Weight: 45.4 kg (100 lb) Last Recorded Vitals: BP: 139/65, Heart Rate: 74, Temp: 36.6 ?C (97.8 ?F), Resp: 16, SpO2: 92 %, Height: 160 cm (5' 2.99"), Weight: 45.4 kg (100 lb 1.4 oz) Procedures Performed: Procedures ED Course : ED Course: as of 07/01/24 1500 Tue Jul 01, 2024 0606 Patient signed out pending follow up with NSGY spine recs Hx htn dm dementia aaox2 Here for c2 fracture Unwitnessed fall at home down 6-8 hrs [RAMIRO] [address] CHEST ABDOMEN PELVIS W IV CONTRAST IMPRESSION: 1. No acute traumatic abnormality within the abdomen or pelvis. 2. Right sixth lateral rib soft tissue destructive lesion, correlation with tissue analysis recommended. No other suspicious osseous lesions. 3. Diffuse bladder wall thickening may be secondary to under distention, correlate with urinalysis to rule out cystitis. 4. Other incidental findings as above [AG] [address] ANGIOGRAM NECK IMPRESSION: * No arterial injury in the neck. [AG] 0731 I excepted care of this patient with the prior team. This is an 89-year-old female with past medical history of hypertension, diabetes, dementia baseline ANO x 2 currently at her baseline presenting for a C2 fracture. Patient was found down for 6 to 8 hours. Neurosurgery has been involved and we are pending final recommendations as well as MRI cervical spine read. 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 The first rib bearing vertebra is referred to as T1 with the disc level above referred to as C6-T1. * Acute minimally displaced and angulated type III odontoid fracture with fracture planes extending through the lateral masses and transverse processes. * Disc osteophyte complex and ligamenta flava infolding resulting in moderate spinal canal narrowing and mild cord compression without abnormal cord signal. * Minimally compressed acute fracture of T3. Noncompressed acute fracture of the anterior superior endplate of T1. [AG] 1216 Patient on 3 L nasal cannula which patient's family member states is new. Patient received IV opioid pain medications which may be contributory to these findings. Discontinued nasal cannula with saturation at 88% which patient has underlying lung disease and this is consistent with her baseline. Patient still pending her [place] from central supply. She will also need to perform ambulatory trial monitoring her oxygen saturation while using her walker. [AG] 1254 Patient had oxygen turned off and was found to be 78% on room air. She is currently on 4 L nasal cannula. She denies infectious symptoms, cough, shortness of breath, chest pain at this time. Given patient's symptomology and vital signs there is low concern for pulmonary embolus. Given physical exam there is low concern for CHF. Patient needs admission for pain control, PT OT, new oxygen requirement of unknown etiology [AG] 1414 Htn dm dementia xao2 baseline, c2 fracture, t3 compression fx, ct ordered prior shift, couldn't see, 4L nc now. Subdural hemorrhage. Eve haji Nsgy consulted, stability scan [RS] ED Course: User Index [AG] Adriana Mitchell MD [RAMIRO] Candice Rebollar MD [RS] Elyse Amaya MD Diagnoses as of 07/01/24 1500 Closed nondisplaced fracture of second cervical vertebra, unspecified fracture morphology, initial encounter (CMS/HCC) (HCC) Compression fracture of thoracic vertebra, unspecified thoracic vertebral level, initial encounter (HCC) Subdural hematoma (HCC) Disposition: Medical Decision Making Amount and/or Complexity of Data Reviewed Labs: ordered. Radiology: ordered. Decision-making details documented in ED Course. ECG/medicine tests: ordered. Risk OTC drugs. Prescription drug management. MEDICAL DECISION MAKING Complexity of Problems Addressed High: I am concerned about a severe complexity problem which was evidenced by the differential, and associated workup to rule out the severe problem: Cervical spinal fracture, which is a acute problem for this patient as evidenced by mechanical fall. Complexity of Data Review Category 1: (# Of Data Points) Ordered the following tests: UA, type and screen, LFTs, mag, type, ethanol, BMP, VBG, CK, lactate, CBC, MRI cervical spine, CT chest abdomen pelvis, CT neck, chest x-ray abdomen Category 2: (Image/Tracing Interpretation): I contemporaneously during the patient encounter interpreted the following: Telemetry of the patient and these are my findings: Normal sinus rhythm Category 3: (Ship Fastener) I consulted and spoke with neurosurgery about the patient and they stated they will evaluate the patient. Risk of Management (New Prescription Management) I performed prescription management this visit as evidenced by prescribing Keppra, a new prescription. Scoring Tools Adriana Mitchell MD Resident 07/01/24 1500 Cosigned by Candice Rebollar MD at 07/04/2024 11:58 AM CDT Associated attestation - Candice Rebollar MD - 07/04/2024 11:58 AM CDT Teaching Attending Attestation (Keith of Care Note): I assumed care of this patient from the previous EC attending. I agree with the resident's plan unless further documented below. Additionally, I was directly involved in the management of the patient. Impression: 1. Closed nondisplaced fracture of second cervical vertebra, unspecified fracture morphology, initial encounter (CMS/HCC) (HCC) 2. Compression fracture of thoracic vertebra, unspecified thoracic vertebral level, initial encounter ([facility]) 3. Subdural hematoma (HCC) [id number]00 Assumed Care - Addendum History of Present Illness Patient was signed out to me by the outgoing EM team at shift change. Patient's chief complaint, symptoms, exam findings, interventions, and plan of care were conveyed to me. In short, Rosita Ramirez is a 89 y.o. female with a PMH of HTN, DMII, dementia. Presenting with C2 fracture, T3 compression fracture after mechanical fall. SDH. Given Keppra. Baseline AxO2. Admitted to hospitalist for new O2 requirement. 4 L NC. Pending: Admission to hospitalist ED Course / Imaging Updates: ED Course: as of 07/03/2447Jul 01, 2024 0606 Patient signed out pending follow up with NSGY spine recs Hx htn dm dementia aaox2 Here for c2 fracture Unwitnessed fall at home down 6-8 hrs [RAMIRO] [address] CHEST ABDOMEN PELVIS W IV CONTRAST IMPRESSION: 1. No acute traumatic abnormality within the abdomen or pelvis. 2. Right sixth lateral rib soft tissue destructive lesion, correlation with tissue analysis recommended. No other suspicious osseous lesions. 3. Diffuse bladder wall thickening may be secondary to under distention, correlate with urinalysis to rule out cystitis. 4. Other incidental findings as above [AG] [address] ANGIOGRAM NECK IMPRESSION: * No arterial injury in the neck. [AG] 0731 I excepted care of this patient with the prior team. This is an 89-year-old female with past medical history of hypertension, diabetes, dementia baseline ANO x 2 currently at her baseline presenting for a C2 fracture. Patient was found down for 6 to 8 hours. Neurosurgery has been involved and we are pending final recommendations as well as MRI cervical spine read. 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 The first rib bearing vertebra is referred to as T1 with the disc level above referred to as C6-T1. * Acute minimally displaced and angulated type III odontoid fracture with fracture planes extending through the lateral masses and transverse processes. * Disc osteophyte complex and ligamenta flava infolding resulting in moderate spinal canal narrowing and mild cord compression without abnormal cord signal. * Minimally compressed acute fracture of T3. Noncompressed acute fracture of the anterior superior endplate of T1. [AG] 1216 Patient on 3 L nasal cannula which patient's family member states is new. Patient received IV opioid pain medications which may be contributory to these findings. Discontinued nasal cannula with saturation at 88% which patient has underlying lung disease and this is consistent with her baseline. Patient still pending her [place] from central supply. She will also need to perform ambulatory trial monitoring her oxygen saturation while using her walker. [AG] 1254 Patient had oxygen turned off and was found to be 78% on room air. She is currently on 4 L nasal cannula. She denies infectious symptoms, cough, shortness of breath, chest pain at this time. Given patient's symptomology and vital signs there is low concern for pulmonary embolus. Given physical exam there is low concern for CHF. Patient needs admission for pain control, PT OT, new oxygen requirement of unknown etiology [AG] 1414 Accepted care at signout. PMH: HTN, DMII, dementia. Presenting with C2 fracture, T3 compression fracture after mechanical fall. SDH. Given Keppra. Baseline AxO2. Pending: Stability scan, NSGY recommendations [RS] [address] BRAIN WO IV CONTRAST Stability scan: * Stable small laminar subdural hematoma in the right cerebral convexity. * Minimal amount of subarachnoid hemorrhage layering in the interpeduncular cistern, and tiny layering blood levels in the lateral ventricles. * Unchanged other chronic findings. [RS] 193 Natriuretic Peptide B(!): 307 [RS] Wed Jul 02, [id number] Accepted care at signout. PMH: HTN, DMII, dementia. Presenting with C2 fracture, T3 compression fracture after mechanical fall. SDH. Given Keppra. Baseline AxO2. Admitted to hospitalist for new O2 requirement. 4 L NC. [RS] ED Course: User Index [AG] Adriana Mitchell MD [RAMIRO] Candice Rebollar MD [RS] Elyse Amaya MD Diagnoses as of 07/03/24 0048 Closed nondisplaced fracture of second cervical vertebra, unspecified fracture morphology, initial encounter (CMS/HCC) (HCC) Compression fracture of thoracic vertebra, unspecified thoracic vertebral level, initial encounter (HCC) Subdural hematoma (HCC) Medications sodium chloride (NS) 0.9 % flush 10 mL (has no administration in time range) electrolyte solution pH 7.4 (Plasma-lyte/Normosol/Isolyte) infusion (50 mL/hr Intravenous New Bag 07/01/24 0856) levETIRAcetam (Keppra) tablet 500 mg (has no administration in time range) acetaminophen (Ofirmev) injection 650 mg (0 mg Intravenous Stopped 07/01/24 0219) iohexol (OMNIPaque) 350 MG/ML injection 85 mL (85 mL Intravenous Given 07/01/24 0248) acetaminophen (Tylenol) tablet 1,000 mg (1,000 mg Oral Given 07/01/24 0827) morphine PF injection 1 mg (1 mg Intravenous Given 07/01/24 0856) ondansetron (Zofran) injection 4 mg (4 mg Intravenous Given 07/01/24 0856) levETIRAcetam (Keppra) injection 1,000 mg (1,000 mg Intravenous Given 07/01/24 1347) sulfur hexafluoride lipid-type A microspheres (Lumason) 60.7-25 MG Injectable suspension 2 mL (2 mL Intravenous Given 07/01/24 1334) furosemide (Lasix) injection 20 mg (20 mg Intravenous Given 07/01/24 1722) I signed out this patient to the oncoming team at shift change. Prior documents, lab results, and imaging were reviewed by the oncoming team during sign-out. The plan for the patient was discussed and all questions addressed. Clinical Impression 1. Closed nondisplaced fracture of second cervical vertebra, unspecified fracture morphology, initial encounter (CMS/HCC) (HCC) 2. Compression fracture of thoracic vertebra, unspecified thoracic vertebral level, initial encounter (HCC) 3. Subdural hematoma (HCC) This note was dictated with the use of dictation speech recognition software, please use best judgement when interpreting and excuse any milk inspector errors. Elyse Amaya MD Department of Emergency Medicine | PGY-1 Elyse Amaya MD Resident 07/03/24 0051 Cosigned by Isaak Beal MD at 07/05/2024 11:33 PM CDT Associated attestation - Isaak Beal MD - 07/05/2024 11:33 PM CDT Teaching Attending Attestation: The patient was seen and examined by me in the presence of, or jointly with, the resident, and I agree with the History/Exam/Medical Decision Making documented unless further documented below. Additionally, I was directly involved in the management of the patient. Impression: 1. Closed nondisplaced fracture of second cervical vertebra, unspecified fracture morphology, initial encounter (CMS/HCC) (HCC) 2. Compression fracture of thoracic vertebra, unspecified thoracic vertebral level, initial encounter (HCC) 3. Subdural hematoma (HCC) Isaak Beal MD Emergency MedicinePamomonse Mckeon
[2024-09-05] MEDS ORDERED: NA CHLORIDE 0.9% 500 ML ONE (14:36)
[2024-09-05 14:48] LABS: PT Prothrombin Time 11.1 SECONDS (10-13.0); Protime INR 0.97
[2024-09-05 14:53] LABS: Absolute Basophils 0.1 K/uL (0-0.5); Absolute Eosinophils 0.2 K/uL (0-0.5); Absolute Lymphocytes (CBC) 1.4 K/uL (0.7-4.9); Absolute Monocytes 0.5 K/uL (0.1-1.3); Basophils % 1.2 % (0-1.3); Eosinophils % 3.6 % (0-4.4); Hematocrit 37.1 % (36.0-45.0); Hemoglobin 12.5 g/dL (12.0-15.0); Lymphocytes % 22.7 % (15.3-44.8); MCH 32.3 pg (27.0-35.0); MCHC 33.6 g/dL (32.0-36.0); MCV 96.1 fL (80-100); MPV 8.4 fL (7.6-11.3); Monocytes % 7.5 % (3.3-12.3); Nucleated Red Blood Cells % 0.1 % (0-0); Platelets 205 thou/uL (152-406); RBC Red Blood Cell Count 3.86 M/uL (3.86-4.86); Red Cell Distribution Width 14.5 % (12.1-15.2)
[2024-09-05 15:02] LABS: Albumin 3.3 g/dL (3.4-5.0); Alkaline Phosphatase 66 U/L (45-117); Anion Gap 10.4 mEq/L (5.0-15.0); BUN Blood Urea Nitrogen 31 mg/dL (7-18); Bicarbonate 27 mEq/L (21-32); Bilirubin Total 0.3 mg/dL (0.2-1.0); Globulin 3.4 g/dL (2.3-3.5); Glomerular Filtration Rate 28 ml/min (=/>90); Glucose Level 81 mg/dL (74-106); Lipase 116 U/L (13-75); NT PRO-BNP 78 pg/mL (<450); Protein, Total 6.7 g/dL (6.4-8.2); Sodium Level 135 mEq/L (136-145); Troponin High Sensitivity 11.4 pg/mL (<58.9)
[2024-09-05 15:05] LABS: ALT/SGPT < 14 U/L (13-56); AST/SGOT 19 U/L (15-37); Bilirubin Direct < 0.2 mg/dL (0-0.2); Bilirubin Indirect, Calculated 0.1 mg/dL (0.2-0.8); Magnesium 2.1 mg/dL (1.6-2.4); Potassium 5.4 mEq/L (3.5-5.1)
--- NOTE | 2024-09-05 15:11 | RAD REPORT ---
EXAMINATION: ONE VIEW CHEST XR CLINICAL INDICATION: COUGH TECHNIQUE: Frontal chest projection is submitted. Examination is limited by patient positioning and t echnique. COMPARISON: 06/30/2024 FINDINGS: Emphysematous changes are present throughout the lungs. Hazy opacity in the right lower lung field ap pears chronic. The heart is mildly enlarged. Expansile rib lesion right inferolateral thoracic cage noted, unchanged.
[2024-09-05 15:16] LABS: Specific Gravity 1.012 (1.005-1.030); Sqamous Epithelial <5 /HPF (None Seen); Urine Bacteria None Seen /HPF (<20); Urine Bilirubin NEGATIVE (Negative); Urine Blood Negative (Negative); Urine Clarity Turbid (Clear); Urine Color Light-Yellow (Yellow); Urine Crystals Unidentified Few /HPF (None Seen); Urine Culture Reflex Order NOT NEEDED; Urine Glucose NEGATIVE (Negative); Urine Ketones NEGATIVE (Negative); Urine Microscopic Reflex YN ORDER UMIC; Urine Mucus Slight /HPF (None Seen); Urine Nitrite NEGATIVE (Negative); Urine Protein NEGATIVE (Negative); Urine RBC <5 /HPF (None Seen); Urine Urobilinogen Normal (Normal); Urine Yeast (Budding) Trace /HPF (None Seen)
[2024-09-05] MEDS ORDERED: NA CHLORIDE 0.9% 1,000 ML ONE (15:58)
[2024-09-05] MEDS ORDERED: CEFTRIAXONE 1000 MG/VIAL ONE (15:58)
--- NOTE | 2024-09-05 16:10 | EDPHYS ---
Physician Documentation [facility] Name: Rosita Mills Age: 89 yrs Sex: Female : 1935 Arrival Date: 09/05/2024 Time: 13:18 Bed 4 Private MD: ED Physician Neftaly Moreira HPI: 09/05 15:53 This 89 yrs old Female presents to ER via Wheelchair with complaints of low casandra blood pressure. 15:53 WEAK. Onset: The symptoms/episode began/occurred just prior to arrival, this morning. casandra Severity of symptoms: At their worst the symptoms were mild in the emergency department the symptoms have improved moderately. The patient has experienced similar episodes in the past, a few times. Historical: - Allergies: 13:37 No Known Allergies; dd2 - PMHx: 13:37 carpal tunnel; Cataract; Deaf in right ear; FRACTURE C2 (Deaf in right ear); dd2 - PSHx: 13:37 carpal tunnel; cataract; Craniotomy; rotator cuff; Tonsillectomy; dd2 - Immunization history:: Adult Immunizations up to date. - Infectious Disease History:: Denies. - Social history:: Smoking status: Patient denies any tobacco usage or history of. ROS: 15:54 Constitutional: Negative for fever, chills, and weight loss, Eyes: Negative for injury, casandra pain, redness, and discharge, ENT: Negative for injury, pain, and discharge, Neck: Negative for injury, pain, and swelling, Cardiovascular: Negative for chest pain, palpitations, and edema, Exam: 15:55 Constitutional: This is a well developed, well nourished patient who is awake, alert, casandra and in no acute distress. Head/Face: Normocephalic, atraumatic. Eyes: Pupils equal round and reactive to light, extra-ocular motions intact. Lids and lashes normal. Conjunctiva and sclera are non-icteric and not injected. Cornea within normal limits. Periorbital areas with no swelling, redness, or edema. ENT: Nares patent. No nasal discharge, no septal abnormalities noted. Tympanic membranes are normal and external auditory canals are clear. Oropharynx with no redness, swelling, or masses, exudates, or evidence of obstruction, uvula midline. Mucous membranes moist. Neck: Trachea midline, no thyromegaly or masses palpated, and no cervical lymphadenopathy. Supple, full range of motion without nuchal rigidity, or vertebral point tenderness. No Meningismus. Chest/axilla: Normal chest wall appearance and motion. Nontender with no deformity. No lesions are appreciated. Cardiovascular: Regular rate and rhythm with a normal S1 and S2. No gallops, murmurs, or rubs. Normal PMI, no JVD. No pulse deficits. Respiratory: Lungs have equal breath sounds bilaterally, clear to auscultation and percussion. No rales, rhonchi or wheezes noted. No increased work of breathing, no retractions or nasal flaring. Abdomen/GI: Soft, non-tender, with normal bowel sounds. No distension or tympany. No guarding or rebound. No evidence of tenderness throughout. Back: No spinal tenderness. No costovertebral tenderness. Full range of motion. Skin: Warm, dry with normal turgor. Normal color with no rashes, no lesions, and no evidence of cellulitis. MS/ Extremity: Pulses equal, no cyanosis. Neurovascular intact. Full, normal range of motion., bilateral aka Neuro: Awake and alert, GCS 15, oriented to person, place, time, and situation. Cranial nerves II-XII grossly intact. Motor strength 5/5 in all extremities. Sensory grossly intact. Cerebellar exam normal. Normal gait. Psych: Awake, alert, with orientation to person, place and time. Behavior, mood, and affect are within normal limits. 15:55 ECG was reviewed by the Attending Physician. 15:55 ECG was reviewed by the Attending Physician. 16:16 ECG was reviewed by the Attending Physician. [facility] Vital Signs: 13:33 BP 99 / 59; Pulse 65; Resp 16; Temp 97.8; Pulse Ox 95% ; Weight 45.36 kg; Height 4 ft. dd2 8 in. ; Pain 0/10; 14:42 BP 112 / 57; Pulse 63; Resp 16 S; Pulse Ox 97% on R/A; kc6 16:42 BP 119 / 57; Pulse 70; Resp 18 S; Pulse Ox 95% on R/A; kc6 13:33 Body Mass Index 22.42 (45.36 kg, 142.24 cm) dd2 13:33 Pain Scale: Adult dd2 MDM: 13:46 Medical Screening Exam initiated casandra 15:59 Differential Diagnosis altered mental status, sepsis, flu. Data reviewed: vital signs, [facility] nurses notes, lab test result(s), EKG, radiologic studies, plain films. Consideration of Admission/Observation Escalation of care including admission/observation considered. I considered the following discharge prescriptions or medication management in the emergency department Medications were administered in the Emergency Department. See MAR. Independent interpretation of the following test(s) in the Emergency Department EKG: See my EKG interpretation above. Test considered but Not performed: Ultrasound NO 2 D ECHO. Care significantly affected by the following chronic conditions: Hypertension, C2 FX IN [place] , HE[place] WELL. 09/05 14:04 Order name: Basic Metabolic Panel; Complete Time: 15:50 [facility] 09/05 14:04 Order name: CBC with Diff; Complete Time: 15:50 [facility] 09/05 14:04 Order name: LFT's; Complete Time: 15:50 [facility] 09/05 14:04 Order name: Magnesium; Complete Time: 15:50 [facility] 09/05 14:04 Order name: NT PRO-BNP; Complete Time: 15:50 [facility] 09/05 14:04 Order name: PT-INR; Complete Time: 15:50 [facility] 09/05 14:04 Order name: Troponin HS; Complete Time: 15:50 [facility] 09/05 14:04 Order name: Lipase; Complete Time: 15:50 [facility] 09/05 14:04 Order name: UA Rfx Dickson Cult if indicated; Complete Time: 15:50 [facility] 09/05 15:50 Order name: Troponin High Sensitivity [facility] 09/05 15:51 Order name: BMP [facility] 09/05 16:24 Order name: Basic Metabolic Panel [facility] 09/05 16:24 Order name: Basic Metabolic Panel [facility] 09/05 16:24 Order name: Basic Metabolic Panel [facility] 09/05 16:24 Order name: CBC with Automated Diff [facility] 09/05 16:24 Order name: CBC with Automated Diff [facility] 09/05 16:24 Order name: CBC with Automated Diff [facility] 09/05 14:04 Order name: XRAY Chest (1 view); Complete Time: 15:50 [facility] 09/05 15:50 Order name: EKG; Complete Time: 15:51 [facility] 09/05 14:04 Order name: Cardiac monitoring; Complete Time: 14:40 [facility] 09/05 14:04 Order name: EKG - Nurse/Tech; Complete Time: 14:40 casandra 05/23 14:04 Order name: IV Saline Lock; Complete Time: 14: [facility] 09/05 14:04 Order name: Labs collected and sent; Complete Time: : [facility] 09/05 14:04 Order name: O2 Per Protocol; Complete Time: 14: [facility] 09/05 14:04 Order name: O2 Sat Monitoring; Complete Time: 14: [facility] 09/05 15:50 Order name: EKG - Nurse/Tech; Complete Time: 16: [facility] 09/05 15:50 Order name: PO challenge; Complete Time: 16:41 [facility] EC:55 Rate is 64 beats/min. Rhythm is regular. QRS [place] is Normal. ND interval is normal. QRS casandra interval is normal. QT interval is normal. No Q waves. T waves are Normal. ST Segment is depressed in leads II, III, aVF. Clinical impression: NSR w/ Non-specific ST/T Changes. Interpreted by me. Reviewed by me. 16:16 Rate is 68 beats/min. Rhythm is regular. QRS [place] is Normal. ND interval is normal. QRS casandra interval is normal. QT interval is normal. No Q waves. T waves are Normal. No ST changes noted. Clinical impression: Abnormal EKG without significant change. Interpreted by me. Reviewed by me. Administered Medications: 14:40 Drug: NS 0.9% IV 1000 ml IV at 1 bolus Per protocol; to be given as a bolus over 60 kc6 minutes Route: IV; Rate: 1 bolus; Site: left forearm; 17:43 Follow up: Response: No adverse reaction; IV Status: Completed infusion; IV Intake: kc6 1000ml 16:41 Drug: NS 0.9% IV 500 ml 500 ml IV at 1 bolus once; to be given as a bolus over 30 kc6 minutes Volume: 500 ml; Route: IV; Rate: 1 bolus; Site: left forearm; 17:43 Follow up: Response: No adverse reaction; IV Status: Completed infusion; IV Intake: kc6 500ml 16:42 Drug: Rocephin IV 1 grams IV at per protocol once; Given slow IV push per pharmacy kc6 instructions Route: IV; Rate: per protocol; Site: left forearm; 17:43 Follow up: Response: No adverse reaction; IV Status: Completed infusion; IV Intake: [id number] 16:42 Drug: Aspirin PO Chewable Tablet 162 mg PO once Route: PO; kc6 17:43 Follow up: Response: No adverse reaction kc6 16:42 Drug: Famotidine IVP 20 mg IVP once; dilute with 10 mL 0.9% NaCl; give over 2 minutes kc6 Route: IVP; Site: left forearm; 17:43 Follow up: Response: No adverse reaction kc6 Disposition Summary: 09/05/24 16:10 Hospitalization Ordered Notes: Hospitalization Status: Observation casandra Provider: Wilton Marsh cha Location: Telemetry/MedSurg (Inpatient) casandra Condition: Fair casandra Problem: new casandra Symptoms: have improved casandra Bed/Room Type: Standard casandra Room Assignment: 405(09/05/24 16:48) eb Diagnosis - Weakness casandra - Hypotension, unspecified casandra - 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 EDMS EDMS 14:05 14:05 CBC+H.LAB.BRZ ordered. EDMS EDMS 14:05 14:05 HEPATIC FUNCTION+C.LAB.BRZ ordered. EDMS EDMS 14:05 14:05 MAGNESIUM+C.LAB.BRZ ordered. EDMS EDMS 14:05 14:05 PROBNP+C.LAB.BRZ ordered. EDMS EDMS 14:05 14:05 PROTIME (+INR)+COAG.LAB.BRZ ordered. EDMS EDMS 14:05 14:05 Troponin High Sensitivity+C.LAB.BRZ ordered. EDMS EDMS 14:05 14:05 LIPASE+C.LAB.BRZ ordered. EDMS EDMS 14:05 14:05 UA Rfx Dickson Cult if indicated+U.LAB.BRZ ordered. EDMS EDMS 14:05 14:05 Chest Single View+RAD.RAD.BRZ ordered. EDMS EDMS 16:48 16:10 casandra eb
--- NOTE | 2024-09-05 16:10 | ER ---
Nurse's Notes [facility] Name: Rosita Mills Age: 89 yrs Sex: Female : 1935 Arrival Date: 09/05/2024 Time: 13:18 Bed 4 Private MD: Diagnosis: Weakness;Hypotension, unspecified;Unspecified kidney failure-MILD RENAL INSUFFICENCY;Hyperkalemia Presentation: 09/05 13:33 Chief complaint: Patient's son or daughter states: HOME HEALTH PT CHECKED BP AND WAS dd2 98/52, WAS ADVISED TO COME TO THE ER FOR LOW BP. DAUGHTER REPORTS TOOK BP MED AT 9:30 AM. Coronavirus screen: At this time, the client does not indicate any symptoms associated with coronavirus-19. Ebola Screen: No symptoms or risks identified at this time. Initial Sepsis Screen: Does the patient meet any 2 criteria? No. Patient's initial sepsis screen is negative. Does the patient have a suspected source of infection? No. Patient's initial sepsis screen is negative. Risk Assessment: Do you want to hurt yourself or someone else? Patient reports no desire to harm self or others. Onset of symptoms was September 05, 2024. 13:33 Method Of Arrival: Wheelchair dd2 13:33 Acuity: SID 4 dd2 Triage Assessment: 13:37 General: Appears in no apparent distress. comfortable, Behavior is calm, cooperative, dd2 appropriate for age. Pain: Denies pain. Cardiovascular: JVD is absent Patient's skin is warm and dry. Parent/caregiver reports patient has had HOME HEALTH PPT REPORTED LOW BP 98/52. Historical: - Allergies: 13:37 No Known Allergies; dd2 - PMHx: 13:37 carpal tunnel; Cataract; Deaf in right ear; FRACTURE C2 (Deaf in right ear); dd2 - PSHx: 13:37 carpal tunnel; cataract; Craniotomy; rotator cuff; Tonsillectomy; dd2 - Immunization history:: Adult Immunizations up to date. - Infectious Disease History:: Denies. - Social history:: Smoking status: Patient denies any tobacco usage or history of. Screenin:41 [facility] ED Fall Risk Assessment (Adult) History of falling in the last 3 months, kc6 including since admission Yes- single mechanical fall (1 pt) Confusion or Disorientation No (0 pts) Intoxicated or Sedated No (0 pts) Impaired Gait No (0 pts) Mobility Assist Device Used No (0 pt) Altered Elimination No (0 pt) Score/Fall Risk Level 0 - 2 = Low Risk Oriented to surroundings. Abuse screen: Denies threats or abuse. Denies injuries from another. Nutritional screening: No deficits noted. Tuberculosis screening: No symptoms or risk factors identified. Assessment: 14:41 General: Appears in no apparent distress. comfortable, well groomed, well developed, kc6 Behavior is calm, cooperative, appropriate for age. Pain: Denies pain. Neuro: Level of Consciousness is awake, alert, obeys commands, Oriented to person, place, time, situation, Appropriate for age. Cardiovascular: Capillary refill < 3 seconds. Respiratory: Airway is patent Trachea midline Respiratory effort is even, unlabored, Respiratory pattern is regular, symmetrical. GI: No signs and/or symptoms were reported involving the gastrointestinal system. : No signs and/or symptoms were reported regarding the genitourinary system. EENT: No signs and/or symptoms were reported regarding the EENT system. Derm: No signs and/or symptoms reported regarding the dermatologic system. Skin is intact, is fragile, is thin, with poor turgor Skin is pink, warm \T\ dry. Musculoskeletal: No signs and/or symptoms reported regarding the musculoskeletal system. Circulation, motion, and sensation intact. Range of motion: intact in all extremities. 16:42 Reassessment: Patient appears in no apparent distress at this time. No changes from kc6 previously documented assessment. Patient and/or family updated on plan of care and expected duration. Pain level reassessed. Patient is alert, oriented x 3, equal unlabored respirations, skin warm/dry/pink. 17:54 Reassessment: Patient appears in no apparent distress at this time. No changes from kc6 previously documented assessment. Patient and/or family updated on plan of care and expected duration. Pain level reassessed. Patient is alert, oriented x 3, equal unlabored respirations, skin warm/dry/pink. Vital Signs: 13:33 BP 99 / 59; Pulse 65; Resp 16; Temp 97.8; Pulse Ox 95% ; Weight 45.36 kg; Height 4 ft. dd2 8 in. ; Pain 0/10; 14:42 BP 112 / 57; Pulse 63; Resp 16 S; Pulse Ox 97% on R/A; kc6 16:42 BP 119 / 57; Pulse 70; Resp 18 S; Pulse Ox 95% on R/A; kc6 13:33 Body Mass Index 22.42 (45.36 kg, 142.24 cm) dd2 13:33 Pain Scale: Adult dd2 ED Course: 13:19 Patient arrived in ED. im 13:37 Triage completed. dd2 13:37 Arm band placed on right wrist. dd2 13:46 Neftaly Moreira MD is Attending Physician. [facility] 14:08 Syeda Rodríguez, TARA is Primary Nurse. kc6 14:40 Patient has correct armband on for positive identification. Bed in low position. Call [facility] light in reach. Side rails up X 1. Adult w/ patient. Pulse ox on. NIBP on. Door closed. Noise minimized. Lights dimmed. Warm blanket given. Pillow given. Verbal reassurance given. 14:40 Initial lab(s) drawn, by [facility], sent to lab. EKG done, by ED staff, reviewed by Neftaly Moreira MD. Inserted saline lock: 20 gauge in left forearm, using aseptic technique. Blood collected. Flushed with 10 mL NS. Patient maintains SpO2 saturation greater than 95% on room air. 15:06 XRAY Chest (1 view) In Process Unspecified. EDMS 15:12 Assisted to bedside commode. [facility] 15:12 Urine collected: clean catch specimen, clear. [facility] 16:07 Wilton Marsh MD is Hospitalizing Provider. [facility] 17:54 Diet: Patient given a regular meal tray. Tolerated well. Assisted to bedside commode. [facility] 17:54 No provider procedures requiring assistance completed. Patient admitted, IV remains in kc place. Administered Medications: 14:40 Drug: NS 0.9% IV 1000 ml IV at 1 bolus Per protocol; to be given as a bolus over 60 kc6 minutes Route: IV; Rate: 1 bolus; Site: left forearm; 17:43 Follow up: Response: No adverse reaction; IV Status: Completed infusion; IV Intake: kc6 1000ml 16:41 Drug: NS 0.9% IV 500 ml 500 ml IV at 1 bolus once; to be given as a bolus over 30 kc6 minutes Volume: 500 ml; Route: IV; Rate: 1 bolus; Site: left forearm; 17:43 Follow up: Response: No adverse reaction; IV Status: Completed infusion; IV Intake: kc6 500ml 16:42 Drug: Rocephin IV 1 grams IV at per protocol once; Given slow IV push per pharmacy kc6 instructions Route: IV; Rate: per protocol; Site: left forearm; 17:43 Follow up: Response: No adverse reaction; IV Status: Completed infusion; IV Intake: [id number] 16:42 Drug: Aspirin PO Chewable Tablet 162 mg PO once Route: PO; kc6 17:43 Follow up: Response: No adverse reaction kc6 16:42 Drug: Famotidine IVP 20 mg IVP once; dilute with 10 mL 0.9% NaCl; give over 2 minutes kc6 Route: IVP; Site: left forearm; 17:43 Follow up: Response: No adverse reaction kc6 Medication: 17:54 VIS not applicable for this client. kc6 Intake: 17:43 IV: 10ml; Total: 10ml. kc6 17:43 IV: 500ml; Total: 510ml. kc6 17:43 IV: 1000ml; Total: 1510ml. kc6 Outcome: 16:10 Decision to Hospitalize by Provider. casandra 17:54 Admitted to Med/surg accompanied by tech, via wheelchair, room 405, with chart, kc6 17:54 Condition: good 17:54 Instructed on the need for admit, 17:54 Patient left the ED. kc6 Signatures: Dispatcher [employer] Neftaly Trujillo MD MD cha Campbell, Kaitlyn, RN RN kc6 Olga Gage DIANA RN RN dd2
[2024-09-05] MEDS ORDERED: ONDANSETRON 4 MG/2 ML VIAL IV PRN (16:21)
[2024-09-05] MEDS ORDERED: ASPIRIN 81 MG CHEWABLE TABLET ONE (16:22)
[2024-09-05] MEDS ORDERED: FAMOTIDINE 20 MG/2 ML VIAL IV ONE (16:22)
--- NOTE | 2024-09-05 16:27 | P.HP ---
Certification for Inpatient Patient admitted to: Observation With expected LOS: <2 Midnights Patient will require the following post-hospital care: None Practitioner: I am a practitioner with admitting privileges, knowledge of patient current condition, hospital course, and medical plan of care. Services: Services provided to patient in accordance with Admission requirements found in Title 42 Section 412.3 of the Code of Federal Regulations Patient History Date of Service: 09/05/24 Reason for admission: MUNIR, hypotension History of Present Illness: 89-year-old female with history of C2 fracture June 30 treated nonoperatively, hypertension, dementia presents to the emergency department with chief complaint of low blood pressure. Her home health nurse had, checked her blood pressure and found it to be low in the 90s systolic and she was referred to the emergency department for further evaluation. Patient was evaluated here in the emergency department her labs are significant for a mild MUNIR with a creatinine of 1.7, baseline creatinine is around 1, potassium was 5.4 but with mild hemolysis, CBC is unremarkable chest x-ray showed emphysematous changes present on the lungs. Hazy opacity in the right lower lung field which appears chronic. Heart mildly enlarged. Expansile rib lesion right inferolateral thoracic cage noted which is unchanged. Given the hypotension, mild acute kidney injury ED provider wishes to admit patient under observation - Past Medical/Surgical History -: C2 fracture -: Hypertension -: Dementia Psychosocial/ Personal History: Lives at home with family - Social History Alcohol use: No CD- Drugs: No Caffeine use: Yes Place of Residence: Home Review of Systems 10-point ROS is otherwise unremarkable General: Weakness Physical Examination - Physical Exam General: Alert, In no apparent distress, Oriented x2 HEENT: Atraumatic, PERRLA Neck: Supple, 2+ carotid pulse no bruit, No LAD Respiratory: Clear to auscultation bilaterally, Normal air movement Cardiovascular: Regular rate/rhythm, Normal S1 S2 Gastrointestinal: Normal bowel sounds, No tenderness Musculoskeletal: No tenderness Integumentary: No rashes Neurological: Normal gait, Normal speech, Normal strength at 5/5 x4 extr - Studies Laboratory Data (last 24 hrs) 09/05/24 09/05/24 09/05/24 14:34 14:34 14:34 WBC 6.20 Hgb 12.5 Hct 37.1 Plt Count 205 PT 11.1 INR 0.97 Sodium 135 L Potassium 5.4 H BUN 31 H Creatinine 1.71 H Glucose 81 Magnesium 2.1 Total Bilirubin 0.3 AST 19 ALT < 14 Alkaline Phosphatase 66 Lipase 116 H Assessment and Plan - Plan Assessment: MUNIR Hypotension Recent C2 fracture managed nonoperatively Dementia Plan: MUNIR Hypotension Patient appears on the dry side Family reports difficulty getting her to intake fluids Will give gentle IV fluids overnight, recheck BMP and blood pressures in the morning Family unsure of home at occasions will need to attempt to obtain these and review Recent C2 fracture managed nonoperatively Has [place] collar in place Was recently instructed she was able to take it off when eating etc. Dementia At baseline mental status, resume home medications once verified DVT PPX: Heparin subcu Code status: Full code Discharge Plan: Home Plan to discharge in: 24 Hours - Advance Directives Does patient have a Living Will: No Does patient have a Durable POA for Healthcare: Yes Critical Care: No Time Spent Managing Pts Care (In Minutes): 62
[2024-09-05 16:54] LABS: Anion Gap 9.9 mEq/L (5.0-15.0); Potassium 4.9 mEq/L (3.5-5.1); Troponin High Sensitivity 11.5 pg/mL (<58.9)
[2024-09-05 18:08] VITALS: BMI 3142.7
[2024-09-05] MEDS: NA CHLORIDE 0.9% 1,000 ML IV SCH (18:20)
[2024-09-05] MEDS ORDERED: CETIRIZINE HCL 5 MG TABLET PO PRN (20:44)
[2024-09-05] MEDS: MONTELUKAST 10 MG TAB PO SCH (21:06)
[2024-09-05] MEDS: TRAZODONE 50 MG TABLET PO SCH (21:06)
[2024-09-05] MEDS: levETIRAcetam 500 MG/5 ML OSYR PO SCH (21:06)
[2024-09-05] MEDS: HEPARIN 5000 UNIT/ML 1 ML VIAL SQ SCH (21:12)
[2024-09-05 21:34] VITALS: TEMP 97.7
[2024-09-06 06:11] LABS: Absolute Basophils 0.1 K/uL (0-0.5); Absolute Eosinophils 0.2 K/uL (0-0.5); Absolute Lymphocytes (CBC) 0.9 K/uL (0.7-4.9); Absolute Monocytes 0.4 K/uL (0.1-1.3); Absolute Neutrophil 5.3 K/uL (1.8-8.0); Basophils % 0.9 % (0-1.3); Eosinophils % 2.7 % (0-4.4); Hematocrit 33.4 % (36.0-45.0); Hemoglobin 11.6 g/dL (12.0-15.0); Lymphocytes % 13.3 % (15.3-44.8); MCH 33.5 pg (27.0-35.0); MCHC 34.8 g/dL (32.0-36.0); MCV 96.3 fL (80-100); MPV 8.6 fL (7.6-11.3); Monocytes % 6.2 % (3.3-12.3); Neutrophils % 76.9 % (41.7-73.7); Nucleated Red Blood Cells % 0.1 % (0-0); Platelets 190 thou/uL (152-406); RBC Red Blood Cell Count 3.47 M/uL (3.86-4.86); Red Cell Distribution Width 14.6 % (12.1-15.2)
[2024-09-06 06:34] LABS: Anion Gap 7.5 mEq/L (5.0-15.0); Potassium 4.5 mEq/L (3.5-5.1)
[2024-09-06 07:58] VITALS: O2SAT 95
[2024-09-06 08:08] VITALS: BP 129/67
[2024-09-06] MEDS: MULTIVITAMIN TAB PO SCH (08:41)
[2024-09-06] MEDS: ESCITALOPRAM 20 MG TAB PO SCH (08:42)
[2024-09-06] MEDS: ATORVASTATIN 10 MG TAB PO SCH (08:42)
[2024-09-06] MEDS: PANTOPRAZOLE 40MG TABLET PO SCH (08:42)
[2024-09-06] MEDS: MEMANTINE HCL 10 MG TABLET PO SCH (08:42)
[2024-09-06] MEDS: HOME MED 1 EA UNK (Mirabegron [Myrbetriq] 50 MG Tab.Er.24h) PO SCH (08:43)
--- NOTE | 2024-09-06 08:50 | P.DS ---
Admission Date: 09/05/24 Discharge Date: 09/06/24 Disposition: ROUTINE DISCHARGE Discharge Condition: GOOD Reason for Admission: MUNIR, hypotension Brief History of Present Illness: 89-year-old female with history of C2 fracture June 30 treated nonoperatively, hypertension, dementia presents to the emergency department with chief complaint of low blood pressure. Her home health nurse had, checked her blood pressure and found it to be low in the 90s systolic and she was referred to the emergency department for further evaluation. Patient was evaluated here in the emergency department her labs are significant for a mild MUNIR with a creatinine of 1.7, baseline creatinine is around 1, potassium was 5.4 but with mild hemolysis, CBC is unremarkable chest x-ray showed emphysematous changes present on the lungs. Hazy opacity in the right lower lung field which appears chronic. Heart mildly enlarged. Expansile rib lesion right inferolateral thoracic cage noted which is unchanged. Given the hypotension, mild acute kidney injury ED provider wishes to admit patient under observation Hospital Course: Assessment: MUNIR Hypotension Recent C2 fracture managed nonoperatively Dementia 89-year-old female was admitted under observation for low blood pressure, mild acute kidney injury. She was given gentle IV fluids overnight, kidney function is back at baseline with a creatinine of 1.06, patient is ambulatory around the nurses station and blood pressure is 129 systolic this morning. Family reports poor oral intake lately, counseled on encouraging oral fluid intake. Patient stable for discharge and outpatient follow-up with her primary care doctor. Recommend checking blood pressure at least once daily for the next 1 to 2 weeks, hold losartan if blood pressure is less than 120 and follow-up with primary care doctor for further titration Vital Signs/Physical Exam: Temp Pulse Resp BP Pulse Ox 97.7 F 73 14 129/67 95 09/06/24 08:00 09/06/24 08:00 09/06/24 08:00 09/06/24 08:00 09/06/24 08:00 General: Alert, In no apparent distress, Oriented x2 HEENT: Atraumatic, PERRLA Neck: Supple, JVD not distended Respiratory: Clear to auscultation bilaterally, Normal air movement Cardiovascular: Regular rate/rhythm, Normal S1 S2 Gastrointestinal: Normal bowel sounds, No tenderness Musculoskeletal: No tenderness Integumentary: No rashes Neurological: Normal speech, Normal affect Laboratory Data at Discharge: WBC 6.90 thou/uL (4.3-10.9) 09/06/24 05:22 Hgb 11.6 g/dL (12.0-15.0) L 09/06/24 05:22 Hct 33.4 % (36.0-45.0) L 09/06/24 05:22 Plt Count 190 thou/uL (152-406) 09/06/24 05:22 PT 11.1 SECONDS (10-13.0) 09/05/24 14:34 INR 0.97 09/05/24 14:34 Sodium 144 mEq/L (136-145) D 09/06/24 05:22 Potassium 4.5 mEq/L (3.5-5.1) 09/06/24 05:22 BUN 22 mg/dL (7-18) H 09/06/24 05:22 Creatinine 1.06 mg/dL (0.55-1.02) H 09/06/24 05:22 Glucose 79 mg/dL (74-106) 09/06/24 05:22 Magnesium 2.1 mg/dL (1.6-2.4) 09/05/24 14:34 Total Bilirubin 0.3 mg/dL (0.2-1.0) 09/05/24 14:34 AST 19 U/L (15-37) 09/05/24 14:34 ALT < 14 U/L (13-56) 09/05/24 14:34 Alkaline Phosphatase 66 U/L (45-117) 09/05/24 14:34 Lipase 116 U/L (13-75) H 09/05/24 14:34 Home Medications: Cetirizine HCl [Zyrtec] 10 mg PO DAILY PRN 09/05/24 Escitalopram Oxalate 10 mg PO DAILY 09/05/24 Ibuprofen 800 mg PO Q12H PRN 09/05/24 Losartan Potassium 50 mg PO BEDTIME 09/05/24 Memantine HCl/Donepezil HCl [Namzaric 7 mg-10 mg Capsule] 1 tab PO DAILY 09/05/24 Mirabegron [Myrbetriq] 50 mg PO DAILY 09/05/24 Montelukast Sodium 10 mg PO BEDTIME 09/05/24 Multivitamin 1 tab PO DAILY 09/05/24 Omeprazole [Prilosec] 40 mg PO DAILY 09/05/24 Pregabalin [Lyrica*] 100 mg PO DAILY 09/05/24 Simvastatin 10 mg PO DAILY 09/05/24 Trazodone [Desyrel*] 100 mg PO BEDTIME 09/05/24 levETIRAcetam [Levetiracetam] 5 ml PO BID 09/05/24 Physician Discharge Instructions: 89-year-old female was admitted under observation for low blood pressure, mild acute kidney injury. She was given gentle IV fluids overnight, kidney function is back at baseline with a creatinine of 1.06, patient is ambulatory around the nurses station and blood pressure is 129 systolic this morning. Family reports poor oral intake lately, counseled on encouraging oral fluid intake. Patient stable for discharge and outpatient follow-up with her primary care doctor. Recommend checking blood pressure at least once daily for the next 1 to 2 weeks, hold losartan if blood pressure is less than 120 and follow-up with primary care doctor for further titration Diet: Regular Activity: Ad dyan Followup: HAROON PATIÑO [Primary Care Provider] - 1-2 Weeks Time spent managing pt's care (in minutes): 37
--- NOTE | 2024-09-09 12:30 | EKG ---
Test Date: 2024-09-05 Test Time: 16:04:02 Director [employer]: MANE MEASUREMENT RESULTS: Intervals: Rate: 68 SD: 152 QRSD: 94 QT: 414 QTc: 440 [place]: P: 39 SD: 152 QRS: 101 T: -1 INTERPRETIVE STATEMENTS: Sinus rhythm with premature supraventricular complexes and with occasional premature ventricular complexes Rightward axis Possible Anterior infarct, age undetermined T wave abnormality, consider inferior ischemia Abnormal ECG Compared to ECG 09/05/2024 14:16:22 Atrial premature complex(es) now present Ventricular premature complex(es) now present Myocardial infarct finding still present T-wave abnormality still present Possible ischemia still present Electronically Signed On 09-09-24 12:23:41 CDT by Jason Willard
--- NOTE | 2024-09-09 12:31 | EKG ---
Test Date: 2024-09-05 Test Time: 14:16:22 Estate Planning Counselor: MANE MEASUREMENT RESULTS: Intervals: Rate: 64 [place]: 154 QRSD: 90 QT: 400 QTc: 412 [place]: P: 27 [place]: 154 QRS: 107 T: -1 INTERPRETIVE STATEMENTS: Normal sinus rhythm Rightward axis Anterior infarct, age undetermined T wave abnormality, consider inferior ischemia Abnormal ECG Compared to ECG 06/30/2024 14:13:53 Right-axis deviation now present Myocardial infarct finding now present T-wave abnormality now present Possible ischemia now present Electronically Signed On 09-09-24 12:23:57 CDT by Jason Willard
== END 2024-09-06 09:59 | disposition home or self-care (01) ==
LOC: ER 13:18 → ERHOLD 16:32 → 4TH 17:37
PROVIDERS: ADMIT Internal Medicine Sleep Medicine; ATTEND Hospitalist
DX: N17.9 Acute kidney failure, unspecified (principal); I95.9 Hypotension, unspecified; F03.90 Unspecified dementia, unspecified severity, without behavioral disturbance, psychotic disturbance, mood disturbance, and anxiety; R53.1 Weakness; E87.5 Hyperkalemia; S12.100D Unspecified displaced fracture of second cervical vertebra, subsequent encounter for fracture with routine healing; H91.91 Unspecified hearing loss, right ear
CPT/HCPCS: 96365; 96361; 93005 ×2; 85025 ×2; 81001; 80048 ×3; 36415; 83735; 85610; 80076; 84484 ×2; 83690; 83880; 71045; 96375; 99285; J1644 ×2; J7040; J7030 ×2; J0696; G0378 ×3